=== PATIENT | female | born 1965 | race Caucasian/White ===

== ENCOUNTER 2019-09-04 23:04 | Inpatient (IN) ==
[2019-09-05 00:04] LABS: Appearance Urine Clear (Clear); Bacteria Urine Automated Negative (Negative); Bilirubin Urine Negative (Negative); Blood Urine Trace (Negative); Color Urine Yellow; Glucose Urine UA Negative (Negative); Ketones Urine 3+ (Negative); Leukocyte Esterase Urine 1+ (Negative); Nitrite Urine Negative (Negative); Protein Urine Negative (Negative); RBC Urine Automated 0-4 /hpf (0-4); Specific Gravity Urine 1.016 (1.000-1.030); Urobilinogen Urine Negative (Negative)
[2019-09-05 00:09] LABS: Basophils # (auto) 0.03 K/uL (0-0.2); Basophils % (auto) 0.2 %; Eosinophils # (auto) 0.01 K/uL (0-0.5); Eosinophils % (auto) 0.1 %; Hemoglobin 13.9 g/dL (12.0-16.0); Immature Granulocytes # (auto) 0.05 K/uL (0.00-0.02); Immature Granulocytes % (auto) 0.3 %; Lymphocytes # (auto) 0.46 K/uL (1.2-3.4); Lymphocytes % (auto) 3.1 %; Mean Corpuscular Hemoglobin 29.2 pg (25-34); Mean Corpuscular Hgb Conc 33.1 g/dL (32-36); Mean Corpuscular Volume 88.2 fL (80-100); Mean Platelet Volume 10.7 fL (7.4-10.4); Monocytes # (auto) 0.82 K/uL (0.11-0.59); Monocytes % (auto) 5.6 %; Neutrophils # (auto) 13.39 K/uL (1.4-6.5); Neutrophils % (auto) 90.7 %; Platelet Count 197 K/uL (130-400); RDW Coefficient of Variation 13.3 % (11.5-14.5); RDW Standard Deviation 43.1 fL (36.4-46.3); Red Blood Count 4.76 M/uL (4.2-5.4); White Blood Count 14.76 K/uL (4.8-10.8)
[2019-09-05 00:19] LABS: Partial Thromboplastin Ratio 0.8; Partial Thromboplastin Time 23.7 Seconds (21.0-31.0)
[2019-09-05 00:28] LABS: Albumin Level 3.9 gm/dl (3.4-5.0); BUN Creatinine Ratio 17.9 (10-20); Calcium 9.6 mg/dl (8.5-10.1); Creatinine Clr Calc Pharmacy 98.8 ml/min; Est GFR (African American) 116.1; Est GFR (Non-African American) 100.1; Magnesium 1.6 mg/dl (1.8-2.4); Potassium 3.1 mmol/L (3.5-5.1)
--- NOTE | 2019-09-05 00:30 | Emergency Department Note ---
Impression & Plan Left ureteral calculus, UTI (urinary tract infection), Hydronephrosis, Hypokalemia ED Provider Note NAME: PAULINA HIGGINBOTHAM AGE: 53 SEX: F ARRIVES VIA: Walk-In INFORMANT: [Patient] ED PROVIDER(S): Jeniffer Flowers DO CHIEF COMPLAINT: [Shaking chills and nausea] PLAN: Disposition: [Admitted to the [facility] service] MEDICAL DECISION MAKING: This is a 53-year-old female patient with a longstanding history of previous ureteral calculi, pyelonephritis, hydronephrosis, lithotripsy and ureteral stents. The last episode of a ureteral stent was in [address] Robles. The patient developed urinary symptoms approximately 5 days ago and now has developed shaking chills and nausea. CT scan shows evidence of bilateral hydronephrosis with the left being worse than the right and a 2 mm stone noted in the left mid ureter. The patient has some mild leukocytosis at 14. She has been taking Macrobid as an outpatient for the past 24 hours. She has been started on IV Rocephin the patient will be [facility]. Triage Nursing notes reviewed and agree them. [Prior medical records reviewed] Vital Signs: reviewed and remarkable for low-grade fever Differential diagnosis: [Obstructive uropathy, pyelonephritis, ureteral calculi, sepsis,] ER treatment provided: [Oral Tylenol, oral potassium, IV ceftriaxone, IV normal saline bolus, IV normal saline drip] Diagnostics interpreted by me: ECG: Sinus tachycardia at [address] or T wave changes. No ST segment elevation. No ischemia no ectopy as per my interpretation Cardiac Monitoring: Normal sinus rhythm at a rate of 97 Laboratory studies: [See below] Imaging studies: As per stat rad: CT abdomen and pelvis without contrast: Status post cholecystectomy. Left greater than right hydronephrosis. Left- sided hydroureter with 2 mm mid left ureteral stone. Punctate additional nonobstructive renal calcifications. Normal your uterus. Urinary bladder is unremarkable. HPI: 53/F arrives for evaluation of shaking chills and nausea. The patient developed urinary symptoms approximately 4 days ago. She noticed suprapubic pr essure and urinary frequency. 2 days ago, the patient contacted her PCP by phone and they started her on Macrobid as she does have a history of urinary tract infections. 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. She was there tonight and developed shaking chills and nausea. She has a history of sepsis secondary to obstructing kidney stones and was concerned that might be happening again and came here for evaluation. Nothing seemed to be making the patient's symptoms any better. She had no episodes of vomiting. ROS: See above HPI for pertinent positives & negatives. A total of [10] systems reviewed and were otherwise negative. PAST MEDICAL HISTORY:Pyelonephritis; obstructing kidney stones with stent placement; lithotripsy PAST SURGICAL HISTORY:Stent placement SOCIAL HISTORY:Patient works as a nurse at [employer] HOME MEDICATIONS:Tylenol and Macrobid ALLERGIES:See list VITALS:Stable PHYSICAL EXAMINATION: HEENT: Head - normocephalic and atraumatic Pupils are equal, round, and reactive to light. Extraocular eye muscles are intact, and sclera are anicteric. Nose - moist nasal mucosa without discharge. Mouth - moist buccal mucosa. Oropharynx is nonerythematous and there is no tonsillar exudate or edema noted. Neck: Supple; no JVD, nuchal rigidity, cervical lymphadenopathy. Heart: Regular rate and rhythm. There is a normal S1 and S2 with no murmurs, clicks, or gallops appreciated. Lungs: Clear to auscultation bilaterally with no wheezes, rales, or rhonchi. Abdomen: Soft, completely nontender, nondistended, with good bowel sounds. There are no palpable pulsatile masses or hepatosplenomegaly. There is no guarding, rigidity, or rebound noted. Extremities: No evidence of cyanosis, clubbing, or edema. There are easily palpable peripheral pulses. Skin: warm and dry with good turgor and no rashes. ED COURSE: Times/Reassessments: 0005 the patient was evaluated in room A3. A complete history and physical was performed. An IV lock was initiated and labs were drawn as above. A septic protocol was performed. An order was placed for continuous cardiac monitoring. The patient was in a sinus tachycardia at 104. The patient went for a CT scan of the abdomen/pelvis to rule out obstructive uropathy. The patient will be given a normal saline bolus. 0120: I reevaluated the patient at this time. She was complaining of a headache and will be given Tylenol. I ordered ceftriaxone IV. She will be given oral potassium and started on a normal saline drip. Jeniffer Flowers DO Past Med/Surg History Social History Preferred Language: Danish Feels Safe at Home: Yes Smoking Status: Former smoker Allergies Allergies Allergy/AdvReac Type Severity Reaction Status Date / Time hydromorphone [From Dilaudid] Allergy Severe hallucinati Verified 09/04/19 23:30 ons morphine Allergy Severe Anxiety Verified 09/04/19 23:30 chocolate flavor Allergy Intermediate Hives Verified 09/04/19 23:30 ciprofloxacin Allergy Intermediate Hives Verified 09/04/19 23:30 codeine Allergy Intermediate muscle Verified 09/04/19 23:30 spasms ibuprofen Allergy Intermediate Palpitation Verified 09/05/19 00:39 s acetaminophen [From Percocet] Allergy Mild diaphoretic Verified 09/04/19 23:30 oxycodone [From Percocet] Allergy Mild diaphoretic Verified 09/04/19 23:30 propoxyphene Allergy Mild diaphoresis Verified 09/04/19 23:30 [From Darvocet-N 100] Home Meds Home Medications Medication Instructions Recorded Confirmed acetaminophen [Tylenol] 650 mg PO DIRECTED 09/04/19 09/04/19 nitrofurantoin monohyd/m-cryst 100 mg PO BID 09/04/19 09/04/19 [Macrobid] Results & Data (ED) Vital Signs Vital Signs - 24 hr 09/04/19 23:11 09/04/19 23:53 09/05/19 00:53 Temperature 37.6 C H 37.5 C Temperature Source Oral Oral Pulse Rate 113 H Pulse Rate [Right Finger] 97 H Respiratory Rate 20 16 Respiratory Effort / Characteristics Non-Labored Spontaneous Non-Labored Spontaneous Respiratory Depth Normal Normal Respiratory Pattern Regular Blood Pressure 148/93 H Blood Pressure [Right Arm] 125/82 Blood Pressure Mean 111 Blood Pressure Mean [Right Arm] 96 Blood Pressure Position [Right Arm] Sitting Pulse Oximetry 99 93 95 Oxygen Delivery Method Room Air Room Air Room Air Sepsis Recent Fever Within 48 Hours Yes Sepsis Action Taken by Nursing No Action Required 09/05/19 02:39 Temperature Temperature Source Pulse Rate 85 Pulse Rate [Right Finger] Respiratory Rate 18 Respiratory Effort / Characteristics Respiratory Depth Respiratory Pattern Blood Pressure 104/59 L Blood Pressure [Right Arm] Blood Pressure Mean Blood Pressure Mean [Right Arm] Blood Pressure Position [Right Arm] Pulse Oximetry 95 Oxygen Delivery Method Room Air Sepsis Recent Fever Within 48 Hours Sepsis Action Taken by Nursing Laboratory Data Result diagrams: 09/04/19 23:58 09/04/19 23:58 Lab Results 09/04/19 09/04/19 09/04/19 Range/Units 23:40 23:58 23:58 WBC 14.76 H (4.8-10.8) K/uL RBC 4.76 (4.2-5.4) M/uL Hgb 13.9 (12.0-16.0) g/dL Hct 42.0 (37-47) % MCV 88.2 (80-100) fL MCH 29.2 (25-34) pg MCHC 33.1 (32-36) g/dL RDW Std Deviation 43.1 (36.4-46.3) fL RDW Coeff of Arlene 13.3 (11.5-14.5) % Plt Count 197 (130-400) K/uL MPV 10.7 H (7.4-10.4) fL Immature Gran % (Auto) 0.3 % Neut % (Auto) 90.7 % Lymph % (Auto) 3.1 % [place] % (Auto) 5.6 % Eos % (Auto) 0.1 % Baso % (Auto) 0.2 % Immature Gran # (Auto) 0.05 H (0.00-0.02) K/uL Neut # (Auto) 13.39 H (1.4-6.5) K/uL Lymph # (Auto) 0.46 L (1.2-3.4) K/uL [place] # (Auto) 0.82 H (0.11-0.59) K/uL Eos # (Auto) 0.01 (0-0.5) K/uL Baso # (Auto) 0.03 (0-0.2) K/uL PT 11.0 (9.0-12.0) Seconds INR 1.0 (0.9-1.1) APTT 23.7 (21.0-31.0) Seconds PTT Ratio 0.8 Sodium (136-145) mmol/L Potassium (3.5-5.1) mmol/L Chloride (98-107) mmol/L Carbon Dioxide (21-32) mmol/L Anion Gap (3-11) BUN (7-18) mg/dl Creatinine (0.6-1.2) mg/dl Est Cr Clr Drug Dosing ml/min Est GFR ( Amer) Est GFR (Non-Af Amer) BUN/Creatinine Ratio (10-20) Glucose (70-99) mg/dl Lactate (0.4-2.0) mmol/L Calcium (8.5-10.1) mg/dl Magnesium (1.8-2.4) mg/dl Total Bilirubin (0.2-1) mg/dl AST (15-37) U/L ALT (12-78) U/L Alkaline Phosphatase (45-117) U/L Total Protein (6.4-8.2) gm/dl Albumin (3.4-5.0) gm/dl Globulin (2.5-4.0) gm/dl Albumin/Globulin Ratio (0.9-2) TSH (0.300-4.500) uIu/ml Urine Color Yellow Urine Appearance Clear (Clear) Urine pH 5.0 (4.5-7.5) Ur Specific [place] 1.016 (1.000-1.030) Urine Protein Negative (Negative) Urine Glucose (UA) Negative (Negative) Urine Ketones 3+ H (Negative) Urine Blood Trace H (Negative) Urine Nitrite Negative (Negative) Urine Bilirubin Negative (Negative) Urine Urobilinogen Negative (Negative) Ur Leukocyte Esterase 1+ H (Negative) Urine WBC (Auto) 10-30 H (0-5) /hpf Urine RBC (Auto) 0-4 (0-4) /hpf U Hyaline Cast (Auto) 1-5 (0-5) /lpf U Epithel Cells (Auto) 5-10 H (0-5) /lpf Urine Bacteria (Auto) Negative (Negative) 09/04/19 09/04/19 Range/Units 23:58 23:58 WBC (4.8-10.8) K/uL RBC (4.2-5.4) M/uL Hgb (12.0-16.0) g/dL Hct (37-47) % MCV (80-100) fL MCH (25-34) pg MCHC (32-36) g/dL RDW Std Deviation (36.4-46.3) fL RDW Coeff of Arlene (11.5-14.5) % Plt Count (130-400) K/uL MPV (7.4-10.4) fL Immature Gran % (Auto) % Neut % (Auto) % Lymph % (Auto) % [place] % (Auto) % Eos % (Auto) % Baso % (Auto) % Immature Gran # (Auto) (0.00-0.02) K/uL Neut # (Auto) (1.4-6.5) K/uL Lymph # (Auto) (1.2-3.4) K/uL [place] # (Auto) (0.11-0.59) K/uL Eos # (Auto) (0-0.5) K/uL Baso # (Auto) (0-0.2) K/uL PT (9.0-12.0) Seconds INR (0.9-1.1) APTT (21.0-31.0) Seconds PTT Ratio Sodium 137 (136-145) mmol/L Potassium 3.1 L (3.5-5.1) mmol/L Chloride 105 (98-107) mmol/L Carbon Dioxide 23 (21-32) mmol/L Anion Gap 8.0 (3-11) BUN 12 (7-18) mg/dl Creatinine 0.66 (0.6-1.2) mg/dl Est Cr Clr Drug Dosing 98.8 ml/min Est GFR ( Amer) 116.1 Est GFR (Non-Af Amer) 100.1 BUN/Creatinine Ratio 17.9 (10-20) Glucose 121 H (70-99) mg/dl Lactate 1.0 (0.4-2.0) mmol/L Calcium 9.6 (8.5-10.1) mg/dl Magnesium 1.6 L (1.8-2.4) mg/dl Total Bilirubin 0.8 (0.2-1) mg/dl AST 11 L (15-37) U/L ALT 21 (12-78) U/L Alkaline Phosphatase 91 (45-117) U/L Total Protein 7.6 (6.4-8.2) gm/dl Albumin 3.9 (3.4-5.0) gm/dl Globulin 3.7 (2.5-4.0) gm/dl Albumin/Globulin Ratio 1.1 (0.9-2) TSH 1.140 (0.300-4.500) uIu/ml Urine Color Urine Appearance (Clear) Urine pH (4.5-7.5) Ur Specific [place] (1.000-1.030) Urine Protein (Negative) Urine Glucose (UA) (Negative) Urine Ketones (Negative) Urine Blood (Negative) Urine Nitrite (Negative) Urine Bilirubin (Negative) Urine Urobilinogen (Negative) Ur Leukocyte Esterase (Negative) Urine WBC (Auto) (0-5) /hpf Urine RBC (Auto) (0-4) /hpf U Hyaline Cast (Auto) (0-5) /lpf U Epithel Cells (Auto) (0-5) /lpf Urine Bacteria (Auto) (Negative) Administered Medications Sodium Chloride (Nss) 500 mls @ 125 mls/hr IV .Q4H CHRIS Stop: 10/05/19 01:29 Last Admin: 09/05/19 01:48 Dose: 125 mls/hr Documented by: [id number] Discontinued Medications Acetaminophen (Tylenol) 1,000 mg PO NOW STA Stop: 09/05/19 01:29 Last Admin: 09/05/19 01:42 Dose: 1,000 mg Documented by: [id number] Sodium Chloride (Nss 1000ml) 1,000 mls @ 999 mls/hr IV .Q1H1M ONE Stop: 09/05/19 01:31 Last Infusion: 09/05/19 01:25 Dose: 0 mls/hr Documented by: [id number] Admin: 09/05/19 00:33 Dose: 999 mls/hr Documented by: [id number] Ceftriaxone Sodium (Rocephin) 1,000 mg in 50 mls @ 100 mls/hr IV NOW STA Stop: 09/05/19 01:48 Last Infusion: 09/05/19 01:54 Dose: 0 mls/hr Documented by: [id number] Admin: 09/05/19 01:24 Dose: 100 mls/hr Documented by: [id number] Potassium Chloride (Klor-Con M20) 40 meq PO NOW STA Stop: 09/05/19 01:29 Last Admin: 09/05/19 01:43 Dose: 40 meq Documented by: [id number] Tamsulosin HCl (Flomax) 0.4 mg PO NOW ONE Stop: 09/05/19 01:39 Last Admin: 09/05/19 01:47 Dose: 0.4 mg Documented by: [id number] Tamsulosin HCl (Flomax) Confirm Administered Dose 0.4 mg .ROUTE .STK-MED ONE Stop: 09/05/19 01:41 Last Admin: 09/05/19 01:43 Dose: Not Given Documented by: [id number] Discharge Plan Visit Data Chief Complaint: Urinary Symptoms Stated Complaint: UTI SYMPTOMS, SHAKING, NAUSEA, POSSIBLE KIDNEY STO ED Provider: Jeniffer Flowers Discharge Problem: Left ureteral calculus, UTI (urinary tract infection), Hydronephrosis, Hypokalemia Patient Disposition: Admitted As Inpatient Discharge Instructions Interventions: ED Discharge Assessment Last Done: 09/05/19 02:39 Forms Stand Alone Forms: [facility] [employer] Prescriptions Prescriptions: No Action nitrofurantoin monohyd/m-cryst [Macrobid] 100 mg Capsule 100 mg PO BID RF: 0 acetaminophen [Tylenol] 325 mg Tablet 650 mg PO DIRECTED RF: 0 Referrals Referrals: Elise Zhang MD [Primary Care Provider] - Discharge Problem: UTI (urinary tract infection) Qualifiers: Urinary tract infection type: site unspecified Hematuria presence: without hematuria Qualified Code(s): N39.0 - Urinary tract infection, site not specified Hydronephrosis Qualifiers: Hydronephrosis type: with renal calculous obstruction Qualified Code(s): N13.2 - Hydronephrosis with renal and ureteral calculous obstruction
[2019-09-05 00:31] LABS: Albumin Globulin Ratio 1.1 (0.9-2); Bilirubin,Total 0.8 mg/dl (0.2-1); Globulin 3.7 gm/dl (2.5-4.0); Total Protein 7.6 gm/dl (6.4-8.2)
[2019-09-05] MEDS ORDERED: SODIUM CHLORIDE 0.9% 1000ML 1,000 ML IV ONE (00:31)
[2019-09-05] MEDS ORDERED: cefTRIAXone SODIUM 1,000 MG/50 ML BAG IV STA (01:19)
[2019-09-05] MEDS ORDERED: POTASSIUM CHLORIDE 20 MEQ TABCR PO STA (01:28)
[2019-09-05] MEDS ORDERED: ACETAMINOPHEN 500 MG TAB PO STA (01:28)
[2019-09-05] MEDS ORDERED: SODIUM CHLORIDE 0.9% 500 ML IV SCH (01:30)
[2019-09-05] MEDS ORDERED: TAMSULOSIN HCL 0.4 MG CAP PO ONE (01:38)
[2019-09-05] MEDS ORDERED: TAMSULOSIN HCL 0.4 MG CAP ONE (01:40)
--- NOTE | 2019-09-05 02:13 | History & Physical Report ---
Date of Service September 05, 2019 Assessment & Plan (1) Sepsis: Secondary to complicated UTI secondary to obstructive uropathy Hypokalemia secondary illness Hyperglycemia rule out DM Medical telemetry Cultures, IV Ceftriaxone, IVF Flomax trial Strain urine Urology consult in a.m. RE obstructive uropathy (Patient known to Dr. Robles.) Replace electrolytes Check hemoglobin A1c DVT prophylaxis per Lovenox subcu Full code Text document was generated using [employer] voice recognition software. It may contain grammatical or spelling errors. Kindly contact undersigned for clarification of any documentation item in question. History of Present Illness Chief Complaint: Dysuria Primary Care Provider: Elise Zhang MD History obtained from patient and records. Medical history significant for recurrent nephrolithiasis. 5 days ago patient noted bladder pressure followed by UTI symptoms. Patient contacted PCP who ordered a UA and called in a prescription of Macrobid to patient's pharmacy. Patient compliant with medications. 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 Mild flank discomfort with nausea. No chest pain, no shortness of breath. Achy headache symptoms. At the ER, patient received IV ceftriaxone for sepsis. 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 Allergies Allergy/AdvReac Type Severity Reaction Status Date / Time hydromorphone [From Dilaudid] Allergy Severe hallucinati Verified 09/04/19 23:30 ons morphine Allergy Severe Anxiety Verified 09/04/19 23:30 chocolate flavor Allergy Intermediate Hives Verified 09/04/19 23:30 ciprofloxacin Allergy Intermediate Hives Verified 09/04/19 23:30 codeine Allergy Intermediate muscle Verified 09/04/19 23:30 spasms ibuprofen Allergy Intermediate Palpitation Verified 09/05/19 00:39 s acetaminophen [From Percocet] Allergy Mild diaphoretic Verified 09/04/19 23:30 oxycodone [From Percocet] Allergy Mild diaphoretic Verified 09/04/19 23:30 propoxyphene Allergy Mild diaphoresis Verified 09/04/19 23:30 [From Darvocet-N 100] Home Medications Home Medications Medication Instructions Recorded Confirmed Type acetaminophen [Tylenol] 650 mg PO DIRECTED 09/04/19 09/04/19 History nitrofurantoin monohyd/m-cryst 100 mg PO BID 09/04/19 09/04/19 History [Macrobid] Past Med/Surg History Social History Preferred Language: Armenian Feels Safe at Home: Yes Smoking Status: Former smoker Review of Systems Review of Systems: As per HPI, all 10 systems reviewed, all other ROS negative Physical Exam Physical Exam: GENERAL: Comfortable, slightly anxious, obese, pleasant, no respiratory distress SKIN: Normal color, warm HEENT: [place] palpebral conjunctivae, no ptosis, dry buccal mucosa NECK : Supple, short neck, no tenderness CHEST : CTA, no tenderness HEART : RRR, no obvious murmurs ABDOMEN: Some distention, nontender EXTREMITIES : No LE swelling/tenderness, no other conspicuous deformities noted NEUROLOGIC : Coherent, no facial asymmetry, no other gross focality Results & Data Results & Data ([facility]) Vital Signs (Past 12 Hours) Vital Signs Temp Pulse Pulse Resp BP BP Pulse Ox 09/05/19 00:53 37.5 C 97 H 16 125/82 95 09/04/19 23:53 93 09/04/19 23:11 37.6 C H 113 H 20 148/93 H 99 Laboratory Results Laboratory Results WBC 14.76 K/uL (4.8-10.8) H 09/04/19 23:58 RBC 4.76 M/uL (4.2-5.4) 09/04/19 23:58 Hgb 13.9 g/dL (12.0-16.0) 09/04/19 23:58 Hct 42.0 % (37-47) 09/04/19 23:58 MCV 88.2 fL (80-100) 09/04/19 23:58 MCH 29.2 pg (25-34) 09/04/19 23:58 MCHC 33.1 g/dL (32-36) 09/04/19 23:58 RDW Std Deviation 43.1 fL (36.4-46.3) 09/04/19 23:58 RDW Coeff of Arlene 13.3 % (11.5-14.5) 09/04/19 23:58 Plt Count 197 K/uL (130-400) 09/04/19 23:58 MPV 10.7 fL (7.4-10.4) H 09/04/19 23:58 Immature Gran % (Auto) 0.3 % 09/04/19 23:58 Neut % (Auto) 90.7 % 09/04/19 23:58 Lymph % (Auto) 3.1 % 09/04/19 23:58 [place] % (Auto) 5.6 % 09/04/19 23:58 Eos % (Auto) 0.1 % 09/04/19 23:58 Baso % (Auto) 0.2 % 09/04/19 23:58 Immature Gran # (Auto) 0.05 K/uL (0.00-0.02) H 09/04/19 23:58 Neut # (Auto) 13.39 K/uL (1.4-6.5) H 09/04/19 23:58 Lymph # (Auto) 0.46 K/uL (1.2-3.4) L 09/04/19 23:58 [place] # (Auto) 0.82 K/uL (0.11-0.59) H 09/04/19 23:58 Eos # (Auto) 0.01 K/uL (0-0.5) 09/04/19 23:58 Baso # (Auto) 0.03 K/uL (0-0.2) 09/04/19 23:58 PT 11.0 Seconds (9.0-12.0) 09/04/19 23:58 INR 1.0 (0.9-1.1) 09/04/19 23:58 APTT 23.7 Seconds (21.0-31.0) 09/04/19 23:58 PTT Ratio 0.8 09/04/19 23:58 Sodium 137 mmol/L (136-145) 09/04/19 23:58 Potassium 3.1 mmol/L (3.5-5.1) L 09/04/19 23:58 Chloride 105 mmol/L (98-107) 09/04/19 23:58 Carbon Dioxide 23 mmol/L (21-32) 09/04/19 23:58 Anion Gap 8.0 (3-11) 09/04/19 23:58 BUN 12 mg/dl (7-18) 09/04/19 23:58 Creatinine 0.66 mg/dl (0.6-1.2) 09/04/19 23:58 Est Cr Clr Drug Dosing 98.8 ml/min 09/04/19 23:58 Est GFR ( Amer) 116.1 09/04/19 23:58 Est GFR (Non-Af Amer) 100.1 09/04/19 23:58 BUN/Creatinine Ratio 17.9 (10-20) 09/04/19 23:58 Glucose 121 mg/dl (70-99) H 09/04/19 23:58 Lactate 1.0 mmol/L (0.4-2.0) 09/04/19 23:58 Calcium 9.6 mg/dl (8.5-10.1) 09/04/19 23:58 Magnesium 1.6 mg/dl (1.8-2.4) L 09/04/19 23:58 Total Bilirubin 0.8 mg/dl (0.2-1) 09/04/19 23:58 AST 11 U/L (15-37) L 09/04/19 23:58 ALT 21 U/L (12-78) 09/04/19 23:58 Alkaline Phosphatase 91 U/L (45-117) 09/04/19 23:58 Total Protein 7.6 gm/dl (6.4-8.2) 09/04/19 23:58 Albumin 3.9 gm/dl (3.4-5.0) 09/04/19 23:58 Globulin 3.7 gm/dl (2.5-4.0) 09/04/19 23:58 Albumin/Globulin Ratio 1.1 (0.9-2) 09/04/19 23:58 Urine Color Yellow 09/04/19 23:40 Urine Appearance Clear (Clear) 09/04/19 23:40 Urine pH 5.0 (4.5-7.5) 09/04/19 23:40 Ur Specific [place] 1.016 (1.000-1.030) 09/04/19 23:40 Urine Protein Negative (Negative) 09/04/19 23:40 Urine Glucose (UA) Negative (Negative) 09/04/19 23:40 Urine Ketones 3+ (Negative) H 09/04/19 23:40 Urine Blood Trace (Negative) H 09/04/19 23:40 Urine Nitrite Negative (Negative) 09/04/19 23:40 Urine Bilirubin Negative (Negative) 09/04/19 23:40 Urine Urobilinogen Negative (Negative) 09/04/19 23:40 Ur Leukocyte Esterase 1+ (Negative) H 09/04/19 23:40 Urine WBC (Auto) 10-30 /hpf (0-5) H 09/04/19 23:40 Urine RBC (Auto) 0-4 /hpf (0-4) 09/04/19 23:40 U Hyaline Cast (Auto) 1-5 /lpf (0-5) 09/04/19 23:40 U Epithel Cells (Auto) 5-10 /lpf (0-5) H 09/04/19 23:40 Urine Bacteria (Auto) Negative (Negative) 09/04/19 23:[address] abdomen pelvis: Left greater than the right hydronephrosis. Left-sided hydroureter with 2 mm mid left ureteral stone. Normal uterus. Urinary bladder is unremarkable. Chest x-ray as per my interpretation atelectasis EKG as per my interpretation : Rate 105, sinus tachycardia, LAD, LAFB, LVH, upsloping ST depression anterolateral leads
[2019-09-05 02:20] LABS: Thyroid Stimulating Hormone 1.14 uIu/ml (0.300-4.500)
[2019-09-05] MEDS ORDERED: TRAMADOL HCL 50 MG TABLET PO PRN (03:14)
[2019-09-05] MEDS ORDERED: MoRPHine SULFATE 2 MG/ML CARP IV PRN (03:14)
[2019-09-05] MEDS ORDERED: LORazepam 0.25 MG/0.5 ML VIAL IV PRN (03:14)
[2019-09-05] MEDS ORDERED: PROMETHAZINE HCL 12.5 MG in SODIUM CHLORIDE 0.9% 50 ML IV PRN (03:14)
[2019-09-05] MEDS: POTASSIUM CHLORIDE 40 MEQ in SODIUM CHLORIDE 0.9% 1000ML 1,000 ML IV SCH ×2 (03:56→16:44)
[2019-09-05] MEDS: MAGNESIUM SULFATE / D5W 1 GM/100 ML BAG IV SCH ×2 (03:56→04:56)
--- NOTE | 2019-09-05 05:32 | XRay Report ---
XR chest 1V portable CLINICAL HISTORY: SEPSIS dyspnea COMPARISON STUDY: No previous studies for comparison. FINDINGS: The bones soft tissues and hemidiaphragms are normal. The cardiomediastinal silhouette is n ormal. The lungs are clear. The pulmonary vasculature is normal. IMPRESSION: Negative chest. ACT 112: Negative or not required by law. The above report was generated using voice recognition software. It may contain grammatical, syntax or spelling errors. Electronically signed by: Ambrose Hinton M.D. 09/05/2019 5:31 AM
--- NOTE | 2019-09-05 05:47 | CT Scan Report ---
CT abd pelvis wo con CT DOSE: 745.39 mGy.cm HISTORY: Flank pain eval for hydro and kidney stone TECHNIQUE: Multiaxial CT images of the abdomen and pelvis were performed without contrast. A dose lo wering technique was utilized adhering to the principles of ALARA. COMPARISON STUDY: None. FINDINGS: Lung bases are clear. Liver spleen and pancreas are unremarkable. Prior cholecystectomy. The several 2 mm or smaller nonobstructing calcifications bilaterally involving the kidneys. Moderate left renal hydronephrosis and hydroureter. 3 mm obstructing calculus left ureter at the level of the mid left sacroiliac joint. Nonobstructive bowel pattern. Bladder is midline. IMPRESSION: 1. 3 mm obstructing calculus distal left ureter at the level of mid left sacroiliac joint. 2. Moderate left hydroureteronephrosis. 3. Bilateral nonobstructing renal cortical nephrocalcinosis. ACT 112: Negative or not required by law. The above report was generated using voice recognition software. It may contain grammatical, syntax or spelling errors. Electronically signed by: Ambrose Hinton M.D. 09/05/2019 5:46 AM
[2019-09-05 06:21] LABS: Basophils # (auto) 0.02 K/uL (0-0.2); Basophils % (auto) 0.2 %; Eosinophils # (auto) 0.01 K/uL (0-0.5); Eosinophils % (auto) 0.1 %; Hematocrit (blood only) 37.5 % (37-47); Immature Granulocytes # (auto) 0.02 K/uL (0.00-0.02); Immature Granulocytes % (auto) 0.2 %; Lymphocytes % (auto) 7.8 %; Mean Corpuscular Hemoglobin 28.4 pg (25-34); Mean Corpuscular Volume 88.9 fL (80-100); Mean Platelet Volume 11.2 fL (7.4-10.4); Monocytes # (auto) 0.81 K/uL (0.11-0.59); Monocytes % (auto) 6.3 %; Neutrophils % (auto) 85.4 %; Platelet Count 197 K/uL (130-400); RDW Coefficient of Variation 13.3 % (11.5-14.5); RDW Standard Deviation 43.5 fL (36.4-46.3); Red Blood Count 4.22 M/uL (4.2-5.4); White Blood Count 12.86 K/uL (4.8-10.8)
[2019-09-05 06:49] LABS: BUN Creatinine Ratio 14.1 (10-20); Calcium 8.6 mg/dl (8.5-10.1); Creatinine Clr Calc Pharmacy 114.5 ml/min; Est GFR (African American) 121.8; Est GFR (Non-African American) 105.1; Magnesium 2.6 mg/dl (1.8-2.4); Potassium 3.5 mmol/L (3.5-5.1)
[2019-09-05] MEDS ORDERED: ENOXAPARIN INJ 40 MG/0.4 ML SYR SQ SCH (09:00)
--- NOTE | 2019-09-05 12:12 | Electrocardiogram Report ---
Test Reason : Blood Pressure : / mmHG Vent. Rate : 102 BPM Atrial Rate : 102 BPM P-R Int : 140 ms QRS Dur : 090 ms QT Int : 342 ms P-R-T Axes : 037 -02 020 degrees QTc Int : 445 ms Sinus tachycardia Minimal voltage criteria for LVH, may be normal variant Nonspecific ST abnormality Abnormal ECG No previous ECGs available Confirmed by Jean Carlos Galloway ([id number]) on 09/05/2019 12:11:44 PM Referred By: REFERRED SELF Confirmed By:Jean Carlos Galloway
[2019-09-05] MEDS: ACETAMINOPHEN 325 MG TAB PO PRN ×2 (12:54→21:25)
--- NOTE | 2019-09-05 13:22 | Urology Consultation ---
Date of Consultation September 05, 2019 Assessment & Plan (1) Left ureteral calculus: Small 3mm left distal stone. Min hydro. Min pain. No fever in the last 24 hours. Overall she has improved with IV Fluids and abx. Would rec continuing a trial of passage with fluids, flomax, pain control, and straining urine. F/U cultures. Re-eval in AM. OK to give diet today. (2) UTI (urinary tract infection): History of Present Illness Attending Physician: Rajeev Bo MD 53 y/o Female with long hx of stones. Presented to the ED last night with severe chills and shaking. No fever. No CP. No SOB. She reports increased urge and freq. Dysuria. No hematuria. CT scan performed and showed a 3mm distal left ureteral stone with mild hydro. B/L small stones <2mm. In the ED she was started on broad spec abx. Urine cx and blood cx pending. WBC: 14 --> 12. Cr: 0.6 She states that she began to feel unwell last wed. Thought it was a UTI. Called PCP who started her on Macrobid. Sxs persisted and came in from work last night. In the past she has had a variety of treatments for stones including ESWL and Stents. Allergies Allergy/AdvReac Type Severity Reaction Status Date / Time hydromorphone [From Dilaudid] Allergy Severe hallucinati Verified 09/04/19 23:30 ons morphine Allergy Severe Anxiety Verified 09/04/19 23:30 chocolate flavor Allergy Intermediate Hives Verified 09/04/19 23:30 ciprofloxacin Allergy Intermediate Hives Verified 09/04/19 23:30 codeine Allergy Intermediate muscle Verified 09/04/19 23:30 spasms ibuprofen Allergy Intermediate Palpitation Verified 09/05/19 00:39 s acetaminophen [From Percocet] Allergy Mild diaphoretic Verified 09/04/19 23:30 oxycodone [From Percocet] Allergy Mild diaphoretic Verified 09/04/19 23:30 propoxyphene Allergy Mild diaphoresis Verified 09/04/19 23:30 [From Darvocet-N 100] Home Medications Home Medications Medication Instructions Recorded Confirmed Type acetaminophen [Tylenol] 650 mg PO DIRECTED 09/04/19 09/04/19 History nitrofurantoin monohyd/m-cryst 100 mg PO BID 09/04/19 09/04/19 History [Macrobid] Patient History Social History Preferred Language: [place] Beliefs That Will Affect Care: None Current Living Situation: Alone Other Information That Helps Us Care for You: No Feels Safe at Home: Yes Smoking Status: Former smoker Do You Dip or Chew Tobacco: No ; Second Hand Exposure: No ; Tobacco Cessation Education Requested by Patient: No Hx Alcohol Use: Yes Hx Substance Use: No Review of Systems Review of Systems: All systems reviewed & are unremarkable except as noted in HPI & below Physical Exam Constitutional: WD/WN, vitals as above well developed Eyes: PERRL, conjunctivae normal, anicteric sclerae ENMT: external ear and nose normal, oropharynx normal Neck: trachea midline, no thyromegaly Respiratory: normal respiratory effort, lungs clear to auscultation Cardiovascular: RRR, no murmur, no edema Gastrointestinal (Abdomen): normal bowel sounds, soft, nontender, no hepatosplenomegaly Musculoskeletal: no cyanosis or clubbing, extremities motor strength 5/5 Skin: no rashes, warm and dry Psychiatric: A+Ox3, euthymic affect Genitourinary: no vaginal lesions, no adnexal mass Lymphatic: no cervical or axillary lymphadenopathy Results & Data Vital Signs (Past 12 Hours) Vital Signs Temp Pulse Pulse Resp BP BP Pulse Ox 09/05/19 11:14 37.1 C 76 18 105/69 96 09/05/19 07:39 60 09/05/19 07:00 36.6 C 55 L 18 99/63 L 95 09/05/19 03:19 36.7 C 81 20 103/59 L 95 09/05/19 02:39 85 18 104/59 L 95 (1) UTI (urinary tract infection) Hematuria presence: without hematuria Urinary tract infection type: site unspecified Qualified Code(s): N39.0 - Urinary tract infection, site not specified
--- NOTE | 2019-09-05 15:56 | Hospitalist Progress Note ---
Date of Service September 05, 2019 Assessment & Plan (1) Sepsis: Sepsis Complicated UTI Left Ureteral Calculus/Obstructive Uropathy CT ABD: 3 mm obstructing calculus distal left ureter at the level of mid left sacroiliac joint. Moderate left hydroureteronephrosis. Bilateral nonobstructing renal cortical nephrocalcinosis. Blood/Urine Cx:Pending Follows with -Outpatient Continue IV fluids, IV Ceftriaxone Continue pain control, flomax, strain Urine Appreciate Urology Input Hypokalemia Hypomagnesemia Replace electrolytes as needed Monitor Hyperglycemia R/O DM II Hb A1C:pending DVT Px: Heparin SQ Code Status Full code Admission and Anticipated Discharge Date Admission Date: September 05, 2019 Subjective Patient is seen and examined at bedside States feeling better today Dysuria/Bladder pressure improved Denies flank pain, hematuria Also denies any chest pain, SOB, dizziness, nausea, abd pain Review of Systems Review of Systems: All systems reviewed & are unremarkable except as noted in HPI & below Physical Exam Physical Exam: Physical Exam: Vitals signs as noted above General Appearance:Moderately built and nourished, no apparent distress Head: normocephalic, Atraumatic Eyes: normal inspection, EOMI Neck: supple, Trachea midline Respiratory/Chest: Normal breath sounds, CTA Cardiovascular: S1, S2, No murmur Abdomen/GI:Soft, Left flank tender, Bowel sounds present Extremities/Musculoskelatal:normal inspection, no edema Neurologic/Psych:AAOX3, grossly no focal neurological deficits Skin: normal color, warm Results & Data Results & [facility] ([facility]) Vital Signs (Past 12 Hours) Vital Signs Temp Pulse Pulse Resp BP BP Pulse Ox 09/05/19 15:06 86 18 98/63 L 94 09/05/19 11:14 37.1 C 76 18 105/69 96 09/05/19 07:39 60 09/05/19 07:00 36.6 C 55 L 18 99/63 L 95 Laboratory Results Short CBC 09/04/19 09/05/19 Range/Units 23:58 05:26 WBC 14.76 H 12.86 H (4.8-10.8) K/uL Hgb 13.9 12.0 (12.0-16.0) g/dL Hct 42.0 37.5 (37-47) % Plt Count 197 197 (130-400) K/uL BMP 09/04/19 09/05/19 23:58 05:26 Sodium 137 140 Potassium 3.1 L 3.5 Chloride 105 108 H Carbon Dioxide 23 25 BUN 12 8 Creatinine 0.66 0.57 L Glucose 121 H 137 H Calcium 9.6 8.6 Liver Function 09/04/19 Range/Units 23:58 Total Bilirubin 0.8 (0.2-1) mg/dl AST 11 L (15-37) U/L ALT 21 (12-78) U/L Alkaline Phosphatase 91 (45-117) U/L Albumin 3.9 (3.4-5.0) gm/dl Urine 09/04/19 Range/Units 23:40 Urine Color Yellow Urine Appearance Clear (Clear) Urine pH 5.0 (4.5-7.5) Ur Specific [place] 1.016 (1.000-1.030) Urine Protein Negative (Negative) Urine Glucose (UA) Negative (Negative)
[2019-09-05] MEDS: HEPARIN SOD 5,000 UNIT/0.5 ML VIAL SQ SCH (21:45)
[2019-09-05] MEDS ORDERED: cefTRIAXone SODIUM 2,000 MG in DEXTROSE 5% 50 ML IV SCH (22:00)
[2019-09-05] MEDS ORDERED: LORATADINE 10 MG TAB PO ONE (22:48)
--- NOTE | 2019-09-05 22:50 | Communication Note ---
Date of Service: September 05, 2019 Made aware by RN of small rash on patient's abdomen after second dose of ceftriaxone. No other symptoms per RN. AP Ceftriaxone hypersensitivity Benadryl 1 dose now Add ceftriaxone to allergy list Azactam in place of ceftriaxone for complicated UTI for now. Will relay to AM provider.
[2019-09-06] MEDS ORDERED: AZTREONAM CONSULT ACTIVE PRN (04:01)
[2019-09-06 05:38] LABS: Estimated Average Glucose 117 mg/dl; Hemoglobin A1C 5.7 % (4.5-5.6)
[2019-09-06] MEDS: POTASSIUM CHLORIDE 40 MEQ in SODIUM CHLORIDE 0.9% 1000ML 1,000 ML IV SCH (05:39)
[2019-09-06] MEDS: AZTREONAM 1,000 MG in DEXTROSE 5% 100 ML IV SCH ×2 (05:42→13:47)
[2019-09-06 06:19] LABS: Basophils # (auto) 0.02 K/uL (0-0.2); Basophils % (auto) 0.3 %; Eosinophils # (auto) 0.13 K/uL (0-0.5); Eosinophils % (auto) 1.9 %; Hematocrit (blood only) 40.3 % (37-47); Hemoglobin 12.9 g/dL (12.0-16.0); Immature Granulocytes # (auto) 0.01 K/uL (0.00-0.02); Immature Granulocytes % (auto) 0.1 %; Lymphocytes # (auto) 0.98 K/uL (1.2-3.4); Lymphocytes % (auto) 14.1 %; Mean Corpuscular Hemoglobin 28.9 pg (25-34); Mean Corpuscular Volume 90.2 fL (80-100); Mean Platelet Volume 11.1 fL (7.4-10.4); Monocytes # (auto) 0.68 K/uL (0.11-0.59); Monocytes % (auto) 9.8 %; Neutrophils # (auto) 5.13 K/uL (1.4-6.5); Neutrophils % (auto) 73.8 %; Platelet Count 187 K/uL (130-400); RDW Coefficient of Variation 13.6 % (11.5-14.5); RDW Standard Deviation 45.4 fL (36.4-46.3); Red Blood Count 4.47 M/uL (4.2-5.4); White Blood Count 6.95 K/uL (4.8-10.8)
[2019-09-06 06:57] LABS: BUN Creatinine Ratio 13.2 (10-20); Calcium 8.8 mg/dl (8.5-10.1); Creatinine Clr Calc Pharmacy 109.3 ml/min; Est GFR (African American) 119.8; Est GFR (Non-African American) 103.3; Magnesium 1.9 mg/dl (1.8-2.4); Potassium 4.2 mmol/L (3.5-5.1)
[2019-09-06] MEDS ORDERED: TAMSULOSIN HCL 0.4 MG CAP PO SCH (09:00)
[2019-09-06] MEDS: HEPARIN SOD 5,000 UNIT/0.5 ML VIAL SQ SCH (09:20)
--- NOTE | 2019-09-06 12:09 | Hospitalist Progress Note ---
Date of Service September 06, 2019 Assessment & Plan (1) Sepsis: Sepsis Complicated UTI Left Ureteral Calculus/Obstructive Uropathy CT ABD: 3 mm obstructing calculus distal left ureter at the level of mid left sacroiliac joint. Moderate left hydroureteronephrosis. Bilateral nonobstructing renal cortical nephrocalcinosis. 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 DVT Px: Heparin SQ Code Status Full code Admission and Anticipated Discharge Date Admission Date: September 05, 2019 Subjective Patient is seen and examined at bedside Nauseous this morning Patient developed a rash overnight which currently resolved Dysuria resolved Denies vomiting, flank pain, hematuria, chest pain, SOB, dizziness, nausea, abd pain Has been afebrile Urine Cx pending Review of Systems Review of Systems: All systems reviewed & are unremarkable except as noted in HPI & below Physical Exam Physical Exam: Physical Exam: Vitals signs as noted above General Appearance:Moderately built and nourished, no apparent distress Head: normocephalic, Atraumatic Eyes: normal inspection, EOMI Neck: supple, Trachea midline Respiratory/Chest: Normal breath sounds, CTA Cardiovascular: S1, S2, No murmur Abdomen/GI:Soft, Left flank tender, Bowel sounds present Extremities/Musculoskelatal:normal inspection, no edema Neurologic/Psych:AAOX3, grossly no focal neurological deficits Skin: normal color, warm Results & Data Results & Data ([facility]) Vital Signs (Past 12 Hours) Vital Signs Temp Pulse Pulse Resp BP BP Pulse Ox 09/06/19 11:21 37.2 C 71 16 110/69 95 09/06/19 07:15 37.5 C 79 16 123/81 92 09/06/19 07:00 77 09/06/19 04:00 36.9 C 75 20 135/73 98 Laboratory Results Short CBC 09/06/19 Range/Units 06:00 WBC 6.95 (4.8-10.8) K/uL Hgb 12.9 (12.0-16.0) g/dL Hct 40.3 (37-47) % Plt Count 187 (130-400) K/uL BMP 09/06/19 06:00 Sodium 139 Potassium 4.2 D Chloride 110 H Carbon Dioxide 21 BUN 8 Creatinine 0.60 Glucose 99 Calcium 8.8
--- NOTE | 2019-09-06 17:13 | Discharge Summary ---
Date of Service September 06, 2019 Admission HPI Per Admitting Provider History obtained from patient and records. Medical history significant for recurrent nephrolithiasis. 5 days ago patient noted bladder pressure followed by UTI symptoms. Patient contacted PCP who ordered a UA and called in a prescription of Macrobid to patient's pharmacy. Patient compliant with medications. 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 Mild flank discomfort with nausea. No chest pain, no shortness of breath. Achy headache symptoms. At the ER, patient received IV ceftriaxone for sepsis. 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 Admission Exam Per Admitting Provider Physical Exam Physical Exam: GENERAL: Comfortable, slightly anxious, obese, pleasant, no respiratory distress SKIN: Normal color, warm HEENT: [place] palpebral conjunctivae, no ptosis, dry buccal mucosa NECK : Supple, short neck, no tenderness CHEST : CTA, no tenderness HEART : RRR, no obvious murmurs ABDOMEN: Some distention, nontender EXTREMITIES : No LE swelling/tenderness, no other conspicuous deformities noted NEUROLOGIC : Coherent, no facial asymmetry, no other gross focality Principal Diagnosis Left Ureteral Calculus/Obstructive Uropathy SIRS Hypokalemia Discharge Data Allergies Allergy/AdvReac Type Severity Reaction Status Date / Time hydromorphone [From Dilaudid] Allergy Severe hallucinati Verified 09/04/19 23:30 ons morphine Allergy Severe Anxiety Verified 09/04/19 23:30 chocolate flavor Allergy Intermediate Hives Verified 09/04/19 23:30 ciprofloxacin Allergy Intermediate Hives Verified 09/04/19 23:30 codeine Allergy Intermediate muscle Verified 09/04/19 23:30 spasms ibuprofen Allergy Intermediate Palpitation Verified 09/05/19 00:39 s acetaminophen [From Percocet] Allergy Mild diaphoretic Verified 09/04/19 23:30 ceftriaxone Allergy Mild rash Verified 09/05/19 22:49 oxycodone [From Percocet] Allergy Mild diaphoretic Verified 09/04/19 23:30 propoxyphene Allergy Mild diaphoresis Verified 09/04/19 23:30 [From Darvocet-N 100] Consultations 09/05/19 01:28 ED Decision to Admit Stat 09/05/19 03:14 Consult Urology Routine Ordered Studies 09/05/19 00:31 CT abd pelvis wo con Urgent Hospital Course (1) Sepsis: SIRS Complicated UTI--Ruled out Left Ureteral Calculus/Obstructive Uropathy CT ABD: 3 mm obstructing calculus distal left ureter at the level of mid left sacroiliac joint. Moderate left hydroureteronephrosis. Bilateral nonobstructing renal cortical nephrocalcinosis. 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 DVT Px: Heparin SQ Code Status Full code Total Time Total Time Spent Total Time Spent (In Minutes): 38 minutes Total Time Includes: Examination of the Patient, Discharge Planning, Medication Reconciliation, Communication With Other Providers and Other Discharge Plan Discharge Items Patient Disposition: Home - Self-Care Reason For Visit: SEPSIS Discharge Diagnosis: Left Ureteral Calculus/Obstructive Uropathy Possible Sepsis Activity: Resume your previous activity Exercise/Sports: Gradually increase as tolerated Non-emergency contact: Primary Care Provider and Urologist Call non-emergency contact if: you have any medication questions, your symptoms worsen, your pain is not controlled, your pain is worsening, your pain is unusual for you, your pain is concerning for you and you have a fever Follow-up/Referrals: Elise Zhang MD [Primary Care Provider] - 09/13/19 11:20 am Diet: Regular Addtl Attending Provider Instructions: Follow up with your Primary Care Physician on 09/13/19 Follow up with your Urologist in 1-2 weeks Complete the antibiotic course as prescribed Seek immediate medical attention if your symptoms reoccur or worsen Your blood Cultures are pending at the time of discharge. Please follow up with your physician with results. Pending Studies at Discharge: Yes Studies:: Blood Cultures Stand-Alone Forms: My [employer], Smoking Cessation Medications and DC Order Prescriptions: New tamsulosin 0.4 mg Capsule 0.4 mg PO QAM Qty: 30 RF: 0 sulfamethoxazole-trimethoprim [Bactrim DS] 800-160 mg tablet 1 tab PO BID Qty: 6 RF: 0 ondansetron HCl [Zofran] 4 mg tablet 4 mg PO Q8H PRN (Reason: nausea and vomiting) Qty: 4 RF: 0 Continued acetaminophen [Tylenol] 325 mg Tablet 650 mg PO DIRECTED RF: 0 Discontinued nitrofurantoin monohyd/m-cryst [Macrobid] 100 mg Capsule 100 mg PO BID RF: 0 Discharge Orders: Discharge Order (Routine); Ordered 09/06/19 Ordered By: Rajeev Bo Admission Data Admit Date/Time: 09/05/19 02:14 Attending Provider: Rajeev Bo Admit Provider: Ranjit Zavala Primary Care Provider: Elise Zhang Other Providers: Ranjit Zavala ; Sia Robles
== END 2019-09-06 17:50 | disposition home or self-care (01) | DRG 872 ==
LOC: ED 23:04 → 2W 09-05 02:14

== ENCOUNTER 2019-09-22 04:21 | Inpatient (IN) ==
[2019-09-22] MEDS ORDERED: KETOROLAC TROMETHAMINE 15 MG/ML VIAL IV STA (04:44)
[2019-09-22] MEDS ORDERED: SODIUM CHLORIDE 0.9% 1000ML 1,000 ML IV ONE (04:44)
--- NOTE | 2019-09-22 04:49 | Emergency Department Note ---
Impression & Plan Pyelonephritis, Hydronephrosis, left ED Provider Note Name: PAULINA HIGGINBOTHAM Age: 53 Sex: F Arrives Via: Walk-In Informant: Patient ED Provider: Romel Reyes MD Chief Complaint: Left Flank pain Impression: Pyelonephritis Left Hydronephrosis Medical Decision Makin yr old female with extensive history of kidney stones who was admitted with sepsis and obstructing left ureteral stone 2 weeks ago. Treated conservatively with Bactrim and discharged without ureteral intervention at that time. Was initially doing well though much worse the last few days, especially tonight. Pyelonephritis by exam and UA evaluation. US with moderate+ hydro of left and concern for pyelo by US. She has increasing WBC again. She has normal lactate at this time fortunately. Cultures pending. She was given IV zosyn as known cipro, cephalosporin allergies and just finished bactrim. LFTs mildly bumped. She denies more than 2 gm tylenol in any 24 hr setting, denies etoh. Suspect drug induced or early septic induced hepatitis. She however does not appear septic, is not hypotensive/tachy, and Lactate OK. Given IV fluids for hydration. Hospitalist consulted as she will not benefit from discharge at this time and needs further work-up intervention. I will hold off on repeat CT as she just had one 2 weeks ago for similar symptoms. Prior Medical Record and Triage/Nursing Notes reviewed by Me Differentials:Renal colic, UTI, appendicitis, diverticulitis, mesenteric ischemia, aortic pathology, infections, inflammatory bowel disease, PUD, biliary pathology, as well as other pathologies. Vital Signs: reviewed and remarkable for HTN on arrival improved on repeat Interventions: saline lock, toradol 15mg IV, nss bolus 1 L IV, zosyn 4.5gm IV Labs:Reviewed and remarkable for increasing WBC Imaging: [facility] Radiologist interpretation reviewed by me: "US RENAL: Normal right kidney. Left kidney measures 12.2 cm in length. There is at least moderate left hydronephrosis. There is dilatation of the left ureter up to 9 mm and question of urothelial thickening concerning for left upper collecting system infection. Limited exam due to overlying bowel gas. Bilateral ureteral jets identified right worse than left." Consults:Dr Sally Donaldson hospitalist Plan: Disposition:Hospitalization. Condition: Good Blood pressure:Normal on repeat History of Present Illness:53 / F arrives for evaluation of left flank pain. Patient with known 3 mm left distal ureteral stone 2 weeks ago during which she was admitted for sepsis from UTI. Finished abx and flomas though noting persistent achiing pain left flank. The last few nights worsening pain controlled with tylenol. Tonight severe left flank pain radiating to groin. Associated nausea improved with zofran tonight. Notes burning with urination t he last few hours. No fevers but has been having chills. nothing makes better nor worse. no trauma nor injury. Denies cp, sob, back pain, leg swelling, abdominal pain, rashes nor other symptoms. Long history of renal colic. ROS: See above HPI for pertinent positives & negatives. A total of 10 systems reviewed and were otherwise negative. 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 EYES: No scleral icterus, unremarkable pupils. ENT: Mucous membranes moist, no nasal congestion. NECK: No masses appreciated, nomeningismus, trachea is midline. RESPIRATORY: No dyspnea. Clear to auscultation and equal bilaterally. No wheeze, no rhonchi. CARDIOVASCULAR: Regular rate and rhythm.No murmurs, rubs, gallops appreciated. GASTROINTESTINAL: Abdomen soft, non-tender, no peritonitis.Bowel sounds positive.No masses appreciated. BACK: ++ left CVA TTP, No midline tenderness EXTREMITIES: Normal motion all extremities, no cyanosis, no edema. NEUROLOGIC: Alert and oriented, no acute motor or sensory deficits, no focal weakness, cranial nerves grossly intact. SKIN: No rash, no jaundice, no diaphoresis. PSYCH: Appropriate GCS: 15 ED Course: Times/Reassessments: Improvement in pain, BP improved, agreeable to hospitization Romel Reyes MD Past Med/Surg History Social History Preferred Language: Uzbek Beliefs That Will Affect Care: None Current Living Situation: Alone Feels Safe at Home: Yes Smoking Status: Never smoker Second Hand Exposure: No ; Hx Alcohol Use: Yes Hx Substance Use: No Allergies Allergies Allergy/AdvReac Type Severity Reaction Status Date / Time hydromorphone [From Dilaudid] Allergy Severe hallucinati Verified 09/22/19 04:49 ons morphine Allergy Severe Anxiety Verified 09/22/19 04:49 caffeine Allergy Intermediate Hives Verified 09/22/19 04:49 ciprofloxacin Allergy Intermediate Hives Verified 09/22/19 04:49 codeine Allergy Intermediate muscle Verified 09/22/19 04:49 spasms ibuprofen Allergy Intermediate Palpitation Verified 09/22/19 04:49 s acetaminophen [From Percocet] Allergy Mild diaphoretic Verified 09/22/19 04:49 ceftriaxone Allergy Mild rash Verified 09/22/19 04:49 oxycodone [From Percocet] Allergy Mild diaphoretic Verified 09/22/19 04:49 propoxyphene Allergy Mild diaphoresis Verified 09/22/19 04:49 [From Darvocet-N 100] Home Meds Home Medications Medication Instructions Recorded Confirmed acetaminophen [Tylenol] 650 mg PO DIRECTED 09/04/19 09/22/19 Previous Rx's Medication Instructions Recorded ondansetron HCl [Zofran] 4 mg PO Q8H PRN #4 tab 09/06/19 tamsulosin 0.4 mg PO QAM #30 cap 09/06/19 Results & Data (ED) Vital Signs Vital Signs - 24 hr 09/22/19 04:24 Temperature 37 C Temperature Source Oral Pulse Rate 105 H Respiratory Rate 18 Respiratory Effort / Characteristics Non-Labored Respiratory Depth Normal Blood Pressure 160/87 H Blood Pressure Mean 111 Pulse Oximetry 95 Oxygen Delivery Method Room Air Sepsis Recent Fever Within 48 Hours No Sepsis Action Taken by Nursing No Action Required Laboratory Data Result diagrams: 09/22/19 04:50 09/22/19 04:50 Lab Results 09/22/19 09/22/19 09/22/19 Range/Units 04:50 04:50 04:50 WBC 12.68 H (4.8-10.8) K/uL RBC 4.69 (4.2-5.4) M/uL Hgb 13.7 (12.0-16.0) g/dL Hct 41.7 (37-47) % MCV 88.9 (80-100) fL MCH 29.2 (25-34) pg MCHC 32.9 (32-36) g/dL RDW Std Deviation 46.6 H (36.4-46.3) fL RDW Coeff of Arlene 14.4 (11.5-14.5) % Plt Count 258 (130-400) K/uL MPV 10.6 H (7.4-10.4) fL Immature Gran % (Auto) 0.2 % Neut % (Auto) 83.0 % Lymph % (Auto) 9.9 % Luce % (Auto) 6.5 % Eos % (Auto) 0.2 % Baso % (Auto) 0.2 % Immature Gran # (Auto) 0.02 (0.00-0.02) K/uL Neut # (Auto) 10.54 H (1.4-6.5) K/uL Lymph # (Auto) 1.25 (1.2-3.4) K/uL Luce # (Auto) 0.83 H (0.11-0.59) K/uL Eos # (Auto) 0.02 (0-0.5) K/uL Baso # (Auto) 0.02 (0-0.2) K/uL Sodium 130 L (136-145) mmol/L Potassium 3.6 (3.5-5.1) mmol/L Chloride 106 (98-107) mmol/L Carbon Dioxide 27 (21-32) mmol/L Anion Gap -3.0 L (3-11) BUN 12 (7-18) mg/dl Creatinine 0.77 (0.6-1.2) mg/dl Est Cr Clr Drug Dosing 86.3 ml/min Est GFR ( Amer) 101.5 Est GFR (Non-Af Amer) 87.5 BUN/Creatinine Ratio 16.2 (10-20) Glucose 137 H (70-99) mg/dl Lactate 1.0 (0.4-2.0) mmol/L Calcium 9.6 (8.5-10.1) mg/dl Total Bilirubin 0.9 (0.2-1) mg/dl Direct Bilirubin 0.4 H (0-0.2) mg/dl AST 53 H (15-37) U/L ALT 151 H (12-78) U/L Alkaline Phosphatase 160 H (45-117) U/L Total Protein 7.9 (6.4-8.2) gm/dl Albumin 3.8 (3.4-5.0) gm/dl Lipase 91 (73-393) U/L Urine Color Urine Appearance (Clear) Urine pH (4.5-7.5) Ur Specific [place] (1.000-1.030) Urine Protein (Negative) Urine Glucose (UA) (Negative) Urine Ketones (Negative) Urine Blood (Negative) Urine Nitrite (Negative) Urine Bilirubin (Negative) Urine Urobilinogen (Negative) Ur Leukocyte Esterase (Negative) Urine WBC (Auto) (0-5) /hpf Urine RBC (Auto) (0-4) /hpf U Hyaline Cast (Auto) (0-5) /lpf U Epithel Cells (Auto) (0-5) /lpf Urine Bacteria (Auto) (Negative) Urine Test (Negative) 09/22/19 09/22/19 Range/Units 04:50 04:50 WBC (4.8-10.8) K/uL RBC (4.2-5.4) M/uL Hgb (12.0-16.0) g/dL Hct (37-47) % MCV (80-100) fL MCH (25-34) pg MCHC (32-36) g/dL RDW Std Deviation (36.4-46.3) fL RDW Coeff of Arlene (11.5-14.5) % Plt Count (130-400) K/uL MPV (7.4-10.4) fL Immature Gran % (Auto) % Neut % (Auto) % Lymph % (Auto) % Luce % (Auto) % Eos % (Auto) % Baso % (Auto) % Immature Gran # (Auto) (0.00-0.02) K/uL Neut # (Auto) (1.4-6.5) K/uL Lymph # (Auto) (1.2-3.4) K/uL Luce # (Auto) (0.11-0.59) K/uL Eos # (Auto) (0-0.5) K/uL Baso # (Auto) (0-0.2) K/uL Sodium (136-145) mmol/L Potassium (3.5-5.1) mmol/L Chloride (98-107) mmol/L Carbon Dioxide (21-32) mmol/L Anion Gap (3-11) BUN (7-18) mg/dl Creatinine (0.6-1.2) mg/dl Est Cr Clr Drug Dosing ml/min Est GFR ( Amer) Est GFR (Non-Af Amer) BUN/Creatinine Ratio (10-20) Glucose (70-99) mg/dl Lactate (0.4-2.0) mmol/L Calcium (8.5-10.1) mg/dl Total Bilirubin (0.2-1) mg/dl Direct Bilirubin (0-0.2) mg/dl AST (15-37) U/L ALT (12-78) U/L Alkaline Phosphatase (45-117) U/L Total Protein (6.4-8.2) gm/dl Albumin (3.4-5.0) gm/dl Lipase (73-393) U/L Urine Color Yellow Urine Appearance Cloudy A (Clear) Urine pH 5.5 (4.5-7.5) Ur Specific [place] 1.011 (1.000-1.030) Urine Protein 1+ H (Negative) Urine Glucose (UA) Negative (Negative) Urine Ketones Negative (Negative) Urine Blood 1+ H (Negative) Urine Nitrite Positive A (Negative) Urine Bilirubin Negative (Negative) Urine Urobilinogen Negative (Negative) Ur Leukocyte Esterase 3+ H (Negative) Urine WBC (Auto) >30 H (0-5) /hpf Urine RBC (Auto) 0-4 (0-4) /hpf U Hyaline Cast (Auto) 0 (0-5) /lpf U Epithel Cells (Auto) 0-5 (0-5) /lpf Urine Bacteria (Auto) 1+ H (Negative) Urine Test Negative (Negative) Administered Medications Discontinued Medications Sodium Chloride (Nss 1000ml) 1,000 mls @ 999 mls/hr IV .Q1H1M ONE Stop: 09/22/19 05:44 Last Infusion: 09/22/19 05:57 Dose: 0 mls/hr Documented by: [id number] Admin: 09/22/19 04:55 Dose: 999 mls/hr Documented by: [id number] Ketorolac Tromethamine (Toradol) 15 mg IV NOW STA Stop: 09/22/19 04:45 Last Admin: 09/22/19 04:55 Dose: 15 mg Documented by: [id number] Discharge Plan Visit Data Chief Complaint: Kidney Stone Stated Complaint: L SIDE PAIN,CHILLS,NAUSEA,BURNING/URNIATION ED Provider: Romel Reyes Discharge Problem: Pyelonephritis, Hydronephrosis, left Forms Stand Alone Forms: [employer] Prescriptions Prescriptions: No Action acetaminophen [Tylenol] 325 mg Tablet 650 mg PO DIRECTED RF: 0 tamsulosin 0.4 mg Capsule 0.4 mg PO QAM Qty: 30 RF: 0 ondansetron HCl [Zofran] 4 mg tablet 4 mg PO Q8H PRN (Reason: nausea and vomiting) Qty: 4 RF: 0
[2019-09-22 05:02] LABS: Basophils # (auto) 0.02 K/uL (0-0.2); Basophils % (auto) 0.2 %; Eosinophils # (auto) 0.02 K/uL (0-0.5); Eosinophils % (auto) 0.2 %; Hematocrit (blood only) 41.7 % (37-47); Hemoglobin 13.7 g/dL (12.0-16.0); Immature Granulocytes # (auto) 0.02 K/uL (0.00-0.02); Immature Granulocytes % (auto) 0.2 %; Lymphocytes # (auto) 1.25 K/uL (1.2-3.4); Lymphocytes % (auto) 9.9 %; Mean Corpuscular Hemoglobin 29.2 pg (25-34); Mean Corpuscular Hgb Conc 32.9 g/dL (32-36); Mean Corpuscular Volume 88.9 fL (80-100); Mean Platelet Volume 10.6 fL (7.4-10.4); Monocytes # (auto) 0.83 K/uL (0.11-0.59); Monocytes % (auto) 6.5 %; Neutrophils # (auto) 10.54 K/uL (1.4-6.5); Platelet Count 258 K/uL (130-400); RDW Coefficient of Variation 14.4 % (11.5-14.5); RDW Standard Deviation 46.6 fL (36.4-46.3); Red Blood Count 4.69 M/uL (4.2-5.4); White Blood Count 12.68 K/uL (4.8-10.8)
[2019-09-22 05:14] LABS: Pregnancy Test, Urine Negative (Negative)
[2019-09-22 05:18] LABS: Appearance Urine Cloudy (Clear); Bacteria Urine Automated 1+ (Negative); Bilirubin Urine Negative (Negative); Blood Urine 1+ (Negative); Cast Urine Automated 0 /lpf (0-5); Color Urine Yellow; Epithelial Cell Urine Auto 0-5 /lpf (0-5); Glucose Urine UA Negative (Negative); Ketones Urine Negative (Negative); Leukocyte Esterase Urine 3+ (Negative); Nitrite Urine Positive (Negative); Protein Urine 1+ (Negative); RBC Urine Automated 0-4 /hpf (0-4); Specific Gravity Urine 1.011 (1.000-1.030); Urobilinogen Urine Negative (Negative); WBC Urine Automated >30 /hpf (0-5); pH Urine 5.5 (4.5-7.5)
[2019-09-22 05:20] LABS: Albumin Level 3.8 gm/dl (3.4-5.0); BUN Creatinine Ratio 16.2 (10-20); Bilirubin Direct 0.4 mg/dl (0-0.2); Calcium 9.6 mg/dl (8.5-10.1); Creatinine Clr Calc Pharmacy 86.3 ml/min; Est GFR (African American) 101.5; Est GFR (Non-African American) 87.5; Potassium 3.6 mmol/L (3.5-5.1)
[2019-09-22 05:22] LABS: Bilirubin,Total 0.9 mg/dl (0.2-1); Total Protein 7.9 gm/dl (6.4-8.2)
[2019-09-22] MEDS ORDERED: PIPERACILL/TAZOBAC CONSULT ACTIVE PRN ×2 (06:00→08:56)
[2019-09-22] MEDS ORDERED: PIPERACILLIN/TAZOBACTAM 4.5 GM/120 ML BAG IV ONE (06:00)
[2019-09-22] MEDS ORDERED: cloNIDine HCL 0.1 MG TAB PO ONE (06:01)
--- NOTE | 2019-09-22 06:25 | History & Physical Report ---
Date of Service September 22, 2019 Assessment & Plan (1) Sepsis: Secondary to complicated UTI secondary to persistent obstructive uropathy Failed outpatient treatment Situational hypertension Transaminitis, ? Secondary to Bactrim Hyperglycemia secondary to prediabetes, globin A1c of 5.14 August 2019 Medical telemetry Cultures, Azactam Urology consult Re: Persistent obstructive uropathy causing sepsis N.p.o. until patient seen by urology in anticipation of procedure Analgesia Follow LFTs, liver ultrasound for progression DVT prophylaxis per Lovenox subcu Full code Text document was generated using [employer] voice recognition software. It may contain grammatical or spelling errors. Kindly contact undersigned for clarification of any documentation item in question. ADDENDUM : Case discussed with [facility] urologist on-call, Dr. Robles. She requests consulting [facility] [place] Urology for patient's obstructive uropathy due to constraints of clinic schedule today. History of Present Illness Chief Complaint: Flank pain Primary Care Provider: Elise Zhang MD History obtained from patient and records. Medical history significant for recurrent nephrolithiasis. Recent confinement 2 weeks ago for complicated UTI secondary to left ureteral calculus. Although seen by urology inpatient, no urologic intervention. Patient discharged on Bactrim and Flomax course. No stone passage at home. 2 days ago patient noted achy left-sided flank pain with nausea similar to kidney stone pain, chills. No chest pain, no S OB. No hematuria. At the ER, patient received Zosyn for complicated UTI. 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 Allergies Allergy/AdvReac Type Severity Reaction Status Date / Time hydromorphone [From Dilaudid] Allergy Severe hallucinati Verified 09/22/19 04:49 ons morphine Allergy Severe Anxiety Verified 09/22/19 04:49 caffeine Allergy Intermediate Hives Verified 09/22/19 04:49 ciprofloxacin Allergy Intermediate Hives Verified 09/22/19 04:49 codeine Allergy Intermediate muscle Verified 09/22/19 04:49 spasms ibuprofen Allergy Intermediate Palpitation Verified 09/22/19 04:49 s acetaminophen [From Percocet] Allergy Mild diaphoretic Verified 09/22/19 04:49 ceftriaxone Allergy Mild rash Verified 09/22/19 04:49 oxycodone [From Percocet] Allergy Mild diaphoretic Verified 09/22/19 04:49 propoxyphene Allergy Mild diaphoresis Verified 09/22/19 04:49 [From Darvocet-N 100] Home Medications Home Medications Medication Instructions Recorded Confirmed Type acetaminophen [Tylenol] 650 mg PO DIRECTED 09/04/19 09/22/19 History ondansetron HCl [Zofran] 4 mg PO Q8H PRN #4 tab 09/06/19 09/22/19 Rx tamsulosin 0.4 mg PO QAM #30 cap 09/06/19 09/22/19 Rx Past Med/Surg History Social History Preferred Language: Portuguese Beliefs That Will Affect Care: None Current Living Situation: Alone Feels Safe at Home: Yes Smoking Status: Never smoker Second Hand Exposure: No ; Hx Alcohol Use: Yes Hx Substance Use: No Review of Systems Review of Systems: As per HPI, all 10 systems reviewed, all other ROS negative Physical Exam Physical Exam: GENERAL: Comfortable, slightly anxious, obese, no respiratory distress SKIN: Normal color, warm HEENT: Bespectacled, pink palpebral conjunctivae, no ptosis, dry buccal mucosa NECK : Supple, short neck, no tenderness CHEST : CTA, no tenderness HEART : Tachycardic , no obvious murmurs ABDOMEN: Some distention, nontender BACK : Minimal left flank tenderness EXTREMITIES : No LE swelling/tenderness, no other conspicuous deformities noted NEUROLOGIC : Coherent, no facial asymmetry, no other gross focality Results & Data Results & Data ([facility]) Vital Signs (Past 12 Hours) Vital Signs Temp Pulse Pulse Resp BP BP Pulse Ox 09/22/19 06:05 100 H 20 126/82 100 09/22/19 04:24 37 C 105 H 18 160/87 H 95 Laboratory Results Laboratory Results WBC 12.68 K/uL (4.8-10.8) H 09/22/19 04:50 RBC 4.69 M/uL (4.2-5.4) 09/22/19 04:50 Hgb 13.7 g/dL (12.0-16.0) 09/22/19 04:50 Hct 41.7 % (37-47) 09/22/19 04:50 MCV 88.9 fL (80-100) 09/22/19 04:50 MCH 29.2 pg (25-34) 09/22/19 04:50 MCHC 32.9 g/dL (32-36) 09/22/19 04:50 RDW Std Deviation 46.6 fL (36.4-46.3) H 09/22/19 04:50 RDW Coeff of Arlene 14.4 % (11.5-14.5) 09/22/19 04:50 Plt Count 258 K/uL (130-400) 09/22/19 04:50 MPV 10.6 fL (7.4-10.4) H 09/22/19 04:50 Immature Gran % (Auto) 0.2 % 09/22/19 04:50 Neut % (Auto) 83.0 % 09/22/19 04:50 Lymph % (Auto) 9.9 % 09/22/19 04:50 Scott % (Auto) 6.5 % 09/22/19 04:50 Eos % (Auto) 0.2 % 09/22/19 04:50 Baso % (Auto) 0.2 % 09/22/19 04:50 Immature Gran # (Auto) 0.02 K/uL (0.00-0.02) 09/22/19 04:50 Neut # (Auto) 10.54 K/uL (1.4-6.5) H 09/22/19 04:50 Lymph # (Auto) 1.25 K/uL (1.2-3.4) 09/22/19 04:50 Scott # (Auto) 0.83 K/uL (0.11-0.59) H 09/22/19 04:50 Eos # (Auto) 0.02 K/uL (0-0.5) 09/22/19 04:50 Baso # (Auto) 0.02 K/uL (0-0.2) 09/22/19 04:50 Sodium 130 mmol/L (136-145) L 09/22/19 04:50 Potassium 3.6 mmol/L (3.5-5.1) 09/22/19 04:50 Chloride 106 mmol/L (98-107) 09/22/19 04:50 Carbon Dioxide 27 mmol/L (21-32) 09/22/19 04:50 Anion Gap -3.0 (3-11) L 09/22/19 04:50 BUN 12 mg/dl (7-18) 09/22/19 04:50 Creatinine 0.77 mg/dl (0.6-1.2) 09/22/19 04:50 Est Cr Clr Drug Dosing 86.3 ml/min 09/22/19 04:50 Est GFR ( Amer) 101.5 09/22/19 04:50 Est GFR (Non-Af Amer) 87.5 09/22/19 04:50 BUN/Creatinine Ratio 16.2 (10-20) 09/22/19 04:50 Glucose 137 mg/dl (70-99) H 09/22/19 04:50 Lactate 1.0 mmol/L (0.4-2.0) 09/22/19 04:50 Calcium 9.6 mg/dl (8.5-10.1) 09/22/19 04:50 Magnesium 1.8 mg/dl (1.8-2.4) 09/22/19 04:50 Total Bilirubin 0.9 mg/dl (0.2-1) 09/22/19 04:50 Direct Bilirubin 0.4 mg/dl (0-0.2) H 09/22/19 04:50 AST 53 U/L (15-37) H 09/22/19 04:50 ALT 151 U/L (12-78) H 09/22/19 04:50 Alkaline Phosphatase 160 U/L (45-117) H 09/22/19 04:50 Total Protein 7.9 gm/dl (6.4-8.2) 09/22/19 04:50 Albumin 3.8 gm/dl (3.4-5.0) 09/22/19 04:50 Lipase 91 U/L (73-393) 09/22/19 04:50 Urine Color Yellow 09/22/19 04:50 Urine Appearance Cloudy (Clear) A 09/22/19 04:50 Urine pH 5.5 (4.5-7.5) 09/22/19 04:50 Ur Specific [place] 1.011 (1.000-1.030) 09/22/19 04:50 Urine Protein 1+ (Negative) H 09/22/19 04:50 Urine Glucose (UA) Negative (Negative) 09/22/19 04:50 Urine Ketones Negative (Negative) 09/22/19 04:50 Urine Blood 1+ (Negative) H 09/22/19 04:50 Urine Nitrite Positive (Negative) A 09/22/19 04:50 Urine Bilirubin Negative (Negative) 09/22/19 04:50 Urine Urobilinogen Negative (Negative) 09/22/19 04:50 Ur Leukocyte Esterase 3+ (Negative) H 09/22/19 04:50 Urine WBC (Auto) >30 /hpf (0-5) H 09/22/19 04:50 Urine RBC (Auto) 0-4 /hpf (0-4) 09/22/19 04:50 U Hyaline Cast (Auto) 0 /lpf (0-5) 09/22/19 04:50 U Epithel Cells (Auto) 0-5 /lpf (0-5) 09/22/19 04:50 Urine Bacteria (Auto) 1+ (Negative) H 09/22/19 04:50 Urine Test Negative (Negative) 09/22/19 04:50 Diagnostic Findings Renal ultrasound initial read. Normal right kidney. Left kidney measuring 2.2 cm in length with r moderate left hydronephrosis and left ureteral dilatation up to 9 mm. Questionable urothelial thickening concerning for left upper collecting system infection.
[2019-09-22] MEDS ORDERED: TRAMADOL HCL 50 MG TABLET PO PRN (07:12)
[2019-09-22] MEDS ORDERED: PROMETHAZINE HCL 12.5 MG in SODIUM CHLORIDE 0.9% 50 ML IV PRN (07:12)
[2019-09-22] MEDS ORDERED: LORazepam 0.25 MG/0.5 ML VIAL IV PRN (07:12)
[2019-09-22] MEDS ORDERED: ACETAMINOPHEN 325 MG TAB PO PRN (07:12)
[2019-09-22] MEDS ORDERED: MoRPHine SULFATE 2 MG/ML CARP IV PRN (07:25)
--- NOTE | 2019-09-22 07:29 | Ultrasound Report ---
US renal/blad retro comp HISTORY: 53 years-old Female persistent left flank pain x 2 weeks acute left flank pain for 2 weeks COMPARISON: CT abdomen and pelvis 09/05/2019 TECHNIQUE: Multiple real-time sonographic images of the kidneys and urinary bladder were obtained ass essing grayscale appearance and color flow FINDINGS: Study is mildly limited secondary to patient body habitus. Right kidney measures 10.5 x 4.6 x 5.2 cm and demonstrates no hydronephrosis. There is mild diffuse c ortical thinning throughout the right kidney. There are a few scattered punctate nonobstructing calcu li of the right kidney redemonstrated. The left kidney measures 12.2 x 8.1 x 5.9 cm. There is moderate left-sided hydroureteronephrosis. Ill -defined increased echogenicity of the left inferior collecting system is suggestive of debris. Mild associated urothelial thickening on the left. The distal left ureter is obscured by bowel gas. The pr eviously noted punctate left renal calculi better seen on comparison CT. Urinary bladder is unremarkable. Bilateral ureteral jets are noted 2 right greater than left. IMPRESSION: 1. Persistent moderate left-sided hydroureteronephrosis. 2. Left-sided urothelial thickening may be reactive or represent associated infectious pyelitis. Josefina elate with urinalysis. 3. Nonobstructing right nephrolithiasis. ACT 112: Negative or not required by law. The above report was generated using voice recognition software. It may contain grammatical, syntax o r spelling errors. Electronically signed by: Mich Moreno M.D. 09/22/2019 7:28 AM
--- NOTE | 2019-09-22 07:35 | XRay Report ---
XR chest 1V portable HISTORY: 53 years-old Female htn hypertension COMPARISON: Chest radiograph 09/05/2019 TECHNIQUE: Portable AP view of the chest FINDINGS: Cardiomediastinal and hilar silhouettes are within normal limits. No pneumothorax, pleural effusion, airspace consolidation or overt pulmonary edema. Degenerative changes of the shoulders and spine. The bones appear grossly intact. Surgical clips project over the abdominal right upper quadrant. IMPRESSION: No acute process. ACT 112: Negative or not required by law. The above report was generated using voice recognition software. It may contain grammatical, syntax o r spelling errors. Electronically signed by: Mich Moreno M.D. 09/22/2019 7:33 AM
[2019-09-22] MEDS ORDERED: [UNRECOGNIZED DRUG - REMARK] SCH (09:00)
[2019-09-22] MEDS ORDERED: [UNRECOGNIZED DRUG - REMARK] PRN (09:00)
[2019-09-22] MEDS ORDERED: ENOXAPARIN INJ 40 MG/0.4 ML SYR SQ SCH (09:00)
[2019-09-22] MEDS ORDERED: AZTREONAM CONSULT ACTIVE PRN (09:00)
[2019-09-22] MEDS: TAMSULOSIN HCL 0.4 MG CAP PO SCH (09:39)
[2019-09-22] MEDS: POTASSIUM CHLORIDE 40 MEQ in SODIUM CHLORIDE 0.9% 1000ML 1,000 ML IV SCH ×2 (09:39→23:33)
--- NOTE | 2019-09-22 10:05 | Hospitalist Progress Note ---
Date of Service September 22, 2019 Assessment & Plan Admission and Anticipated Discharge Date Admission Date: September 22, 2019 Subjective Attending addendum: Patient admitted with complicated UTI/with concern for left hydronephrosis, possible left ureteric calculus Renal ultrasound: 1. Persistent moderate left-sided hydroureteronephrosis. 2. Left-sided urothelial thickening may be reactive or represent associated infectious pyelitis/pyelonephritis No evidence of sepsis: Patient is on IV Zosyn Received call from [facility] urology -Patient does not appear to be requiring any urgent ureteric stent Normal renal function, does not have any fever Recommends continue with medical management/antibiotic treatment Given current viral pandemic, patient is not seen in hospital unless for e mergency urology team would like to see patient in clinic via telephone/video follow-up. N.p.o. discontinued Ordered for diet Continue IV Zosyn until urine culture is available Urology consult canceled as patient will not be seen by urology team in hospital. Frances Limno MD Results & Data Results & Data ([facility]) Vital Signs (Past 12 Hours) Vital Signs Temp Pulse Pulse Resp BP BP Pulse Ox 09/22/19 07:37 37.4 C 93 H 18 124/83 99 09/22/19 07:16 93 H 09/22/19 06:05 100 H 20 126/82 100 09/22/19 04:24 37 C 105 H 18 160/87 H 95
[2019-09-22] MEDS ORDERED: AZTREONAM 1,000 MG in DEXTROSE 5% 100 ML IV SCH (10:30)
[2019-09-22] MEDS ORDERED: ONDANSETRON INJ 2 MG/ML 2 ML VIAL IV PRN (10:54)
--- NOTE | 2019-09-22 11:12 | Hospitalist Progress Note ---
Date of Service September 22, 2019 Assessment & Plan (1) Complicated UTI (urinary tract infection): Complicated UTI secondary to left-sided 3 mm ureteric stone (noted on previous CT abdomen pelvis) Associated with pyelonephritis/left-sided hydro-utero nephrosis No evidence of sepsis: Normal lactic acid, vitals stable Ordered for urine culture Continue broad-spectrum antibiotic with IV Zosyn Plan of care discussed with urology, as outlined on previous note No indication for emergent urologic procedure/ureteric stent check KUB xray to assess for left sided ureteric stone Continue broad-spectrum antibiotic, follow urine culture antibiotic will be adjusted accordingly Hyponatremia: Secondary to poor p.o. intake, patient mentioned of ongoing nausea poor appetite last 2 weeks Continue IV fluids with normal saline Renal function within normal limit Repeat BMP in a.m. Elevated transaminase: No right upper quadrant pain or discomfort Patient underwent cholecystectomy at age 16 Possible mild transaminitis secondary to medications: Was on Bactrim Patient also mentioned she has been taking Tylenol almost every day for fever, pain Take almost 3 g of Tylenol [id number] 2 days consecutively prior admission Ordered for Tylenol level DC PRN Tylenol, will use NSAIDs as needed for pain and fever Follow LFTs Continue IV fluids Hold off on liver ultrasound scan for now DVT prophylaxis: Low risk, ordered for SCD and teds Patient is encouraged to ambulate Disposition: Patient will need continued hospital stay for IV antibiotics, Plan for discharge home in next 24-48 hours once urine culture available, patient is afebrile for 24 hrs , improvement of left flank pain Admission and Anticipated Discharge Date Admission Date: September 22, 2019 Subjective Patient complains of soreness on left flank, Had low-grade fever this morning, no chills continues to have urinary symptoms with dysuria/increased frequency Worried about her ongoing symptoms, No complaint of right sided abdominal pain, feels nauseous, no vomiting No cough, no shortness of breath, no dyspnea on exertion Review of Systems Review of Systems: All systems reviewed & are unremarkable except as noted in HPI & below Constitutional: + fever, + fatigue, + malaise, + weakness and + anorexia; no chills, no sweats and no body aches Respiratory: no cough, no change in sputum, no dyspnea, no sputum production and no wheezing Cardiovascular: no chest pain, no palpitations and no syncope Genitourinary: + dysuria, + urinary frequency, + urinary urgency and + flank pain (Left-sided) Physical Exam Constitutional: WD/WN, vitals as above + ill appearing (Anxious) Eyes: PERRL, conjunctivae normal, anicteric sclerae ENMT: external ear and nose normal, oropharynx normal Neck: trachea midline, no thyromegaly Respiratory: normal respiratory effort, lungs clear to auscultation Cardiovascular: RRR, no murmur, no edema Gastrointestinal (Abdomen): Inspection/Auscultation: normal bowel sounds Percussion/Palpation: abdomen soft; abdomen nontender and no guarding Musculoskeletal: no cyanosis or clubbing, extremities motor strength 5/5 Skin: no rashes, warm and dry Neurologic: PERRL, EOMI, accommodation nl, no face palsy, no dysarthria Psychiatric: A+Ox3, euthymic affect Genitourinary: + CVA tenderness (Left-sided) Results & Data Results & Data ([facility]) Vital Signs (Past 12 Hours) Vital Signs Temp Pulse Pulse Resp BP BP Pulse Ox 09/22/19 10:04 39 C H 09/22/19 07:37 37.4 C 93 H 18 124/83 99 09/22/19 07:16 93 H 09/22/19 06:05 100 H 20 126/82 100 09/22/19 04:24 37 C 105 H 18 160/87 H 95 Diagnostic Findings Renal ultrasound : . Normal right kidney. Left kidney measuring 2.2 cm in length with r moderate left hydronephrosis and left ureteral dilatation up to 9 mm. Questionable urothelial thickening concerning for left upper collecting system infection. Medications Administered Current Inpatient Medications Potassium Chloride 40 meq/ (Sodium Chloride) 1,020 mls @ 75 mls/hr IV .[id number] [facility] Stop: 10/22/19 07:29 Last Admin: 09/22/19 09:39 Dose: 75 mls/hr Documented by: Promethazine HCl 12.5 mg/ (Sodium Chloride) 50.5 mls @ 202 mls/hr IV Q6H PRN PRN Reason: Nausea And Vomiting Stop: 10/22/19 07:11 Lorazepam (Ativan) 0.25 mg in 0.5 mls @ 0.5 mls/min IV Q4H PRN PRN Reason: Anxiety Stop: 10/22/19 07:11 Piperacillin Sod/Tazobactam (Sod 4.5 gm/ Dextrose) 120 mls @ 30 mls/hr IV Q8H [facility]; Protocol Stop: 10/02/19 11:59 Miscellaneous Information (Consult) 1 ea N/A UD PRN PRN Reason: Consult Stop: 10/22/19 08:55 Ondansetron HCl (Zofran) 4 mg IV Q4H PRN PRN Reason: Nausea Stop: 10/22/19 10:53 Tamsulosin HCl (Flomax) 0.4 mg PO QAM CHRIS Stop: 10/22/19 08:59 Last Admin: 09/22/19 09:39 Dose: 0.4 mg Documented by: Tramadol HCl (Ultram) 25 - 50 mg PO Q4H PRN PRN Reason: Pain Stop: 10/22/19 07:11
[2019-09-22] MEDS: PIPERACILLIN/TAZOBACTAM 4.5 GM in DEXTROSE 5% 100 ML IV SCH ×2 (11:44→21:22)
--- NOTE | 2019-09-22 13:43 | XRay Report ---
KUB HISTORY: Follow up study in a patient with a left ureteral calculus renal stone COMPARISON: CT abdomen pelvis 09/05/2019 FINDINGS: The bowel gas pattern is non-obstructive. There is no organomegaly. Renal shadows are part ially obscured by bowel gas with known punctate renal calculi not identified. The previously describe d 3 mm calculus of the distal left ureter is also not definitively seen. Cholecystectomy. No pneumope ritoneum or pneumatosis. No fracture. IMPRESSION: Nonvisualization of the previously described 3 mm distal left ureteral calculus. ACT 112: Negative or not required by law. The above report was generated using voice recognition software. It may contain grammatical, syntax o r spelling errors. Electronically signed by: Mich Moreno M.D. 09/22/2019 1:41 PM
--- NOTE | 2019-09-22 14:36 | Electrocardiogram Report ---
Test Reason : Blood Pressure : / mmHG Vent. Rate : 093 BPM Atrial Rate : 093 BPM P-R Int : 172 ms QRS Dur : 086 ms QT Int : 378 ms P-R-T Axes : 044 -04 031 degrees QTc Int : 469 ms Normal sinus rhythm Minimal voltage criteria for LVH, may be normal variant Borderline ECG When compared with ECG of 22-SEP-2019 06:33, No significant change was found Confirmed by Herson Casanova ([id number]) on 09/22/2019 2:35:50 PM Referred By: REFERRED SELF Confirmed By:Herson Casanova
[2019-09-22] MEDS: KETOROLAC TROMETHAMINE 15 MG/ML VIAL IV PRN (21:24)
[2019-09-23] MEDS: PIPERACILLIN/TAZOBACTAM 4.5 GM in DEXTROSE 5% 100 ML IV SCH ×3 (04:48→20:05)
[2019-09-23 06:55] LABS: Basophils # (auto) 0.02 K/uL (0-0.2); Basophils % (auto) 0.2 %; Eosinophils # (auto) 0.12 K/uL (0-0.5); Eosinophils % (auto) 1.2 %; Hematocrit (blood only) 37.6 % (37-47); Hemoglobin 11.6 g/dL (12.0-16.0); Immature Granulocytes # (auto) 0.02 K/uL (0.00-0.02); Immature Granulocytes % (auto) 0.2 %; Lymphocytes # (auto) 1.33 K/uL (1.2-3.4); Lymphocytes % (auto) 13.7 %; Mean Corpuscular Hemoglobin 27.9 pg (25-34); Mean Corpuscular Hgb Conc 30.9 g/dL (32-36); Mean Corpuscular Volume 90.4 fL (80-100); Mean Platelet Volume 10.9 fL (7.4-10.4); Monocytes # (auto) 1.03 K/uL (0.11-0.59); Monocytes % (auto) 10.6 %; Neutrophils # (auto) 7.22 K/uL (1.4-6.5); Neutrophils % (auto) 74.1 %; Platelet Count 212 K/uL (130-400); RDW Coefficient of Variation 14.7 % (11.5-14.5); Red Blood Count 4.16 M/uL (4.2-5.4); White Blood Count 9.74 K/uL (4.8-10.8)
[2019-09-23 07:24] LABS: BUN Creatinine Ratio 13.7 (10-20); Calcium 8.7 mg/dl (8.5-10.1); Creatinine Clr Calc Pharmacy 86.3 ml/min; Est GFR (African American) 101.5; Est GFR (Non-African American) 87.5; Potassium 3.8 mmol/L (3.5-5.1)
[2019-09-23 07:29] LABS: Albumin Globulin Ratio 0.8 (0.9-2); Bilirubin,Total 2.2 mg/dl (0.2-1)
[2019-09-23] MEDS: TAMSULOSIN HCL 0.4 MG CAP PO SCH (08:20)
[2019-09-23] MEDS: KETOROLAC TROMETHAMINE 15 MG/ML VIAL IV PRN ×2 (08:26→14:41)
[2019-09-23] MEDS: POTASSIUM CHLORIDE 40 MEQ in SODIUM CHLORIDE 0.9% 1000ML 1,000 ML IV SCH (11:48)
--- NOTE | 2019-09-23 12:44 | Hospitalist Progress Note ---
Date of Service September 23, 2019 Assessment & Plan (1) Complicated UTI (urinary tract infection): Complicated UTI secondary to left-sided 3 mm ureteric stone (noted on previous CT abdomen pelvis) Associated with pyelonephritis/left-sided hydro-utero nephrosis No evidence of sepsis: Normal lactic acid, vitals stable urine culture : E coli , sensitivity pending Continue broad-spectrum antibiotic with IV Zosyn Plan of care discussed with urology, as outlined on previous note No indication for emergent urologic procedure/ureteric stent KUB xray to shows no evidence of left sided ureteric stone , noted in CT abdomen on 09/05/19 Hyponatremia: Secondary to poor p.o. intake, patient mentioned of ongoing nausea poor appetite last 2 weeks Continue IV fluids with normal saline Renal function within normal limit Repeat BMP in a.m. Elevated transaminase: No right upper quadrant pain or discomfort no nausea or vomiting LFT's continues to improve with IVF Patient underwent cholecystectomy at age 16 Possible mild transaminitis secondary to medications: Was on Bactrim Tylenol level < 2 no evidence of tylenol toxicity DVT prophylaxis: Low risk, ordered for SCD and teds Patient is encouraged to ambulate Disposition: possible discharge home tomorrow Admission and Anticipated Discharge Date Admission Date: September 22, 2019 Subjective complains of dysuria , increased frequency no fever or chills left flank pain improved no nausea or vomiting Physical Exam Constitutional: WD/WN, vitals as above Eyes: PERRL, conjunctivae normal, anicteric sclerae ENMT: external ear and nose normal, oropharynx normal Neck: trachea midline, no thyromegaly Respiratory: normal respiratory effort, lungs clear to auscultation Cardiovascular: RRR, no murmur, no edema Gastrointestinal (Abdomen): Inspection/Auscultation: normal bowel sounds Percussion/Palpation: abdomen soft; abdomen nontender and no guarding Musculoskeletal: no cyanosis or clubbing, extremities motor strength 5/5 Skin: no rashes, warm and dry Neurologic: PERRL, EOMI, accommodation nl, no face palsy, no dysarthria Psychiatric: A+Ox3, euthymic affect Results & Data Results & Data ([facility]) Vital Signs (Past 12 Hours) Vital Signs Temp Pulse Resp BP Pulse Ox 09/23/19 07:20 36.8 C 71 18 110/73 96
[2019-09-23] MEDS ORDERED: PHENAZOPYRIDINE HCL 200 MG TAB PO STA (13:15)
[2019-09-23] MEDS: PHENAZOPYRIDINE HCL 200 MG TAB PO SCH (16:56)
[2019-09-23] MEDS ORDERED: PHENAZOPYRIDINE HCL 200 MG TAB PO SCH (21:00)
[2019-09-24] MEDS: POTASSIUM CHLORIDE 40 MEQ in SODIUM CHLORIDE 0.9% 1000ML 1,000 ML IV SCH ×2 (01:33→14:32)
[2019-09-24] MEDS: PIPERACILLIN/TAZOBACTAM 4.5 GM in DEXTROSE 5% 100 ML IV SCH (04:04)
[2019-09-24 08:04] LABS: Albumin Level 2.8 gm/dl (3.4-5.0); Bilirubin Direct 0.3 mg/dl (0-0.2); Bilirubin,Total 0.7 mg/dl (0.2-1); Total Protein 6.3 gm/dl (6.4-8.2)
[2019-09-24] MEDS: PHENAZOPYRIDINE HCL 200 MG TAB PO SCH ×3 (08:10→16:54)
[2019-09-24] MEDS: TAMSULOSIN HCL 0.4 MG CAP PO SCH (08:10)
[2019-09-24] MEDS: cephALEXin 500 MG CAP PO SCH ×3 (11:00→16:53)
[2019-09-24] MEDS: LACTOBACILLUS ACIDOPHILUS (FLORANEX) TAB PO SCH ×3 (11:00→16:54)
--- NOTE | 2019-09-24 18:13 | Discharge Summary ---
Date of Service September 24, 2019 Admission HPI Per Admitting Provider History obtained from patient and records. Medical history significant for recurrent nephrolithiasis. Recent confinement 2 weeks ago for complicated UTI secondary to left ureteral calculus. Although seen by urology inpatient, no urologic intervention. Patient discharged on Bactrim and Flomax course. No stone passage at home. 2 days ago patient noted achy left-sided flank pain with nausea similar to kidney stone pain, chills. No chest pain, no S OB. No hematuria. At the ER, patient received Zosyn for complicated UTI. 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 Principal Diagnosis Complicated UTI Discharge Exam Constitutional WD/WN, vitals as above + ill appearing (Anxious) Eyes PERRL, conjunctivae normal, anicteric sclerae ENMT external ear and nose normal, oropharynx normal Neck trachea midline, no thyromegaly Respiratory normal respiratory effort, lungs clear to auscultation Cardiovascular RRR, no murmur, no edema Gastrointestinal (Abdomen) Inspection/Auscultation: normal bowel sounds Percussion/Palpation: abdomen soft; abdomen nontender and no guarding Musculoskeletal no cyanosis or clubbing, extremities motor strength 5/5 Skin no rashes, warm and dry Neurologic PERRL, EOMI, accommodation nl, no face palsy, no dysarthria Psychiatric A+Ox3, euthymic affect Genitourinary + CVA tenderness (Left-sided) Discharge Data Allergies Allergy/AdvReac Type Severity Reaction Status Date / Time hydromorphone [From Dilaudid] Allergy Severe hallucinati Verified 09/22/19 04:49 ons morphine Allergy Severe Anxiety Verified 09/22/19 04:49 caffeine Allergy Intermediate Hives Verified 09/22/19 04:49 ciprofloxacin Allergy Intermediate Hives Verified 09/22/19 04:49 codeine Allergy Intermediate muscle Verified 09/22/19 04:49 spasms ibuprofen Allergy Intermediate Palpitation Verified 09/22/19 04:49 s acetaminophen [From Percocet] Allergy Mild diaphoretic Verified 09/22/19 04:49 ceftriaxone Allergy Mild rash Verified 09/22/19 04:49 oxycodone [From Percocet] Allergy Mild diaphoretic Verified 09/22/19 04:49 propoxyphene Allergy Mild diaphoresis Verified 09/22/19 04:49 [From Darvocet-N 100] Consultations 09/22/19 06:00 ED Decision to Admit Stat Ordered Studies 09/22/19 04:44 US renal/blad retro comp Urgent Hospital Course (1) Complicated UTI (urinary tract infection): Complicated UTI secondary to left-sided 3 mm ureteric stone (noted on previous CT abdomen pelvis) Associated with pyelonephritis/left-sided hydro-utero nephrosis No evidence of sepsis: Normal lactic acid, vitals stable urine culture : E coli , Abx changed to PO Cephalexin per sensitivity complete 5 more days tx Plan of care discussed with urology, No indication for emergent urologic procedure/ureteric stent KUB xray to shows no evidence of left sided ureteric stone , Hyponatremia: resolved Secondary to poor p.o. intake, patient mentioned of ongoing nausea poor appetite last 2 weeks given IV fluids with normal saline Renal function within normal limit Elevated transaminase: No right upper quadrant pain or discomfort no nausea or vomiting LFT's continues to improve with IVF Patient underwent cholecystectomy at age 16 Possible mild transaminitis secondary to medications: Was on Bactrim Tylenol level < 2 no evidence of tylenol toxicity repeat LFT in a week DVT prophylaxis: Low risk, ordered for SCD and teds Patient is encouraged to ambulate Disposition: discharge home today Total Time Total Time Spent Total Time Spent (In Minutes): approx 35 mins Total Time Includes: Examination of the Patient, Discharge Planning and Medication Reconciliation Discharge Plan Discharge Items Patient Disposition: Home - Self-Care Reason For Visit: SEPSIS Discharge Diagnosis: COMPLICATED UTI Activity: Resume your previous activity Non-emergency contact: Primary Care Provider Call non-emergency contact if: you have any medication questions Follow-up/Referrals: Nilson Waggoner DO [Physician] - (call to schedule appointment in 2-3 weeks ) Elise Zhang MD [Primary Care Provider] - 09/30/19 12:20 pm Diet: Regular Ambulatory Orders: Hepatic Function (Liver) Panel (Routine) Timeframe: [id number] Location: Determined by Patient Ordered By: Frances Donohue Attending Provider Instructions: FOLLOW UP WITH UROLOGY IN 2-3 WEEKS Pending Studies at Discharge: Yes Studies:: LAB WORK : LIVER FUNCTION TEST ON 09/30/19 Stand-Alone Forms: My [facility], Work/School Release (Inpt), Smoking Cessation Medications and DC Order Prescriptions: New phenazopyridine [Pyridium] 200 mg Tablet 200 mg PO TID PRN (Reason: burning sensation with urination) Qty: 60 RF: 2 cephalexin 500 mg Capsule 500 mg PO QID 5 Days Qty: 20 RF: 0 Continued acetaminophen [Tylenol] 325 mg Tablet 650 mg PO DIRECTED RF: 0 tamsulosin 0.4 mg Capsule 0.4 mg PO QAM Qty: 30 RF: 0 ondansetron HCl [Zofran] 4 mg tablet 4 mg PO Q8H PRN (Reason: nausea and vomiting) Qty: 4 RF: 0 Discharge Orders: Discharge Order (Routine); Ordered 09/24/19 Ordered By: Frances Limon Admission Data Admit Date/Time: 09/22/19 06:27 Attending Provider: Frances Limon Admit Provider: Ranjit Zavala Primary Care Provider: Elise Zhang Other Providers: Ranjit Zavala
[2019-09-24] MEDS ORDERED: cephALEXin 500 MG CAP PO SCH (18:45)
[2019-09-24] MEDS ORDERED: PHENAZOPYRIDINE HCL 200 MG TAB PO SCH (18:45)
== END 2019-09-24 19:40 | disposition home or self-care (01) | DRG 690 ==
LOC: ED 04:21 → 2W 06:27

== ENCOUNTER 2023-12-20 05:08 | Inpatient (IN) ==
--- NOTE | 2023-12-20 05:26 | Emergency Department Note ---
History of Present Illness General Chief complaint: Flank Pain Stated complaint: KIDNEY STONE ISSUE Time Seen by Provider: 12/20/23 05:17 History of Present Illness Maximum Pain Intensity: 9 This is a 58-year-old female presenting to the emergency department for evaluation of left flank pain that began around midnight, roughly 5 hours prior to arrival. Patient states that she initially thought some of her pain and discomfort was from dinner, took Zofran, and went back to bed. Patient states that around 3 AM she was awoken with pain that she rates a 9/10. The pain is radiating into her left lower quadrant. She does have a history of multiple kidney stones over the past 40 years, and this feels identical to previous episodes. The patient has not had fevers or chills. No chest pain, chest tightness, or shortness of breath. Home Medications Medication Instructions Recorded Confirmed Type acetaminophen 325 mg tablet 650 mg PO DIRECTED 09/04/19 12/20/23 History (Tylenol) ondansetron HCl 4 mg tablet 4 mg PO Q8H PRN nausea and 09/06/19 12/20/23 Rx (Zofran) vomiting #4 tabs Allergies Allergy/AdvReac Type Severity Reaction Status Date / Time hydromorphone [From Dilaudid] Allergy Severe hallucinati Verified 09/22/19 04:49 ons morphine Allergy Severe Anxiety Verified 09/22/19 04:49 caffeine Allergy Intermediate Hives Verified 09/22/19 04:49 ciprofloxacin Allergy Intermediate Hives Verified 09/22/19 04:49 codeine Allergy Intermediate muscle Verified 09/22/19 04:49 spasms ibuprofen Allergy Intermediate Palpitation Verified 09/22/19 04:49 s acetaminophen [From Percocet] Allergy Mild diaphoretic Verified 09/22/19 04:49 ceftriaxone Allergy Mild rash Verified 09/22/19 04:49 oxycodone [From Percocet] Allergy Mild diaphoretic Verified 09/22/19 04:49 propoxyphene Allergy Mild diaphoresis Verified 09/22/19 04:49 [From Darvocet-N 100] nitrofurantoin Allergy Hives Verified 12/20/23 06:05 sulfamethoxazole Allergy Hives Verified 12/20/23 06:04 [From Bactrim] trimethoprim [From Bactrim] Allergy Hives Verified 12/20/23 06:04 Past Med/Surg History Problem List (Updated 12/20/23 @ 22:41 by Jb Cardona PA-C) Calculus of distal left ureter Complicated UTI (urinary tract infection) Sepsis Pyelonephritis (Acute) Hydronephrosis, left (Acute) Left ureteral calculus (Acute) UTI (urinary tract infection) (Acute) Hydronephrosis (Acute) Hypokalemia (Acute) Sepsis Medical History (Updated 12/20/23 @ 22:41 by Jb Cardona PA-C) Prediabetes Surgical History Hx of cholecystectomy History of appendectomy Family History Brother Bilateral kidney stones Social History Smoking Status: Former smoker Second Hand Exposure: No; Do You Dip or Chew Tobacco: No; Hx Alcohol Use: Yes Hx Substance Use: No Preferred Language: Kittitian Communication Ability: Effective Director Treasurer Required: No Beliefs That Will Affect Care: None Current Living Situation: Alone Feels Safe at Home: Yes Assistive Devices: None Review of Systems A total of 10 systems reviewed and were otherwise negative Physical Exam Vital Signs Vital Signs - 24 hr 12/20/23 05:13 12/20/23 06:00 Temperature 36.9 C Temperature Source Oral Pulse Rate 90 Pulse Rate [Finger] 86 Pulse Rhythm [Finger] Regular Pulse Strength [Finger] Normal Respiratory Rate 22 18 Respiratory Effort / Characteristics Non-Labored Spontaneous Respiratory Depth Normal Respiratory Pattern Regular Blood Pressure 162/94 H Blood Pressure [Right Arm] 130/81 Blood Pressure Mean 116 Blood Pressure Mean [Right Arm] 97 Blood Pressure Position [Right Arm] Lying Pulse Oximetry 97 93 Oxygen Delivery Method Room Air Room Air Sepsis Recent Fever Within 48 Hours No Sepsis New/Unexplained Change in Mental Status N/A Sepsis Action Taken by Nursing No Action Required VITALS: Vitals are noted on the nurse's note and reviewed by myself. Vital signs stable. GENERAL: Well-developed, well-nourished, white female, who is in no acute distress and resting comfortably. Patient is cooperative with the examination. HEAD: Normocephalic atraumatic. HEART: Regular rate and rhythm without murmurs gallops or rubs. LUNGS: Clear to auscultation bilaterally without wheezes, rales or rhonchi. No retractions or accessory muscle use. ABDOMEN: Positive normal bowel sounds x 4. Soft, nontender, without masses or organomegaly. No guarding or rebound tenderness. MUSCULOSKELETAL: No muscle atrophy, erythema, or edema noted. Full range of motion in all extremities. No tenderness to palpation. Normal gait. Strength 5/5 throughout. NEURO: Patient was alert and oriented to person place and time. CN II through XII grossly intact. Course Administered Medications Piperacillin Sod/Tazobactam (Sod 4.5 gm/ Dextrose) 100 mls @ 25 mls/hr IV Q8H CHRIS; Protocol Stop: 12/30/23 11:59 Last Admin: 12/20/23 19:56 Dose: 25 mls/hr Documented By: Infusion: 12/20/23 17:50 Dose: Infused Documented By: Admin: 12/20/23 13:52 Dose: 25 mls/hr Documented By: SLOANE Lactated Ringer's (Lr) 1,000 mls @ 500 mls/hr IV .Q2H ONE Stop: 12/20/23 22:59 Last Admin: 12/20/23 21:28 Dose: 500 mls/hr Documented By: BIANCA Lactobacillus Acidophilus (Advanced Probiotic 625 Mg Capsule) 1,250 mg PO DAILY [facility] Stop: 01/19/24 08:59 Last Admin: 12/20/23 13:52 Dose: 1,250 mg Documented By: SLOANE Tramadol HCl (Tramadol Hcl 50 Mg Tablet) 25 - 50 mg PO Q4H PRN PRN Reason: Pain Stop: 01/19/24 21:36 Last Admin: 12/20/23 22:18 Dose: 25 mg Documented By: BIANCA Discontinued Medications Diatrizoate Meglumine (Diatrizoate Meglumine 30% 100ml Vial) 100 ml INSTIL ONCE ONE Stop: 12/20/23 11:21 Last Admin: 12/20/23 11:20 Dose: 5 ml Documented By: [id number] Sodium Chloride (Nss) 1,000 mls @ 999 mls/hr IV .Q1H1M CHRIS Stop: 12/20/23 06:30 Last Infusion: 12/20/23 06:33 Dose: Infused Documented By: Admin: 12/20/23 05:32 Dose: 999 mls/hr Documented By: SVITLANA Piperacillin Sod/Tazobactam Sod (Zosyn) 4.5 gm in 100 mls @ 200 mls/hr IV NOW ONE Stop: 12/20/23 07:05 Last Infusion: 12/20/23 07:15 Dose: Infused Documented By: Admin: 12/20/23 06:44 Dose: 200 mls/hr Documented By: SVITLANA Sodium Chloride (Nss) 1,000 mls @ 60 mls/hr IV .[id number] CHRIS Stop: 12/21/23 17:04 Last Infusion: 12/20/23 20:29 Dose: Infused Documented By: Infusion: 12/20/23 13:35 Dose: 60 mls/hr Documented By: Infusion: 12/20/23 10:30 Dose: 0 mls/hr Documented By: Admin: 12/20/23 08:27 Dose: 60 mls/hr Documented By: ANTHONY Sodium Chloride (Nss) 500 mls @ 500 mls/hr IV .Q1H ONE Stop: 12/20/23 21:04 Last Infusion: 12/20/23 21:30 Dose: Infused Documented By: Admin: 12/20/23 20:28 Dose: 500 mls/hr Documented By: BIANCA Ketorolac Tromethamine (Ketorolac 30 Mg/Ml Vial) 30 mg IV NOW STA Stop: 12/20/23 05:22 Last Admin: 12/20/23 05:31 Dose: 30 mg Documented By: SVITLANA Medical Decision Making Differential Diagnosis Differential diagnosis: Etiologies such as shingles, pyelonephritis/UTI, renal colic, appendicitis, diverticulitis, mesenteric ischemia, torsion, aortic pathology, infections, inflammatory bowel disease, bowel obstruction, PUD, biliary pathology, as well as others were entertained. Laboratory Data 12/20/23 20:23 12/20/23 05:32 Lab Results 12/20/23 12/20/23 Range/Units 05:30 05:32 WBC 6.60 (4.8-10.8) K/ul RBC 5.05 (4.20-5.40) M/uL Hgb 14.4 (12.0-16.0) g/dl Hct 45.4 (37.0-47.0) % MCV 89.9 (80.0-100.0) fL MCH 28.5 (25.0-34.0) pg MCHC 31.7 L (32.0-36.0) g/dL RDW Std Deviation 43.5 (36.4-46.3) fL RDW Coeff of Arlene 13.3 (11.5-14.5) % Plt Count 128 L (130-400) K/uL MPV 11.7 (9.4-12.4) fL Immature Gran % (Auto) 0.6 % Neut % (Auto) 94.7 % Lymph % (Auto) 3.5 % [place] % (Auto) 0.5 % Eos % (Auto) 0.2 % Baso % (Auto) 0.5 % Neut # (Auto) 6.26 (1.40-6.50) K/uL Lymph # (Auto) 0.23 L (1.20-3.40) K/uL [place] # (Auto) 0.03 L (0.11-0.59) K/uL Eos # (Auto) 0.01 (0.00-0.50) K/uL Baso # (Auto) 0.03 (0.00-0.20) K/uL Immature Gran # (Auto) 0.04 (0.01-0.20) K/uL Sodium 138 (136-145) mmol/L Potassium 3.6 (3.5-5.1) mmol/L Chloride 103 (98-107) mmol/L Carbon Dioxide 27 (21-32) mmol/L Anion Gap 8 (3-11) BUN 18 (6-23) mg/dl Creatinine 0.94 (0.6-1.2) mg/dl Est Cr Clr Drug Dosing 69.7 ml/min Est GFR ( Amer) 77.0 ml/min Est GFR (Non-Af Amer) 66.4 ml/min BUN/Creatinine Ratio 19.1 (10-20) Glucose 143 H (70-99(Fasting)) mg/dl Calcium 9.7 (8.6-10.3) mg/dl Total Bilirubin 1.1 H (0.2-1.0) mg/dl AST 92 H (13-39) U/L ALT 89 H (7-52) U/L Alkaline Phosphatase 137 H (34-104) U/L Total Protein 7.2 (6.0-8.3) gm/dl Albumin 4.3 (3.4-5.0) gm/dl Globulin 2.9 (2.5-4.0) gm/dl Albumin/Globulin Ratio 1.5 (0.9-2) Lipase 12 (11-82) U/L Urine Color Yellow Urine Appearance Clear (Clear) Urine pH 6.5 (4.5-7.5) Ur Specific [place] 1.015 (1.000-1.030) Urine Protein Trace H (Negative) Urine Glucose (UA) Negative (Negative) Urine Ketones Negative (Negative) Urine Blood 1+ H (Negative) Urine Nitrite Negative (Negative) Urine Bilirubin Negative (Negative) Urine Urobilinogen Negative (Negative) Ur Leukocyte Esterase 1+ H (Negative) Urine WBC (Auto) 21-50 H (0-5) /hpf Urine RBC (Auto) >20 H (0-2) /hpf U Hyaline Cast (Auto) 0-2 (0-2) /lpf U Epithel Cells (Auto) 0-2 (0-2) /hpf Urine Bacteria (Auto) 3+ H (None Seen) Imaging Data Radiologist's Impression: Retrograde Pyelogram 12/20/23 00:00 INTRAOPERATIVE RADIOGRAPHS CLINICAL HISTORY: Left ureteral stent placement. Fluoro time: 10 seconds Ka,r: 2.54 mGy FINDINGS: 3 spot fluoroscopic views of the left abdomen are correlated with abdominal CT performed the same day 12/20/2023. A catheter is placed in the left ureter. Injected contrast shows a normal caliber distal ureter with no intraluminal filling defects. A filling defect at the left ureteropelvic junction is consistent with a known obstructing ureteral stone. The final image shows the proximal end of a left ureteral stent in appropriate position. Residual contrast shows left-sided hydronephrosis. IMPRESSION: Intraoperative images from a left ureteral stent placement procedure as above. Electronically signed by: Matthias Mac M.D. 12/20/2023 1:39 PM Retrograde Pyelogram 12/20/23 00:00 INTRAOPERATIVE RADIOGRAPHS CLINICAL HISTORY: Left ureteral stent placement. Fluoro time: 10 seconds Ka,r: 2.54 mGy FINDINGS: 3 spot fluoroscopic views of the left abdomen are correlated with abdominal CT performed the same day 12/20/2023. A catheter is placed in the left ureter. Injected contrast shows a normal caliber distal ureter with no intraluminal filling defects. A filling defect at the left ureteropelvic junction is consistent with a known obstructing ureteral stone. The final image shows the proximal end of a left ureteral stent in appropriate position. Residual contrast shows left-sided hydronephrosis. IMPRESSION: Intraoperative images from a left ureteral stent placement procedure as above. Electronically signed by: Matthias Mac M.D. 12/20/2023 1:39 PM Abdomen/Pelvis CT 12/20/23 05:21 CT SCAN OF THE ABDOMEN AND PELVIS WITHOUT IV CONTRAST CLINICAL HISTORY: Left flank pain COMPARISON STUDY: Abdominal CT dated 12/02/2019. TECHNIQUE: CT scan of the abdomen and pelvis is performed from the lung bases to the proximal femora. Images are reviewed in the axial, sagittal, and coronal planes. IV contrast was not administered for this examination. A dose lowering technique was utilized adhering to the principles of ALARA. CT DOSE: 1282.13 mGy.cm FINDINGS: Lung bases: The heart is normal in size and without pericardial effusion. The lung bases are clear. There is a small hiatal hernia. Liver: The unenhanced liver is normal in size, contour, and attenuation. There is mild central intrahepatic biliary ductal dilatation. Gallbladder: Surgically absent noting clips in the gallbladder fossa. Spleen: Normal in size and attenuation. Pancreas: The unenhanced pancreas is grossly unremarkable. Adrenal glands: Unremarkable. Kidneys: The unenhanced kidneys are normal in size. There is a 14 mm obstructing calculus at the left ureteropelvic junction seen on image #123. This causes moderate left hydroureteronephrosis. There is associated left-sided perinephric stranding and fluid suggesting calyceal rupture. There is foci of gas within left renal collecting system. There are numerous (greater than 5) additional punctate nonobstructing calculi seen in both kidneys. There is no right ureteral stone or right-sided hydronephrosis. There is no evidence of contour deforming renal mass lesion. Abdominal vasculature: The abdominal aorta is normal in course and caliber. Bowel: There is no bowel obstruction. Mild fecal retention is seen throughout the colon. The appendix is not identified and reported surgically absent. Peritoneum: There is no intraperitoneal free air or abdominal ascites. Lymphadenopathy: None. Pelvic viscera: The bladder, uterus, and adnexa are normal as visualized. Skeletal structures: No lytic or blastic lesions are seen. IMPRESSION: 1. There is a 14 mm obstructing calculus at the left ureteropelvic junction. This causes moderate left-sided hydronephrosis. 2. There is left-sided perinephric fluid suggesting calyceal rupture. 3. There are numerous additional punctate nonobstructing calculi seen in both kidneys. 4. There are foci of gas within left renal collecting system. Correlate with clinical findings and urinalysis for evidence of superimposed urinary tract infection. 5. Additional findings as above. ACT 112: Negative or not required by law. Electronically signed by: Matthias Mac M.D. 12/20/2023 6:14 AM MDM Narrative Physical exam and history were performed. Nursing notes, EMR, and Medication List were personally reviewed. No social concerns were identified as barriers to patients care. Patient appears to have left flank pain for the past 5 or 6 hours. She has a longstanding history of kidney stones and appears uncomfortable on presentation. She is allergic to several antibiotics and pain medications. IV access was established and labs were obtained. She seems to have done well with Toradol and this was provided here in the ER. Patient's blood work is as above and was reviewed. She does not have a significant elevated white blood cell count, gross anemia, bandemia, or significant electrolyte imbalance. Urine is suggestive of infection. Transaminases are not diagnostic. CT scan was independently reviewed by myself and radiology. The patient has an exceptionally large 14 mm proximal left sided stone. There is concern there is also air in the renal collecting system which may indicate an infected stone, which is certainly possible considering her urine. Patient was given IV Zosyn here. Case was discussed with Dr. Bruce, and also with [facility] urologist Dr. Delong. Current plan is to admit the patient to this facility for stenting. If stenting is not successful the patient may need additional intervention including nephrostomy tubes which can be transferred to [facility] if needed. Case was discussed with the [facility] hospitalist who agreed to evaluate the patient here in the ER. Please see their dictation for further patient course, plan, disposition. The chart was completed utilizing [employer] Voice Recognition Software. Grammatical errors, random word insertions, pronoun errors, and incomplete sentences are an occasional consequence of this system due to software limitations, ambient noise, and hardware issues. Any formal questions or concerns about the content, text, or information contained within the body of this dictation should be directly addressed to the provider for clarification. . Impression & Plan Left ureteral calculus, Hydronephrosis, left Discharge Plan Visit Data Chief Complaint: Flank Pain Stated Complaint: KIDNEY STONE ISSUE ED Provider: [facility] ED Midlevel Provider: Jb Cardona Discharge Problem: Left ureteral calculus, Hydronephrosis, left Patient Disposition: Admitted As Inpatient Discharge Instructions Interventions: ED Discharge Assessment Last Done: 12/20/23 09:04
[2023-12-20] MEDS: KETOROLAC 30 MG/ML VIAL IV STA (05:31)
[2023-12-20] MEDS: SODIUM CHLORIDE 0.9% 1,000 ML IV SCH ×2 (05:32→08:27)
[2023-12-20 06:15] LABS: Appearance Urine Clear (Clear); Bacteria Urine Automated 3+ (None Seen); Bilirubin Urine Negative (Negative); Blood Urine 1+ (Negative); Cast Urine Automated 0-2 /lpf (0-2); Color Urine Yellow; Epithelial Cell Urine Auto 0-2 /hpf (0-2); Glucose Urine UA Negative (Negative); Ketones Urine Negative (Negative); Leukocyte Esterase Urine 1+ (Negative); Nitrite Urine Negative (Negative); Protein Urine Trace (Negative); RBC Urine Automated >20 /hpf (0-2); Specific Gravity Urine 1.015 (1.000-1.030); Urobilinogen Urine Negative (Negative); WBC Urine Automated 21-50 /hpf (0-5); pH Urine 6.5 (4.5-7.5)
--- NOTE | 2023-12-20 06:17 | CT Scan Report ---
CT SCAN OF THE ABDOMEN AND PELVIS WITHOUT IV CONTRAST CLINICAL HISTORY: Left flank pain COMPARISON STUDY: Abdominal CT dated 12/02/2019. TECHNIQUE: CT scan of the abdomen and pelvis is performed from the lung bases to the proximal femora. Images are reviewed in the axial, sagittal, and coronal planes. IV contrast was not administered for this examination. A dose lowering technique was utilized adhering to the principles of ALARA. CT DOSE: 1282.13 mGy.cm FINDINGS: Lung bases: The heart is normal in size and without pericardial effusion. The lung bases are clear. T here is a small hiatal hernia. Liver: The unenhanced liver is normal in size, contour, and attenuation. There is mild central intrah epatic biliary ductal dilatation. Gallbladder: Surgically absent noting clips in the gallbladder fossa. Spleen: Normal in size and attenuation. Pancreas: The unenhanced pancreas is grossly unremarkable. Adrenal glands: Unremarkable. Kidneys: The unenhanced kidneys are normal in size. There is a 14 mm obstructing calculus at the left ureteropelvic junction seen on image #123. This causes moderate left hydroureteronephrosis. There is associated left-sided perinephric stranding and fluid suggesting calyceal rupture. There is foci of gas within left renal collecting system. There are numerous (greater than 5) additional punctate nono bstructing calculi seen in both kidneys. There is no right ureteral stone or right-sided hydronephros is. There is no evidence of contour deforming renal mass lesion. Abdominal vasculature: The abdominal aorta is normal in course and caliber. Bowel: There is no bowel obstruction. Mild fecal retention is seen throughout the colon. The appendix is not identified and reported surgically absent. Peritoneum: There is no intraperitoneal free air or abdominal ascites. Lymphadenopathy: None. Pelvic viscera: The bladder, uterus, and adnexa are normal as visualized. Skeletal structures: No lytic or blastic lesions are seen. IMPRESSION: 1. There is a 14 mm obstructing calculus at the left ureteropelvic junction. This causes moderate lef t-sided hydronephrosis. 2. There is left-sided perinephric fluid suggesting calyceal rupture. 3. There are numerous additional punctate nonobstructing calculi seen in both kidneys. 4. There are foci of gas within left renal collecting system. Correlate with clinical findings and ur inalysis for evidence of superimposed urinary tract infection. 5. Additional findings as above. ACT 112: Negative or not required by law. Electronically signed by: Matthias Mac M.D. 12/20/2023 6:14 AM
[2023-12-20 06:18] LABS: Albumin Globulin Ratio 1.5 (0.9-2); Albumin Level 4.3 gm/dl (3.4-5.0); BUN Creatinine Ratio 19.1 (10-20); Bilirubin,Total 1.1 mg/dl (0.2-1.0); Calcium 9.7 mg/dl (8.6-10.3); Creatinine Clr Calc Pharmacy 69.7 ml/min; Est GFR (Non-African American) 66.4 ml/min; Globulin 2.9 gm/dl (2.5-4.0); Potassium 3.6 mmol/L (3.5-5.1); Total Protein 7.2 gm/dl (6.0-8.3)
[2023-12-20] MEDS: PIPERACILLIN/TAZOBACTAM 4.5 GM/100 ML BAG IV ONE (06:44)
[2023-12-20 07:03] LABS: Hematocrit (blood only) 45.4 % (37.0-47.0); Hemoglobin 14.4 g/dl (12.0-16.0); Mean Corpuscular Hemoglobin 28.5 pg (25.0-34.0); Mean Corpuscular Hgb Conc 31.7 g/dL (32.0-36.0); Mean Corpuscular Volume 89.9 fL (80.0-100.0); Mean Platelet Volume 11.7 fL (9.4-12.4); Platelet Count 128 K/uL (130-400); RDW Coefficient of Variation 13.3 % (11.5-14.5); RDW Standard Deviation 43.5 fL (36.4-46.3); Red Blood Count 5.05 M/uL (4.20-5.40)
[2023-12-20 07:04] LABS: Basophils # (auto) 0.03 K/uL (0.00-0.20); Basophils % (auto) 0.5 %; Eosinophils # (auto) 0.01 K/uL (0.00-0.50); Eosinophils % (auto) 0.2 %; Immature Granulocytes # (auto) 0.04 K/uL (0.01-0.20); Immature Granulocytes % (auto) 0.6 %; Lymphocytes # (auto) 0.23 K/uL (1.20-3.40); Lymphocytes % (auto) 3.5 %; Monocytes # (auto) 0.03 K/uL (0.11-0.59); Monocytes % (auto) 0.5 %; Neutrophils # (auto) 6.26 K/uL (1.40-6.50); Neutrophils % (auto) 94.7 %
[2023-12-20] MEDS ORDERED: POLYETHYLENE (MIRALAX) 17 GM PACK PO PRN (07:40)
--- NOTE | 2023-12-20 08:39 | History & Physical Report ---
Date of Service December 20, 2023 Assessment & Plan (1) Calculus of distal left ureter: Plan Obstructive uropathy Left UPJ renal stone Left-sided hydronephrosis Concern for infected stone Patient coming in with acute onset left-sided flank pain, has left cva tender at presentation. Admitting CTAP: 14 mm obstructive calculus at the left UPJ causing moderate left-sided hydronephrosis. Left-sided perinephric fluid suggesting calyceal rupture. Foci of gas within the left renal collecting system suggestive of superimposed urinary tract infection. Urine analysis ? UTI, follow urine culture, send blood culture Continue with Zosyn 01/05, c/w ivf. NPO until uro eval and recs. Urology on board, await further recommendation. Will need obstruction release. DVT prophylaxis: SCDs, ambulation as tolerated for now. Full code History of Present Illness Chief Complaint: left flank pain Primary Care Provider: Elise Zhang MD 58-year-old lady with PMH of recurrent nephrolithiasis, chronic elevated LFT, complicated UTI presented to the ED with complaint of acute onset left flank pain that began around midnight today, roughly 5 hours [employer]. Pain radiation to left lower quadrant per patient. She likens the pain to prior episodes of renal stones. Denies fever or chills or chest tightness or shortness of breath or chest pain. She had associated nausea and vomiting. Patient denies smoking and drug use, drinks alcohol occasionally. Medications were reviewed with patient in detail. Plan of care discussed with patient in detail, she voiced understanding and was agreeable. Full code Allergies Allergy/AdvReac Type Severity Reaction Status Date / Time hydromorphone [From Dilaudid] Allergy Severe hallucinati Verified 09/22/19 04:49 ons morphine Allergy Severe Anxiety Verified 09/22/19 04:49 caffeine Allergy Intermediate Hives Verified 09/22/19 04:49 ciprofloxacin Allergy Intermediate Hives Verified 09/22/19 04:49 codeine Allergy Intermediate muscle Verified 09/22/19 04:49 spasms ibuprofen Allergy Intermediate Palpitation Verified 09/22/19 04:49 s acetaminophen [From Percocet] Allergy Mild diaphoretic Verified 09/22/19 04:49 ceftriaxone Allergy Mild rash Verified 09/22/19 04:49 oxycodone [From Percocet] Allergy Mild diaphoretic Verified 09/22/19 04:49 propoxyphene Allergy Mild diaphoresis Verified 09/22/19 04:49 [From Darvocet-N 100] nitrofurantoin Allergy Hives Verified 12/20/23 06:05 sulfamethoxazole Allergy Hives Verified 12/20/23 06:04 [From Bactrim] trimethoprim [From Bactrim] Allergy Hives Verified 12/20/23 06:04 Home Medications Medication Instructions Recorded Confirmed Type acetaminophen 325 mg tablet 650 mg PO DIRECTED 09/04/19 12/20/23 History (Tylenol) ondansetron HCl 4 mg tablet 4 mg PO Q8H PRN nausea and 09/06/19 12/20/23 Rx (Zofran) vomiting #4 tabs Past Med/Surg History Problem List Calculus of distal left ureter Complicated UTI (urinary tract infection) Sepsis Pyelonephritis (Acute) Hydronephrosis, left (Acute) Left ureteral calculus (Acute) UTI (urinary tract infection) (Acute) Hydronephrosis (Acute) Hypokalemia (Acute) Sepsis Medical History Prediabetes Surgical History Hx of cholecystectomy History of appendectomy Family History Brother Bilateral kidney stones Social History Smoking Status: Never smoker Second Hand Exposure: No; Do You Dip or Chew Tobacco: No; Hx Alcohol Use: Yes Hx Substance Use: No Preferred Language: Afghan Communication Ability: Effective Signal Operator Required: No Beliefs That Will Affect Care: None Current Living Situation: Alone Feels Safe at Home: Yes Assistive Devices: None Review of Systems Review of Systems: Negative otherwise mentioned in HPI. Physical Exam Physical Exam: GENERAL: Alert and oriented x3. NAD, on RA. HEENT: No pallor, no icterus. Pupils equal, round and reactive to light. Oral mucosa moist. NECK: No JVD, no neck masses. HEART: S1 and S2 heard. Regular rate and rhythm. No murmur, no gallop. RESPIRATORY SYSTEM: Normal AP diameter. No accessory muscle use. No wheezing, no crackles. ABDOMEN: Soft, bowel sounds present, left abd tender, no distention. CENTRAL NERVOUS SYSTEM: No facial droop. Speech is clear. Obeys simple comm ands. Moves extremities. EXTREMITIES: No edema, no erythema seen. Left CVA tenderness +, mild. Results & Data Results & Data Vital Signs (Past 12 Hours) Vital Signs Temp Pulse Pulse Resp BP BP Pulse Ox 12/20/23 08:01 97 12/20/23 06:00 86 18 130/81 93 12/20/23 05:13 36.9 C 90 22 162/94 H 97 O2 Del Method 12/20/23 08:01 Room Air 12/20/23 06:00 Room Air 12/20/23 05:13 Room Air
--- NOTE | 2023-12-20 09:25 | Urology Consultation ---
Date of Consultation December 20, 2023 Assessment & Plan (1) Complicated UTI (urinary tract infection): (2) Sepsis: (3) Hydronephrosis, left: (4) Left ureteral calculus: Plan When initially called by the emergency department about her case, due to the presence of gas in the collecting system suggestive of emphysematous infection, I recommended transfer for nephrostomy tube placement for most definitive drainage of the kidney, however no facilities were willing to accept, and wanted her to attempt stent placement first. I had a discussion with Mr. Barnes about her current clinical scenario, specifically that there is evidence of urinary tract infection, obstructed by a stone. In this setting, we will plan to proceed with drainage of the kidney. I offered cystoscopy, left retrograde pyelogram and left ureteral stent placement. We discussed risks and benefits of the surgery including risk of bleeding, infection, injury to urinary tract, need for additional procedures, inability to place stent. She expressed understanding and willingness to proceed. History of Present Illness Reason for Consultation: UTI, left ureteral stone History of Present Illness This is a 58-year-old female with history of nephrolithiasis. She presented to the emergency department on 12/20/2023 with acute onset of left-sided flank pain. The pain woke her up from sleep and was associated with nausea, vomiting. She felt some chills but denies any overt fevers. Workup in the ED was notable for no leukocytosis (WBC 6.60). Creatinine was normal at 0.94. Urinalysis demonstrated 3+ bacteria, 1+ leukocyte esterase, Negative nitrites. She had a CT scan performed. I independently reviewed these images. Both kidneys are in normal position. There is hydronephrosis on the left side as well as significant perinephric stranding. This extends down to a 14 mm stone at the left UPJ. There is additional punctate nephrolithiasis in both kidneys. There appears to be a small focus of gas within the collecting system of the left side. I do not appreciate any other ureteral stones. Bladder is grossly normal. Allergies Allergy/AdvReac Type Severity Reaction Status Date / Time hydromorphone [From Dilaudid] Allergy Severe hallucinati Verified 09/22/19 04:49 ons morphine Allergy Severe Anxiety Verified 09/22/19 04:49 caffeine Allergy Intermediate Hives Verified 09/22/19 04:49 ciprofloxacin Allergy Intermediate Hives Verified 09/22/19 04:49 codeine Allergy Intermediate muscle Verified 09/22/19 04:49 spasms ibuprofen Allergy Intermediate Palpitation Verified 09/22/19 04:49 s acetaminophen [From Percocet] Allergy Mild diaphoretic Verified 09/22/19 04:49 ceftriaxone Allergy Mild rash Verified 09/22/19 04:49 oxycodone [From Percocet] Allergy Mild diaphoretic Verified 09/22/19 04:49 propoxyphene Allergy Mild diaphoresis Verified 09/22/19 04:49 [From Darvocet-N 100] nitrofurantoin Allergy Hives Verified 12/20/23 06:05 sulfamethoxazole Allergy Hives Verified 12/20/23 06:04 [From Bactrim] trimethoprim [From Bactrim] Allergy Hives Verified 12/20/23 06:04 Home Medications Medication Instructions Recorded Confirmed Type acetaminophen 325 mg tablet 650 mg PO DIRECTED 09/04/19 12/20/23 History (Tylenol) ondansetron HCl 4 mg tablet 4 mg PO Q8H PRN nausea and 09/06/19 12/20/23 Rx (Zofran) vomiting #4 tabs Patient History Medical History Prediabetes Surgical History Hx of cholecystectomy History of appendectomy Family History Brother Bilateral kidney stones Social History Smoking Status: Never smoker Second Hand Exposure: No; Do You Dip or Chew Tobacco: No; Hx Alcohol Use: Yes Hx Substance Use: No Preferred Language: Barbadian Communication Ability: Effective Medical Assembly Required: No Beliefs That Will Affect Care: None Current Living Situation: Alone Feels Safe at Home: Yes Assistive Devices: None Review of Systems Review of Systems: 12 point review of systems negative exce pt for otherwise indicated. Physical Exam Constitutional: well developed and well nourished; no acute distress Eyes: + anicteric sclerae; pupils not irregula r Respiratory: normal respiratory effort; no respiratory distress, does not use accessory muscles and no cough Cardiovascular: well perfused Gastrointestinal (Abdomen): Inspection/Auscultation: abdomen normal to inspection; abdomen not distended Musculoskeletal: Extremities: extremities normal to inspection Skin: normal turgor; no rashes and no lesions Neurologic: moves all extremities and awake Psychiatric: Orientation: alert and oriented x 3 Results & Data Vital Signs (Past 12 Hours) Vital Signs Temp Pulse Pulse Resp BP BP Pulse Ox 12/20/23 08:57 87 105/70 96 12/20/23 08:46 84 12/20/23 08:01 97 12/20/23 06:00 86 18 130/81 93 12/20/23 05:13 36.9 C 90 22 162/94 H 97 O2 Del Method 12/20/23 08:57 Room Air 12/20/23 08:46 12/20/23 08:01 Room Air 12/20/23 06:00 Room Air 12/20/23 05:13 Room Air PG Care Time/CCT Total # of Minutes Spent Total Time Spent with Patient: Total time spent is greater than 50% in coordination of care (as documented) at patient's floor/unit and/or counseling patient: Coding Level of Care Code 51710 IN/OBS CONSULT LVL 4,60M Diagnoses Complicated UTI (urinary tract infection) N39.0 Sepsis A41.9 Hydronephrosis, left N13.30 Left ureteral calculus N20.1
--- NOTE | 2023-12-20 10:15 | Anesthesiology Consultation ---
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 Surgery Operation Date: 12/20/23 11:00 Proposed Procedures p Cystoscopy Retrograde - Romel Bruce MD s Ureteral Stent Insertion/Removal - Romel Bruce MD Height/Weight Height: 5 ft 3 in Weight: 92.59 kg Allergies Allergy/AdvReac Type Severity Reaction Status Date / Time hydromorphone [From Dilaudid] Allergy Severe hallucinati Verified 09/22/19 04:49 ons morphine Allergy Severe Anxiety Verified 09/22/19 04:49 caffeine Allergy Intermediate Hives Verified 09/22/19 04:49 ciprofloxacin Allergy Intermediate Hives Verified 09/22/19 04:49 codeine Allergy Intermediate muscle Verified 09/22/19 04:49 spasms ibuprofen Allergy Intermediate Palpitation Verified 09/22/19 04:49 s acetaminophen [From Percocet] Allergy Mild diaphoretic Verified 09/22/19 04:49 ceftriaxone Allergy Mild rash Verified 09/22/19 04:49 oxycodone [From Percocet] Allergy Mild diaphoretic Verified 09/22/19 04:49 propoxyphene Allergy Mild diaphoresis Verified 09/22/19 04:49 [From Darvocet-N 100] nitrofurantoin Allergy Hives Verified 12/20/23 06:05 sulfamethoxazole Allergy Hives Verified 12/20/23 06:04 [From Bactrim] trimethoprim [From Bactrim] Allergy Hives Verified 12/20/23 06:04 Medications Home Medications Medication Instructions Recorded Confirmed Last Taken acetaminophen 325 mg tablet 650 mg PO DIRECTED 09/04/19 12/20/23 09/21/19 20:00 (Tylenol) 650 mg ondansetron HCl 4 mg tablet 4 mg PO Q8H PRN nausea and 09/06/19 12/20/23 12/20/23 (Zofran) vomiting #4 tabs Active Medications Generic Name Dose Route Start Last Admin Trade Name Freq PRN Reason Stop Dose Admin Sodium Chloride 1,000 mls @ 60 mls/hr 12/20/23 07:45 12/20/23 08:27 Nss IV 12/21/23 17:04 60 mls/hr .[id number] CHRIS Administration Past Medical History Medical History Prediabetes Past Family History Family History Brother Bilateral kidney stones Past Surgical History Surgical History Hx of cholecystectomy History of appendectomy Social History Smoking Status: Former smoker tobacco type: cigarettes Do You Dip or Chew Tobacco: No Hx Alcohol Use: Yes alcohol intake frequency: holidays/special occasions only Hx Substance Use: No substance use type: does not use Physical Exam Vital Signs Last Vital Signs Temp 98.6 F 12/20/23 09:30 Pulse 90 12/20/23 09:30 Resp 16 12/20/23 09:30 BP 124/74 12/20/23 09:30 Pulse Ox 97 12/20/23 09:30 O2 Del Method Room Air 12/20/23 09:30 Testing Laboratory Results 12/20/23 05:32 12/20/23 05:32 Urine Color Yellow 12/20/23 05:30 Urine Appearance Clear (Clear) 12/20/23 05:30 Urine pH 6.5 (4.5-7.5) 12/20/23 05:30 Ur Specific [place] 1.015 (1.000-1.030) 12/20/23 05:30 Urine Protein Trace (Negative) H 12/20/23 05:30 Urine Glucose (UA) Negative (Negative) 12/20/23 05:30 Urine Ketones Negative (Negative) 12/20/23 05:30 Urine Nitrite Negative (Negative) 12/20/23 05:30 Ur Leukocyte Esterase 1+ (Negative) H 12/20/23 05:30 Urine WBC (Auto) 21-50 /hpf (0-5) H 12/20/23 05:30 Urine RBC (Auto) >20 /hpf (0-2) H 12/20/23 05:30 U Hyaline Cast (Auto) 0-2 /lpf (0-2) 12/20/23 05:30 U Epithel Cells (Auto) 0-2 /hpf (0-2) 12/20/23 05:30 Urine Bacteria (Auto) 3+ (None Seen) H 12/20/23 05:30
[2023-12-20] MEDS ORDERED: fentaNYL citrate PF 100 MCG/2 ML VIAL ONE (10:42)
[2023-12-20] MEDS ORDERED: LIDOCAINE 2% 2 ML VIAL/AMP(20MG/ML) INFIL ONE (10:42)
[2023-12-20] MEDS ORDERED: PROPOFOL IV EMULSION 10 MG/ML 20 ML VIAL IV ONE (10:42)
[2023-12-20] MEDS ORDERED: MIDAZOLAM HCL 1 MG/ML 2ML VIAL ONE (10:42)
[2023-12-20] MEDS ORDERED: ePHEDrine sulfate 50 MG/ML AMP IV PRN (10:44)
[2023-12-20] MEDS ORDERED: ATROPINE SULFATE 0.1 MG/ML 10ML SYR IV PRN (10:44)
[2023-12-20] MEDS ORDERED: ONDANSETRON INJ 2 MG/ML 2 ML VIAL IV PRN (10:44)
[2023-12-20] MEDS ORDERED: fentaNYL citrate PF 100 MCG/2 ML VIAL IV PRN (10:44)
[2023-12-20] MEDS ORDERED: KETAMINE HCL 10MG/ML SYR ONE (11:08)
[2023-12-20] MEDS ORDERED: DEXAMETHASONE SOD INJ 4 MG/ML VIAL ONE (11:15)
[2023-12-20] MEDS ORDERED: ONDANSETRON INJ 2 MG/ML 2 ML VIAL ONE (11:15)
[2023-12-20] MEDS ORDERED: KETOROLAC 30 MG/ML VIAL ONE (11:19)
[2023-12-20] MEDS: DIATRIZOATE MEGLUMINE 30% 100ML VIAL INSTIL ONE (11:20)
--- NOTE | 2023-12-20 11:25 | Operative Report ---
PG Post Operative Report Pre & Post Diagnosis Operation Date: 12/20/23 11:00 Preoperative diagnosis: Left ureteral stone, UTI Postoperative diagnosis: Left ureteral stone, UTI I identified the patient and participated in the time-out.: Yes Procedure Operation Date: 12/20/23 11:00 Cystoscopy, left retrograde pyelogram, left ureteral stent placement Surgeon Romel Bruce MD Sort Worker None Estimated Blood Loss 0 Findings Consistent with Post-Op Diagnosis Specimens Urine from left kidney for culture Drains 6 Gambian by 24 cm double-J ureteral stent in the left ureter Anesthesia Type MAC Complications none Disposition Accompanied Patient To Recovery: Yes Disposition: Recovery Room Indications This is a 58-year-old female followed by urology for nephrolithiasis. She presented to the emergency department was found to have a left UPJ stone as well as findings concerning for UTI. She is brought to the OR for left ureteral stent placement. Description of Procedure The patient was identified in the holding area and informed consent was confirmed. She was marked on the left side, then was taken to the operating room where anesthesia was initiated. She was placed in the dorsal lithotomy position with all pressure points appropriately padded. She was prepped and draped in the usual sterile fashion and a preoperative timeout was performed. A well-lubricated cystoscope was inserted per urethra and panendoscopy was performed. The urethra was normal in appearance. The bladder was of normal size with ureteral orifices in orthotopic position. The left ureteral orifice was identified and cannulated with a 5 Gambian open- ended catheter. A retrograde pyelogram was performed demonstrating distal ureter was normal in course and caliber. At the UPJ there was a filling defect consistent with her known stone. There was some passage of contrast up to the kidney. A 0.038" ZIPwire was advanced to the level of the kidney under fluoroscopic guidance. Advanced the 5 Gambian catheter up to the kidney and a small amount of urine was aspirated to be sent for culture. The wire was then replaced. Over the wire, a 6 Gambian x 24 centimeter double-J ureteral stent was advanced. When the wire was removed, the proximal curl was visualized in the kidney with x-ray, and the distal curl visualized in the bladder with the cystoscope. At this point the bladder was drained and all instrumentation was removed. The patient was then awakened from anesthesia and was brought to the PACU in stable condition. I attest to the content of the Intraoperative Record and any orders documented therein. Any exceptions are noted below.
--- OUTSIDE RECORDS SUMMARY | 2023-12-20 12:07 | External Medical Summary | Summary of Care ---
Author Name Unknown Organization [facility] Address [address] [place] [facility] [place] [address] Phone [phone] Care Team Providers Care Brine Supervisor Name Role Phone Elise Zhang MD Primary Care Provide r Reason for Visit * Reason Onset Date Comments Health Maintenance 10/15/2023 Encounter Details Date Type Department Care Team (Late st Contact Info) Description 10/15/2023 Telephone Family Medicine [address] [id number] Elise Zhang MD [address] [place] [address] [place] [address] Health Maintenance Allergies Active Allergy Reactions Criticality Noted Date Comments Sulfamethoxazole-Trimethop rim 07/06/2018 Caffeine 06/06/2010 Ceftriaxone Low 09/05/2019 Ciprofloxacin Hives Medium 08/14/2011 Propoxyphene N-Acetaminophen 05/25/2010 Vomiting perspires Hydromorphone Hcl Nausea/vomiting 06/21/2010 Ibuprofen 06/06/2010 Nitrofurantoin 04/20/2020 Caused liver issue Morphine And Related 10/22/2005 Abdominal cramping Morphine Sulfate 06/06/2010 Percocet 10/22/2005 Vomiting,perspiring documented as of this encounter (statuses as of 10/15/2023) Medications Medication Sig Dispensed Refills Start Date End Date Status Tamsulosin HCl 0.4 MG Oral Capsule (Flomax) Take by mouth 1 Capsule in the morning. 10 Capsule 0 01/01/2022 Active Additional Information Patient not taking.Reported on 01/16/2023 Baclofen 20 MG Oral TabletIndications: Strain of lumbar region, initial encounter Take 1 Tablet by mouth in the morning and 1 Tablet before bedtime. As needed for muscle pain. 30 Tablet 0 01/16/2023 Active Additional Information Patient not taking.Reported on 05/19/2023 documented as of this encounter (statuses as of 10/15/2023) Active Problems Problem Noted Date Diagnosed Date ADVANCE DIRECTIVE INFORMATION 10/22/2005 Overview: No, Advance Directive brochure given to patient. documented as of this encounter (statuses as of 10/15/2023) Immunizations Name Administration Dates Next Due Hepatitis B, 20+ yrs 12/04/2006,11/25/2005,10/22 PPD 11/23/2008,11/23/2007,10/22/2005 TD - Tetanus/Diptheria (ADULT) 10/22/2005 documented as of this encounter Social History Tobacco Use Types Packs/Day Years Used Date Smoking Tobacco: Never Smokeless Tobacco: Never Alcohol Use Standard Drinks/Week Comments Yes 0 (1 standard drink = 0.6 oz pur e alcohol) social PHQ-2 Answer Date Recorded PHQ-2 Score -1 02/27/2020 Hunger Vital Sign Answer Date Recorded Within the past 12 months, y ou worried that your food would run out before you got the money to buy more. Never true 01/17/20 23 Within the past 12 months, t he food you bought just didn't last and you didn't have money to get more. Never true 01/16/2023 Sex and Gender Information Value Date Recorded Sex Assigned at Female 01/16/2023 7:01 AM EDT Gender Identity Female 01/16/2023 7:01 AM EDT Sexual Orientation Straight 01/16/2023 7: 01 AM EDT Job Start Date Occupation Industry Not on file Not on file Not on file documented as of this encounter Miscellaneous Notes * Telephone Encounter - Maki PalaciosESTER - 10/15/2023 10:35 AM EDT Care Gaps Comprehensive Care Outreach Last Office/Telemedicine Visit: 01/16/2023 (in office), 05/21/2021 (telemedicine) Next Office Visit: Visit date not found Hemoglobin AIC Results: No results found for: "HEMOGLOBIN A1C" BP Readings from Last 1 Encounters: 05/19/23 122/80 Reviewed Health Maintenance below: Health Maintenance Topic Date Due HIV Screening Never done Hepatitis C Screening Never done Cervical Cancer Screening Never done Mammogram Never done DTaP,Tdap,and Td Vaccines (1 - Tdap) 10/23/2005 Colorectal Cancer Screening Never done Zoster Vaccines (1 of 2) Never done Depression Screening 03/06/2020 Lipid Panel 01/08/2023 Ov Mamm Pap Colon lab Care Gap Outreach Action Taken: Unable to reach and GuestDrivenhart message sent documented in this encounter Plan of Treatment Health Maintenance Due Date Last Done Comments HIV Screening 10/22/1979 Hepatitis C Screening 1982 Pap Smear 1985 Cervical Cancer Screening 1994 HPV/Co-Test 1994 Mammogram 2004 DTaP,Tdap,and Td Vaccines (1 - Tdap) 10/23/2005 10/22/2005 Cologuard 2009 Colonoscopy 2009 Colorectal Cancer Screening 2009 Fecal Occult Blood Test 2009 Sigmoidoscopy 2009 Zoster Vaccines (1 of 2) 2014 Depression Screening 03/06/2020 03/06/2019 Lipid Panel 01/08/2023 01/08/2018 COVID-19 Vaccine (1 - 2022-2 4 season) 2023 Influenza Vaccine (FLU shot) (Season Ended) 2024 Hepatitis B Completed 12/04/2006, 11/25/2005, 10/22/2005 GARDASIL-HPV IMMUNIZATION SERIES Aged Out No longer eligible b ased on patient's age to complete this topic MENINGOCOCCAL (MENACTRA/MENVEO) Aged Out No longer eligible b ased on patient's age to complete this topic Pneumococcal Vaccine: Pediatrics (0 to 5 Years) and At-Risk Patients (6 to 64 Years) Aged Out No longer eligible b ased on patient's age to complete this topic documented as of this encounter Medical Devices Not on filedocumented as of this encounter Advance Directives Latest Code Status on File Code Status Date Activated Date Inactivated Comments Full Code 07/17/2010 8:45 AM 07/17/2010 6:55 PM This or josé luis reflects the patients wishes and were consensually agreed upon. Code Status History Code Status Date Activated Date Inactivated Comments Full Code 06/07/2010 8:35 AM 06/07/2010 11:21 PM Th is order reflects the patients wishes and were consensually agreed upon. Full Code 06/06/2010 9:06 PM 06/07/2010 8:35 AM Thi s order reflects the patients wishes and were consensually agreed upon. Question Answer Comments Discussion of Advance Directives occurred with: Patient Care Teams Brine Supervisor Relationship Specialty Start Date End Date Elise Zhang MD [address] [place] [address] SHAMIKA Nesbitt [id number] PCP - General Family Medicine 01/08/18 documented as of this encounter
--- NOTE | 2023-12-20 12:17 | Anesthesiology Progress Note ---
Date of Service December 20, 2023 Anesthesia Post Procedure Vital Signs Vital Signs: Temp Pulse Pulse Pulse Resp BP BP 12/20/23 12:10 80 17 93/55 L 12/20/23 12:00 81 17 93/53 L 12/20/23 11:50 85 17 103/50 L 12/20/23 11:40 87 21 97/58 L 12/20/23 11:31 98.2 F 88 22 96/63 L 12/20/23 09:30 98.6 F 90 16 124/74 12/20/23 08:57 87 105/70 12/20/23 08:46 84 12/20/23 08:01 12/20/23 06:00 86 18 130/81 12/20/23 05:13 98.4 F 90 22 162/94 H Pulse Ox O2 Del Method O2 Flow Rate 12/20/23 12:10 92 Room Air 12/20/23 12:00 93 Room Air 12/20/23 11:50 95 Oxymask 3 12/20/23 11:40 98 Oxymask 6 12/20/23 11:31 92 Oxymask 6 12/20/23 09:30 97 Room Air 12/20/23 08:57 96 Room Air 12/20/23 08:46 12/20/23 08:01 97 Room Air 12/20/23 06:00 93 Room Air 12/20/23 05:13 97 Room Air Pain Intensity Left Flank: Pain Intensity: 3 Transfer of Care Handoff Completed per policy Notes Mental Status: alert / awake / arousable and participated in evaluation Patient Amnestic to Procedure: Yes Nausea / Vomiting: adequately controlled Pain: adequately controlled Airway Patency, RR, SpO2: stable & adequate BP & HR: stable & adequate Hydration State: stable & adequate Anesthetic Complications: no major complications apparent and Pt Satisfied with anesthetic care
--- NOTE | 2023-12-20 13:41 | Fluoroscopy Report ---
INTRAOPERATIVE RADIOGRAPHS CLINICAL HISTORY: Left ureteral stent placement. Fluoro time: 10 seconds Ka,r: 2.54 mGy FINDINGS: 3 spot fluoroscopic views of the left abdomen are correlated with abdominal CT performed day 12/20/2023. A catheter is placed in the left ureter. Injected contrast shows a normal calib er distal ureter with no intraluminal filling defects. A filling defect at the left ureteropelvic roxy ction is consistent with a known obstructing ureteral stone. The final image shows the proximal end o f a left ureteral stent in appropriate position. Residual contrast shows left-sided hydronephrosis. IMPRESSION: Intraoperative images from a left ureteral stent placement procedure as above. Electronically signed by: Matthias Mac M.D. 12/20/2023 1:39 PM
[2023-12-20] MEDS: ADVANCED PROBIOTIC 625 MG CAPSULE PO SCH (13:52)
[2023-12-20] MEDS: PIPERACILLIN/TAZOBACTAM 4.5 GM in DEXTROSE 5% MINI-B 100 ML IV SCH (13:52)
[2023-12-20] MEDS: SODIUM CHLORIDE 0.9% 500 ML IV ONE (20:28)
[2023-12-20 20:36] LABS: Hematocrit (blood only) 41.3 % (37.0-47.0); Hemoglobin 13.2 g/dl (12.0-16.0)
[2023-12-20] MEDS ORDERED: SODIUM CHLORIDE 0.9% 1,000 ML IV SCH (21:00)
[2023-12-20] MEDS: LACTATED RINGER'S 1,000 ML IV ONE (21:28)
[2023-12-20] MEDS: traMADol HCL 50 MG TABLET PO PRN (22:18)
--- NOTE | 2023-12-21 02:21 | Communication Note ---
Date of Service: December 21, 2023 SBP 90-100s postop as per RN Mild postop discomfort as per RN. Lactic acid from 2.9 to 9.2 AP Hypotension, lactic acidosis Monitor lactic acid response to IVF Patient transferred to medical telemetry as per [facility] RN request.
[2023-12-21] MEDS: SODIUM CHLORIDE 0.9% 1,000 ML IV SCH (02:23)
[2023-12-21] MEDS: ACETAMINOPHEN 500 MG TAB PO PRN (04:03)
[2023-12-21] MEDS: LACTATED RINGER'S 1,000 ML IV SCH ×2 (04:25)
[2023-12-21 04:40] LABS: Hematocrit (blood only) 37.3 % (37.0-47.0); Hemoglobin 11.8 g/dl (12.0-16.0); Mean Corpuscular Hemoglobin 28.6 pg (25.0-34.0); Mean Corpuscular Hgb Conc 31.6 g/dL (32.0-36.0); Mean Corpuscular Volume 90.5 fL (80.0-100.0); Mean Platelet Volume 11.8 fL (9.4-12.4); Platelet Count 107 K/uL (130-400); RDW Coefficient of Variation 13.8 % (11.5-14.5); RDW Standard Deviation 46.1 fL (36.4-46.3); Red Blood Count 4.12 M/uL (4.20-5.40); White Blood Count 24.53 K/ul (4.8-10.8)
[2023-12-21 04:55] LABS: BUN Creatinine Ratio 21.4 (10-20); Calcium 7.4 mg/dl (8.6-10.3); Creatinine Clr Calc Pharmacy 93.5 ml/min; Est GFR (African American) 109.9 ml/min; Est GFR (Non-African American) 94.8 ml/min; Magnesium 1.2 mg/dl (1.7-2.4); Phosphorus 2.2 mg/dl (2.5-4.9); Potassium 3.3 mmol/L (3.5-5.1)
[2023-12-21] MEDS: POTASSIUM CHLORIDE PWD 20 MEQ PACK PO STA (05:30)
[2023-12-21] MEDS: NSS + 20MEQ KCL 20 MEQ/1,000 ML BAG IV ONE (05:31)
[2023-12-21] MEDS: MAGNESIUM SULFATE / D5W 1 GM/100 ML BAG IV SCH (05:37)
[2023-12-21] MEDS ORDERED: POTASSIUM PHOS 3 MMOL/1 ML INFUSION IV STA (08:18)
[2023-12-21] MEDS: POTASSIUM PHOSPHATE 9 MMOL in SODIUM CHLORIDE 0.9% 250 ML IV ONE (09:10)
--- NOTE | 2023-12-21 10:01 | Urology Progress Note ---
Date of Service December 21, 2023 Assessment & Plan (1) Sepsis: (2) Left ureteral calculus: (3) Hydronephrosis, left: (4) Pyelonephritis: Plan She is recovering appropriately s/p left ureteral stent placement on 12/19. With increased leukocytosis and soft blood pressures overnight, this raises concern for ongoing underlying infection. Vital signs are looking good this morning, but should be monitored closely. Would continue broad-spectrum antibiotics and narrow coverage as culture data becomes available. No plan for additional urologic intervention during this admission. Once infection is treated, we will follow-up outpatient and likely plan for ureteroscopy and laser lithotripsy. Admission and Anticipated Discharge Date Admission Date: December 20, 2023 Subjective Feeling okay this morning Denies fevers, not having any nausea Still having some soreness of the left flank Has some soft blood pressures overnight with new leukocytosis (WBC 24) Lactate was up to 2.9 but down to 1.4 this morning Tolerating the stent without significant urgency or discomfort Urine culture with gram-negative rods preliminary, blood cultures pending. Still on broad-spectrum antibiotics with Zosyn. Physical Exam Physical Exam: Seated in bed, slightly flushed, NAD Results & Data Vital Signs (Past 12 Hours) Vital Signs Temp Pulse Pulse Resp BP BP Pulse Ox 12/21/23 08:39 66 12/21/23 07:27 36.7 C 67 16 113/77 94 12/21/23 03:57 88 12/21/23 03:45 36.8 C 83 18 127/79 92 12/21/23 03:24 37 C 79 18 108/68 96 12/21/23 02:06 109/70 12/21/23 00:01 36.8 C 66 18 103/68 95 O2 Del Method 12/21/23 08:39 12/21/23 07:27 Room Air 12/21/23 03:57 12/21/23 03:45 Room Air 12/21/23 03:24 Room Air 12/21/23 02:06 12/21/23 00:01 Room Air PG Care Time/CCT Total # of Minutes Spent Total Time Spent with Patient: Total time spent is greater than 50% in coordination of care (as documented) at patient's floor/unit and/or counseling patient: Coding Level of Care Code 04941 SUB INP/OBS CARE 1/25MIN Diagnoses Sepsis A41.9 Left ureteral calculus N20.1 Hydronephrosis, left N13.30 Pyelonephritis N12
--- NOTE | 2023-12-21 15:20 | Hospitalist Progress Note ---
Date of Service December 21, 2023 Assessment & Plan (1) Calculus of distal left ureter: Plan Obstructive uropathy Left UPJ renal stone Left-sided hydronephrosis Concern for infected stone Patient coming in with acute onset left-sided flank pain, has left cva tender at presentation. Admitting CTAP: 14 mm obstructive calculus at the left UPJ causing moderate left-sided hydronephrosis. Left-sided perinephric fluid suggesting calyceal rupture. Foci of gas within the left renal collecting system suggestive of superimposed urinary tract infection. Urine analysis ? UTI, 12/19 UCx w/ GNB, f/u Bl Cx 12/19 Continue with Zosyn 01/05, c/w probiotic Urology on board, s/p stent, pt improving appropriately as of now. f/u uro as op. DVT prophylaxis: Hep SC. Full code Admission and Anticipated Discharge Date Admission Date: December 20, 2023 Subjective Patient was seen and examined at bedside. Patient was sitting up in bed, on room air, NAD, resting comfortably. Overnight patient was hypotensive and needed IV fluids, patient has been afebrile. Patient reports somewhat improvement in her condition. Patient denies nausea, vomiting. Patient reports eating okay. Physical Exam Physical Exam: GENERAL: Alert and oriented x3. NAD, on RA. HEENT: No pallor, no icterus. Pupils equal, round and reactive to light. Oral mucosa moist. NECK: No JVD, no neck masses. HEART: S1 and S2 heard. Regular rate and rhythm. No murmur, no gallop. RESPIRATORY SYSTEM: Normal AP diameter. No accessory muscle use. No wheezing, no crackles. ABDOMEN: Soft, bowel sounds present, left abd tender, no distention. CENTRAL NERVOUS SYSTEM: No facial droop. Speech is clear. Obeys simple commands. Moves extremities. EXTREMITIES: No edema, no erythema seen. Left CVA tenderness +, mild. Results & Data Results & Data Vital Signs (Past 12 Hours) Vital Signs Temp Pulse Pulse Resp BP BP Pulse Ox 12/21/23 13:46 67 12/21/23 11:34 37.2 C 71 16 113/76 97 12/21/23 08:39 66 12/21/23 07:27 36.7 C 67 16 113/77 94 12/21/23 03:57 88 12/21/23 03:45 36.8 C 83 18 127/79 92 12/21/23 03:24 37 C 79 18 108/68 96 O2 Del Method 12/21/23 13:46 12/21/23 11:34 Room Air 12/21/23 08:39 12/21/23 07:27 Room Air 12/21/23 03:57 12/21/23 03:45 Room Air 12/21/23 03:24 Room Air
[2023-12-21] MEDS: HEPARIN SOD 5,000 UNIT/0.5 ML VIAL SQ SCH (19:55)
[2023-12-21] MEDS: CALCIUM CARBONATE 500 MG CHEWABLE TAB PO PRN (20:08)
[2023-12-22 06:42] LABS: Hematocrit (blood only) 39.1 % (37.0-47.0); Hemoglobin 12.5 g/dl (12.0-16.0); Mean Corpuscular Hemoglobin 28.9 pg (25.0-34.0); Mean Corpuscular Volume 90.3 fL (80.0-100.0); Mean Platelet Volume 12.5 fL (9.4-12.4); Platelet Count 104 K/uL (130-400); RDW Coefficient of Variation 13.9 % (11.5-14.5); RDW Standard Deviation 46.3 fL (36.4-46.3); Red Blood Count 4.33 M/uL (4.20-5.40); White Blood Count 14.11 K/ul (4.8-10.8)
[2023-12-22 07:07] LABS: Calcium 8.8 mg/dl (8.6-10.3); Creatinine Clr Calc Pharmacy 100.7 ml/min; Est GFR (African American) 112.6 ml/min; Est GFR (Non-African American) 97.2 ml/min; Magnesium 1.9 mg/dl (1.7-2.4); Phosphorus 2.2 mg/dl (2.5-4.9); Potassium 4.1 mmol/L (3.5-5.1)
[2023-12-22 07:33] LABS: A calco-baum cmplx NotReported Not Detected (NotDetected); Bact fragilis Not Reported Not Detected (NotDetected); Blood Culture Id Panel See PCR Comment (NotDetected); C auris Not Reported Not Detected (NotDetected); CTX-M Resistant Gene Not Detected (NotDetected); Calbicans Not Reported Not Detected (NotDetected); Candida glabrata Not Reported Not Detected (NotDetected); Candida krusei Not Reported Not Detected (NotDetected); Cneoformans/gatti Not Reported Not Detected (NotDetected); Cparapsilosis Not Reported Not Detected (NotDetected); E cloacae compx Not Reported Not Detected (NotDetected); Efaecalis Not Reported Not Detected (NotDetected); Efaecium Not Reported Not Detected (NotDetected); Enterobacterales DETECTED (NotDetected); Enterobacterales Not Reported DETECTED (NotDetected); Escherichia coli Not Reported DETECTED (NotDetected); H influenzae Not Reported Not Detected (NotDetected); IMP Resistant Gene Not Detected (NotDetected); K aerogenes Not Reported Not Detected (NotDetected); KPC Resistant Gene Not Detected (NotDetected); Koxytoca Not Reported Not Detected (NotDetected); Kpneumoniae grp Not Reported Not Detected (NotDetected); Lmonocyt Not Reported Not Detected (NotDetected); N meningitidis Not Reported Not Detected (NotDetected); NDM Resistant Gene Not Detected (NotDetected); OXA 48 Like Resistant Gene Not Detected (NotDetected); P aeruginosa Not Reported Not Detected (NotDetected); Proteus spp Not Reported Not Detected (NotDetected); Salmonella spp Not Reported Not Detected (NotDetected); Staph lugdunensis Not Reported Not Detected (NotDetected); Staph spp. Not Reported Not Detected (NotDetected); Staphaureus Not Reported Not Detected (NotDetected); Staphepi Not Reported Not Detected (NotDetected); Stenmaltophilia Not Reported Not Detected (NotDetected); Strep agal(GrpB) Not Reported Not Detected (NotDetected); Strep pneum Not Reported Not Detected (NotDetected); Strep pyog (GrpA) Not Reported Not Detected (NotDetected); Strep spp Not Reported Not Detected (NotDetected); VIM Resistant Gene Not Detected (NotDetected); mcr-1 Colistin Resistant Gene Not Detected (NotDetected)
--- NOTE | 2023-12-22 08:31 | Hospitalist Progress Note ---
Date of Service December 22, 2023 Assessment & Plan (1) Calculus of distal left ureter: Plan Obstructive uropathy Left UPJ renal stone Left-sided hydronephrosis Concern for infected stone Patient coming in with acute onset left-sided flank pain, has left cva tender at presentation. Admitting CTAP: 14 mm obstructive calculus at the left UPJ causing moderate left-sided hydronephrosis. Left-sided perinephric fluid suggesting calyceal rupture. Foci of gas within the left renal collecting system suggestive of superimposed urinary tract infection. Urine analysis ? UTI, 12/19 UCx w/ GNB, f/u Bl Cx 12/19 Continue with Zosyn 01/05, c/w probiotic Urology on board, s/p stent, pt improving appropriately as of now. f/u with Urology as an outpatient which is being arranged by Uro. 12/21: POD #2 s/p L Ureteral stent post cysto. She is tolerating her L ureteral stent with minimal discomfort VSS and leukocytosis improving; initially 24.53--> 14.11 Continue IV Zosyn; awaiting ID input Urine and kidney culture growing lovett-sensitive E.Coli x2 without detected resistance markers in the blood Moving towards de-escalation. If no input from ID by end of day today, will switch from IV Zosyn to IV Cefazolin IV Q8. Patient does have rash from ceft riaxone documented. DVT prophylaxis: Hep SC. Full code I spent a total of 56 minutes coordinating, documenting, and providing care for this patient excluding time spent in the performance of separately billed services. All of the aforementioned completed while collaborating with the assigned attending physician for a full treatment plan. Please see their addendum for further details. Admission and Anticipated Discharge Date Admission Date: December 20, 2023 Supervising Physician Co-Signing Physician Notes pt seen and examined. urosepsis s/p stent x left Bacteremia pt feels better, de escalate zosyn to cefazolin. ID consult. repeat bl cx. Additional 20 min spent in addition to LANGUAGE INSTRUCTOR's time. I have seen and examined the patient and have discussed the case with the provider above. I agree with the assessment and plan as stated. Subjective Pt sitting on the bedside with both of her daughters at bedside. She is feeling a little better than yesterday. She denies LEIJA, dizziness, fever, chills, SOB, chest pain. Plans to ambulate a little in the [place] today. Review of Systems Review of Systems: Neuro: (-) Falls, trauma, slurred speech HEENT: (-) LEIJA, dizziness, dysphagia, visual or auditory changes CV: (-) CP, palpitations, swelling Resp: (-) SOB GI: (-) appetite changes, N/V/D, bowel changes : (-) urinary changes Skin: (-) rashes Psych: (-) anxiety, depression Physical Exam Physical Exam: Neuro: AAOx4, PERRLA, no aphagia, memory changes, CNII-XII grossly intact HEENT: head normocephalic, moist mucus membranes CV: S1/S2, (-) M/G/R, (-) edema, cap refill < 3 seconds Resp: Lungs CTA in all torres. On RA GI: Abdomen S/NT/ND, Ax4 bowel sounds, (+) CVA tenderness, but improving Musculoskeletal: 5/5 B/L UE strength, 5/5 B/L LE strength. No gait disturbance Skin: (-) rashes , (-) erythema. Psych: euthymic mood Results & Data Results & Data Vital Signs (Past 12 Hours) Vital Signs Temp Pulse Pulse Resp BP Pulse Ox O2 Del Method 12/22/23 07:45 36.9 C 68 16 103/66 92 Room Air 12/22/23 02:59 37.1 C 71 16 111/75 95 Room Air 12/21/23 22:50 36.7 C 80 16 123/78 95 Room Air 12/21/23 21:59 74 12/21/23 20:39 83 Laboratory Results Short CBC 12/22/23 Range/Units 05:48 WBC 14.11 H (4.8-10.8) K/ul Hgb 12.5 (12.0-16.0) g/dl Hct 39.1 (37.0-47.0) % Plt Count 104 L (130-400) K/uL [facility] 12/22/23 05:48 Sodium 137 Potassium 4.1 D Chloride 107 Carbon Dioxide 24 BUN 13 Creatinine 0.65 Glucose 96 Calcium 8.8
--- NOTE | 2023-12-22 09:02 | Urology Progress Note ---
Date of Service December 22, 2023 Assessment & Plan (1) Calculus of distal left ureter: (2) Complicated UTI (urinary tract infection): (3) Sepsis: Plan: Follow-up of left ureteral stone, UTI/sepsis POD #2 s/p cystoscopy and left ureteral stent placement Afebrile, hemodynamically stable Labs reviewedcreatinine 0.65, WBC downtrending (14.11) Urine and kidney cultures with E. coli Blood cultures with gram negative bacilli, PCR showing E. coli and Enterobacterale Currently on IV Zosyn Continue broad-spectrum antibiotics and narrow coverage as culture data becomes available She is tolerating left ureteral stent with mild bother Continue supportive care, antibiotics, and medical management per hospital medicine Will arrange urology follow-up to set up definitive stone treatment after acute infection has been treated will sign off, please contact our service with any additional questions or concerns Admission and Anticipated Discharge Date Admission Date: December 20, 2023 Subjective Patient seen and examined at bedside this morning She reports feeling a little bit better today Reports mild left flank discomfort intermittently Voiding spontaneouslyreports dysuria, no hematuria No fever or chills Review of Systems Constitutional: as per Subjective / HPI Genitourinary: as per Subjective / HPI Physical Exam Constitutional: well developed and well nourished; no acute distress Respiratory: normal respiratory effort; no respiratory distress and no labored breathing Gastrointestinal (Abdomen): Inspection/Auscultation: abdomen normal to inspection Musculoskeletal: Head/Neck/Chest: normocephalic Neurologic: moves all extremities and awake Psychiatric: Orientation: alert and oriented x 3 Results & Data Vital Signs (Past 12 Hours) Vital Signs Temp Pulse Pulse Resp BP Pulse Ox O2 Del Method 12/22/23 07:45 36.9 C 68 16 103/66 92 Room Air 12/22/23 02:59 37.1 C 71 16 111/75 95 Room Air 12/21/23 22:50 36.7 C 80 16 123/78 95 Room Air 12/21/23 21:59 74 PG Care Time/CCT Total # of Minutes Spent Total Time Spent with Patient: Total time spent is greater than 50% in coordination of care (as documented) at patient's floor/unit and/or counseling patient: Coding Level of Care Code 12212 SUB INP/OBS CARE /25MIN Diagnoses Calculus of distal left ureter N20.1 Complicated UTI (urinary tract infection) N39.0 Sepsis A41.9
[2023-12-22] MEDS: ceFAZolin 2000MG 2,000 MG/15 ML SYR IV SCH (21:27)
[2023-12-23 06:58] LABS: Hematocrit (blood only) 34.7 % (37.0-47.0); Hemoglobin 11.3 g/dl (12.0-16.0); Mean Corpuscular Hemoglobin 28.6 pg (25.0-34.0); Mean Corpuscular Hgb Conc 32.6 g/dL (32.0-36.0); Mean Corpuscular Volume 87.8 fL (80.0-100.0); Platelet Count 116 K/uL (130-400); RDW Coefficient of Variation 13.7 % (11.5-14.5); RDW Standard Deviation 44.2 fL (36.4-46.3); Red Blood Count 3.95 M/uL (4.20-5.40); White Blood Count 9.68 K/ul (4.8-10.8)
[2023-12-23 07:22] LABS: BUN Creatinine Ratio 13.6 (10-20); Calcium 8.5 mg/dl (8.6-10.3); Creatinine Clr Calc Pharmacy 112.7 ml/min; Est GFR (African American) 116.3 ml/min; Est GFR (Non-African American) 100.3 ml/min; Potassium 3.4 mmol/L (3.5-5.1)
--- NOTE | 2023-12-23 08:43 | Discharge Summary ---
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 Pain radiation to left lower quadrant per patient. She likens the pain to prior episodes of renal stones. Denies fever or chills or chest tightness or shortness of breath or chest pain. She had associated nausea and vomiting. Patient denies smoking and drug use, drinks alcohol occasionally. Medications were reviewed with patient in detail. Plan of care discussed with patient in detail, she voiced understanding and was agreeable. Full code Admission Exam Per Admitting Provider GENERAL: Alert and oriented x3. NAD, on RA. HEENT: No pallor, no icterus. Pupils equal, round and reactive to light. Oral mucosa moist. NECK: No JVD, no neck masses. HEART: S1 and S2 heard. Regular rate and rhythm. No murmur, no gallop. RESPIRATORY SYSTEM: Normal AP diameter. No accessory muscle use. No wheezing, no crackles. ABDOMEN: Soft, bowel sounds present, left abd tender, no distention. CENTRAL NERVOUS SYSTEM: No facial droop. Speech is clear. Obeys simple commands. Moves extremities. EXTREMITIES: No edema, no erythema seen. Left CVA tenderness +, mild. Discharge Exam Neuro: AAOx4, PERRLA, no aphagia, memory changes, CNII-XII grossly intact HEENT: head normocephalic, moist mucus membranes CV: S1/S2, (-) M/G/R, (-) edema, cap refill < 3 seconds Resp: Lungs CTA in all torres. On RA GI: Abdomen S/NT/ND, Ax4 bowel sounds, (+) CVA tenderness, but improving Musculoskeletal: 5/5 B/L UE strength, 5/5 B/L LE strength. No gait disturbance Skin: (-) rashes , (-) erythema. Psych: euthymic mood Discharge Data Allergies Allergy/AdvReac Type Severity Reaction Status Date / Time hydromorphone [From Dilaudid] Allergy Severe hallucinati Verified 09/22/19 04:49 ons morphine Allergy Severe Anxiety Verified 09/22/19 04:49 caffeine Allergy Intermediate Hives Verified 09/22/19 04:49 ciprofloxacin Allergy Intermediate Hives Verified 09/22/19 04:49 codeine Allergy Intermediate muscle Verified 09/22/19 04:49 spasms ibuprofen Allergy Intermediate Palpitation Verified 09/22/19 04:49 s acetaminophen [From Percocet] Allergy Mild diaphoretic Verified 09/22/19 04:49 ceftriaxone Allergy Mild rash Verified 09/22/19 04:49 oxycodone [From Percocet] Allergy Mild diaphoretic Verified 09/22/19 04:49 propoxyphene Allergy Mild diaphoresis Verified 09/22/19 04:49 [From Darvocet-N 100] nitrofurantoin Allergy Hives Verified 12/20/23 06:05 sulfamethoxazole Allergy Hives Verified 12/20/23 06:04 [From Bactrim] trimethoprim [From Bactrim] Allergy Hives Verified 12/20/23 06:04 Consultations 12/20/23 07:26 Consult Urology Stat ED Decision to Admit Stat 12/22/23 08:21 Consult Infectious Diseases Routine Procedures Performed Operation Date: 12/20/23 11:00 Actual Procedures p Cystoscopy, Retrograde Pyelogram, Ureteral Stent Insertion-Left(Left) - Romel Bruce MD Ordered Studies 12/20/23 [place] retrograde includes kub Routine 12/20/23 05:21 CT abd pelvis wo con Stat Hospital Course (1) Calculus of distal left ureter: Plan Obstructive uropathy Left UPJ renal stone Left-sided hydronephrosis Concern for infected stone Patient coming in with acute onset left-sided flank pain, has left cva tender at presentation. Admitting CTAP: 14 mm obstructive calculus at the left UPJ causing moderate left-sided hydronephrosis. Left-sided perinephric fluid suggesting calyceal rupture. Foci of gas within the left renal collecting system suggestive of superimposed urinary tract infection. Urine analysis ? UTI, 12/19 UCx w/ GNB, f/u Bl Cx 12/19 Continue with Zosyn 01/05, c/w probiotic Urology on board, s/p stent, pt improving appropriately as of now. f/u with Urology as an outpatient which is being arranged by Uro. 12/21: POD #2 s/p L Ureteral stent post cysto. She is tolerating her L ureteral stent with minimal discomfort VSS and leukocytosis improving; initially 24.53--> 14.11 Continue IV Zosyn; awaiting ID input Urine and kidney culture growing lovett-sensitive E.Coli x2 without detected resistance markers in the blood Moving towards de-escalation. If no input from ID by end of day today, will switch from IV Zosyn to IV Cefazolin IV Q8. Patient does have rash from ceftriaxone documented. DVT prophylaxis: Hep SC. Full code I spent a total of 56 minutes coordinating, documenting, and providing care for this patient excluding time spent in the performance of separately billed services. All of the aforementioned completed while collaborating with the assigned attending physician for a full treatment plan. Please see their addendum for further details. Discharge Plan Discharge Items Reason For Visit: LEFT FLANK PAIN Follow-up/Referrals: Elise Zhang MD [Primary Care Provider] - Medications and DC Order Prescriptions: No Action acetaminophen [Tylenol] 325 mg Tablet 650 mg PO DIRECTED ondansetron HCl [Zofran] 4 mg tablet 4 mg PO Q8H PRN (Reason: nausea and vomiting) Qty: 4 0RF Admission Data Admit Date/Time: 12/20/23 07:40 Attending Provider: Noa Guzman Admit Provider: Noa Guzman Primary Care Provider: Elise Zhang Other Providers: Romel Bruce; Rylee Alvarado; Divya Colon I.; Martina Wood; Ariadna Corona; Vivien Campbell; Yina Munguia; Janneth Soto; Ranjit Zavala; Denis Reyes; Suhail Betts; Arjun Gibson; Yesica Bray; Rajeev Bo; Sasha Du; Krystin Bush; Kadi Zaragoza; Neville Donaldson; Lauren Lovell; Noe Milian; Marnie Ocampo I.; John Hurd; Cami Salazar; Noa Guzman; Zana Ontiveros; Todd Gil; Lloyd Merino; Sia Nicolas; Naya Powell; Gena Zapata; Porter Barrett; Lb Ordaz; David Harris; Jay Soto I.; Del Saenz II; Elise Delvalle; Ambrose Mart; Reggie Turner; Rick Neves
[2023-12-23] MEDS: POTASSIUM CHLORIDE CRTAB 20 MEQ TABCR PO STA (10:34)
--- NOTE | 2023-12-23 15:22 | Infectious Disease Consult ---
Date of Service December 23, 2023 Telehealth Information I performed this visit using a real-time telehealth connection between my location and the patients location ([facility]). After connecting through interactive tele-video, patient was identified by name and date of and/or wristband check.Patient (or authorized healthcare payroll representative) was informed that this was a telemedicine visit and it was being conducted confidentially over secure lines. My office door was closed and no one else was present in the room with me.Patient (or authorized healthcare payroll representative) provided consent to proceed with the visit, expressed an understanding of privacy and security of the telemedicine visit, and gave permission to have a hospital payroll representative in the room in order to assist with the visit and to conduct portions of the visit, as needed. I informed the patient (or authorized healthcare payroll representative) that I reviewed their record and presented the opportunity for them to ask any questions regarding the visit today. The patient agreed to participate. Assessment & Plan (1) Complicated UTI (urinary tract infection): Plan: Continue ancef can switch to augmentin on discharge if blood cultures have similar susceptibilities (2) Pyelonephritis: Plan: Continue ancef and can switch to augmentin on dc for a total of 14 days (3) E coli bacteremia: Plan: Recommend waiting on susceptibilities for her blood cultures prior to de- escalating to augmentin to complete a total of 14 days Plan Patient who presented with left flank pain and was found to have GNB in blood cultures and E Coli in urine and she is on ancef .If her blood cultures have identical susceptibilities as the urine can consider switching to augmentin on discharge to complete a total of 14 days .Thank you for allowing us to participate in the care of this patient ID will sign off History of Present Illness History of Present Illness 58 y/o F PMHx of recurrent nephrolithiasis, chronic elevated LFT, Hx of complicated UTI presented to the ED with complaint of acute onset left flank pain that began around midnight 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 Pain radiation to left lower quadrant per patient She had associated nausea and vomiting. Her blood cultures have grown GNB and her urine is growing E Coli and she is on ancef Allergies Allergy/AdvReac Type Severity Reaction Status Date / Time hydromorphone [From Dilaudid] Allergy Severe hallucinati Verified 09/22/19 04:49 ons morphine Allergy Severe Anxiety Verified 09/22/19 04:49 caffeine Allergy Intermediate Hives Verified 09/22/19 04:49 ciprofloxacin Allergy Intermediate Hives Verified 09/22/19 04:49 codeine Allergy Intermediate muscle Verified 09/22/19 04:49 spasms ibuprofen Allergy Intermediate Palpitation Verified 09/22/19 04:49 s acetaminophen [From Percocet] Allergy Mild diaphoretic Verified 09/22/19 04:49 ceftriaxone Allergy Mild rash Verified 09/22/19 04:49 oxycodone [From Percocet] Allergy Mild diaphoretic Verified 09/22/19 04:49 propoxyphene Allergy Mild diaphoresis Verified 09/22/19 04:49 [From Darvocet-N 100] nitrofurantoin Allergy Hives Verified 12/20/23 06:05 sulfamethoxazole Allergy Hives Verified 12/20/23 06:04 [From Bactrim] trimethoprim [From Bactrim] Allergy Hives Verified 12/20/23 06:04 Home Medications Medication Instructions Recorded Confirmed Type acetaminophen 325 mg tablet 650 mg PO DIRECTED 09/04/19 12/20/23 History (Tylenol) ondansetron HCl 4 mg tablet 4 mg PO Q8H PRN nausea and 09/06/19 12/20/23 Rx (Zofran) vomiting #4 tabs Patient History Medical History (Updated 12/23/23 @ 15:43 by Elise Dlevalle MD) Prediabetes Surgical History Hx of cholecystectomy History of appendectomy Family History Brother Bilateral kidney stones Social History Smoking Status: Former smoker Second Hand Exposure: No; Do You Dip or Chew Tobacco: No; Hx Alcohol Use: Yes Hx Substance Use: No Preferred Language: Czech Communication Ability: Effective [employer] Rock [employer]er Blasting Required: No Beliefs That Will Affect Care: None Current Living Situation: Alone Feels Safe at Home: Yes Assistive Devices: None Review of Systems No respiratory distress afebrile Physical Exam Awake alert oriented no respiratory distress acyanotic anicteric Results & Data Vital Signs (Past 12 Hours) Vital Signs Temp Pulse Pulse Resp BP Pulse Ox O2 Del Method 07/16/24 11:07 36.9 C 75 18 105/70 94 Room Air 12/23/23 07:58 37.2 C 72 18 132/83 95 Room Air 12/23/23 07:22 70 Laboratory Results E coli RX M.I.C. --- --------- Amox/Clav S <=8/4 Ampicillin S <=8 Amp/Sul S <=8/4 Cefazolin S <=2 Cefepime S <=2 Ceftriaxone S <=1 Ciprofloxacin S <=0.25 Ertapenem S <=0.5 Gentamicin S <=4 Levofloxacin S <=0.5 Meropenem S <=1 Nitrofurantoin S <=32 Tobramycin S <=4 Trimeth/Sulfa S <=2/38 Pip/Tazo S <=16 S = SENSITIVE I = INTERMEDIATE R = RESISTANT Diagnostic Findings IMPRESSION: 1. There is a 14 mm obstructing calculus at the left ureteropelvic junction. This causes moderate left-sided hydronephrosis. 2. There is left-sided perinephric fluid suggesting calyceal rupture. 3. There are numerous additional punctate nonobstructing calculi seen in both kidneys. 4. There are foci of gas within left renal collecting system. Correlate with clinical findings and urinalysis for evidence of superimposed urinary tract infection.
--- NOTE | 2023-12-23 15:57 | Hospitalist Progress Note ---
Date of Service December 23, 2023 Assessment & Plan (1) Calculus of distal left ureter: Plan: Obstructive uropathy Left UPJ renal stone Left-sided hydronephrosis Concern for infected stone Patient coming in with acute onset left-sided flank pain, has left cva tender at presentation. Admitting CTAP: 14 mm obstructive calculus at the left UPJ causing moderate left-sided hydronephrosis. Left-sided perinephric fluid suggesting calyceal rupture. Foci of gas within the left renal collecting system suggestive of superimposed urinary tract infection. Urine analysis ? UTI, 12/19 UCx w/ GNB, f/u Bl Cx 12/19 Continue with Zosyn 01/05, c/w probiotic Urology on board, s/p stent, pt improving appropriately as of now. f/u with Urology as an outpatient which is being arranged by Uro. 12/21: POD #2 s/p L Ureteral stent post cysto. She is tolerating her L ureteral stent with minimal discomfort VSS and leukocytosis improving; initially 24.53--> 14.11 Continue IV Zosyn; awaiting ID input Urine and kidney culture growing lovett-sensitive E.Coli x2 without detected resistance markers in the blood Moving towards de-escalation. If no input from ID by end of day today, will switch from IV Zosyn to IV Cefazolin IV Q8. Patient does have rash from ceftriaxone documented. 12/22: POD #3 status post left ureteral pain has improved significantly and is she is able to ambulate without discomfort Leukocytosis continues to improve today 9.68 stent post cystoscopy Yesterday was switched to cefazolin IV Q8; infectious disease telehealth consult performed today Awaiting final susceptibilities on blood cultures Continue Ancef for now and recommended to switch to Augmentin on discharge for total of 14 days. DVT prophylaxis: Heparin SQ. Full code I spent a total of 58 minutes coordinating, documenting, and providing care for this patient excluding time spent in the performance of separately billed services. All of the aforementioned completed while collaborating with the assigned attending physician for a full treatment plan. Please see their addendum for further details. Admission and Anticipated Discharge Date Admission Date: December 20, 2023 Supervising Physician Co-Signing Physician Notes pt seen and examined. urosepsis s/p stent x left Bacteremia pt feels better, de escalate zosyn to cefazolin. ID consult, appreciate recs. repeat bl cx pending Additional 20 min spent in addition to YOUTH PROBATION OFFICER's time. I have seen and examined the patient and have discussed the case with the provider above. I agree with the assessment and plan as stated. Subjective Pt sitting on the bedside in no apparent distress She is feeling a little better than yesterday. She denies LEIJA, dizziness, fever, chills, SOB, chest pain. Feels even more improved from yesterday. Intermittent headache reported. Review of Systems Review of Systems: Neuro: (-) Falls, trauma, slurred speech HEENT: (-) LEIJA, dizziness, dysphagia, visual or auditory changes CV: (-) CP, palpitations, swelling Resp: (-) SOB GI: (-) appetite changes, N/V/D, bowel changes : (-) urinary changes Skin: (-) rashes Psych: (-) anxiety, depression Physical Exam Physical Exam: Neuro: AAOx4, PERRLA, no aphagia, memory changes, CNII-XII grossly intact HEENT: head normocephalic, moist mucus membranes CV: S1/S2, (-) M/G/R, (-) edema, cap refill < 3 seconds Resp: Lungs CTA in all torres. On RA GI: Abdomen S/NT/ND, Ax4 bowel sounds, (-) CVA tenderness Musculoskeletal: 5/5 B/L UE strength, 5/5 B/L LE strength. No gait disturbance Skin: (-) rashes , (-) erythema. Psych: euthymic mood Results & Data Results & Data Vital Signs (Past 12 Hours) Vital Signs Temp Pulse Pulse Resp BP Pulse Ox O2 Del Method 12/23/23 15:00 36.8 C 73 18 97/65 L 95 Room Air 12/23/23 11:07 36.9 C 75 18 105/70 94 Room Air 12/23/23 07:58 37.2 C 72 18 132/83 95 Room Air 12/23/23 07:22 70 Laboratory Results Short CBC 12/23/23 Range/Units 06:10 WBC 9.68 (4.8-10.8) K/ul Hgb 11.3 L (12.0-16.0) g/dl Hct 34.7 L (37.0-47.0) % Plt Count 116 L (130-400) K/uL BMP 12/23/23 06:10 Sodium 138 Potassium 3.4 L Chloride 104 Carbon Dioxide 27 BUN 8 Creatinine 0.59 L Glucose 102 H Calcium 8.5 L
[2023-12-24 06:59] LABS: Hematocrit (blood only) 35.3 % (37.0-47.0); Hemoglobin 11.6 g/dl (12.0-16.0); Mean Corpuscular Hemoglobin 28.6 pg (25.0-34.0); Mean Corpuscular Hgb Conc 32.9 g/dL (32.0-36.0); Mean Corpuscular Volume 87.2 fL (80.0-100.0); Platelet Count 157 K/uL (130-400); RDW Coefficient of Variation 13.7 % (11.5-14.5); RDW Standard Deviation 43.7 fL (36.4-46.3); Red Blood Count 4.05 M/uL (4.20-5.40); White Blood Count 8.03 K/ul (4.8-10.8)
[2023-12-24 07:29] LABS: BUN Creatinine Ratio 17.9 (10-20); Calcium 8.9 mg/dl (8.6-10.3); Creatinine Clr Calc Pharmacy 116.9 ml/min; Est GFR (African American) 118.3 ml/min; Est GFR (Non-African American) 102.1 ml/min; Potassium 3.4 mmol/L (3.5-5.1)
--- NOTE | 2023-12-24 07:46 | Discharge Summary ---
Date of Service December 24, 2023 Admission Exam Per Admitting Provider GENERAL: Alert and oriented x3. NAD, on RA. HEENT: No pallor, no icterus. Pupils equal, round and reactive to light. Oral mucosa moist. NECK: No JVD, no neck masses. HEART: S1 and S2 heard. Regular rate and rhythm. No murmur, no gallop. RESPIRATORY SYSTEM: Normal AP diameter. No accessory muscle use. No wheezing, no crackles. ABDOMEN: Soft, bowel sounds present, left abd tender, no distention. CENTRAL NERVOUS SYSTEM: No facial droop. Speech is clear. Obeys simple commands. Moves extremities. EXTREMITIES: No edema, no erythema seen. Left CVA tenderness +, mild. Principal Diagnosis left flank pain Discharge Exam Neuro: AAOx4, PERRLA, no aphagia, memory changes, CNII-XII grossly intact HEENT: head normocephalic, moist mucus membranes CV: S1/S2, (-) M/G/R, (-) edema, cap refill < 3 seconds Resp: Lungs CTA in all torres. On RA GI: Abdomen S/NT/ND, Ax4 bowel sounds, (-) CVA tenderness Musculoskeletal: 5/5 B/L UE strength, 5/5 B/L LE strength. No gait disturbance Skin: (-) rashes , (-) erythema. Psych: euthymic mood Discharge Data Allergies Allergy/AdvReac Type Severity Reaction Status Date / Time hydromorphone [From Dilaudid] Allergy Severe hallucinati Verified 09/22/19 04:49 ons morphine Allergy Severe Anxiety Verified 09/22/19 04:49 caffeine Allergy Intermediate Hives Verified 09/22/19 04:49 ciprofloxacin Allergy Intermediate Hives Verified 09/22/19 04:49 codeine Allergy Intermediate muscle Verified 09/22/19 04:49 spasms ibuprofen Allergy Intermediate Palpitation Verified 09/22/19 04:49 s acetaminophen [From Percocet] Allergy Mild diaphoretic Verified 09/22/19 04:49 ceftriaxone Allergy Mild rash Verified 09/22/19 04:49 oxycodone [From Percocet] Allergy Mild diaphoretic Verified 09/22/19 04:49 propoxyphene Allergy Mild diaphoresis Verified 09/22/19 04:49 [From Darvocet-N 100] nitrofurantoin Allergy Hives Verified 12/20/23 06:05 sulfamethoxazole Allergy Hives Verified 12/20/23 06:04 [From Bactrim] trimethoprim [From Bactrim] Allergy Hives Verified 12/20/23 06:04 Consultations 12/20/23 07:26 Consult Urology Stat ED Decision to Admit Stat 12/22/23 08:21 Consult Infectious Diseases Routine Procedures Performed Operation Date: 12/20/23 11:00 Actual Procedures p Cystoscopy, Retrograde Pyelogram, Ureteral Stent Insertion-Left(Left) - Romel Bruce MD Ordered Studies 12/20/23 [place] retrograde includes kub Routine 12/20/23 05:21 CT abd pelvis wo con Stat Hospital Course (1) Calculus of distal left ureter: Ms. Barnes was admitted on December 29 with left sided flank pain. An abominal and pelvic CT was performed with results revealing a 14 mm obstructive calculus at the left UPJ causing moderate left-sided hydronephrosis. Left-sided perinephric fluid suggesting calyceal rupture. Foci of gas within the left renal collecting system suggestive of superimposed urinary tract infection. She was evaluated by Urology and underwent a cystoscopy with left ureteral stent placement on 12/19. Initially, she had leukocytosis that initially was 24.53 and has since resolved back to normal 8.03 today upon discharge. Her urine and kidney cultures grew lovett-sensitive E.Coli x2 without detected resistance markers in the blood. She was switched from Zosyn to Cefazolin and will be de-escalated to Augmentin upon discharge today to complete and additional 11 day course of antibiotic coverage. She was evaluated by Infectious Disease as well. She will follow up with her PCP (12/28) and Urology (01/04) upon discharge. A work release has been provided to her clearing her until 12/29. Total Time Total Time Spent Total Time Spent (In Minutes): I spent a total of 62 minutes coordinating, documenting, and providing care for this patient excluding time spent in the performance of separately billed services. All of the aforementioned completed while collaborating with the assigned attending physician for a full treatment plan. Please see their addendum for further details. Discharge Plan Discharge Items Patient Disposition: Home - Self-Care Reason For Visit: LEFT FLANK PAIN Discharge Diagnosis: bacteremia and left flank pain with ureteral stone placement s/p cystoscopy Condition on Discharge: Good Activity: Resume your previous activity Non-emergency contact: Primary Care Provider and Urologist Call non-emergency contact if: you have any medication questions, your symptoms worsen, your pain is not controlled, your pain is worsening, your pain is unusual for you, your pain is concerning for you, you have a fever and your temperature is above 101 Follow-up/Referrals: Deirdre Gauthier CRNP [Nurse Practitioner] - 01/05/24 8:00 am Elise Zhang MD [Primary Care Provider] - 12/29/23 5:40 pm (Date & Time 12/29/2023 5:40 PM Provider Elise Zhang MD Department Family Medicine [facility] ) Diet: Regular Addtl Attending Provider Instructions: You were admitted to the hospital on 12/19 for left lower back discomfort. You had an abdominal and pelvis CT performed results indicating that there was a 14 mm obstructing calculus at the left ureteropelvic junction causing moderate hydronephrosis on your left side. You were seen by urology and underwent a cystoscopy and left ureteral stent placement. You had blood cultures performed and they resulted in gram negative bacilli, and E.Coli and Enterobacterale. You initially were placed on intravenous Zosyn and were switched to intravenous Cefazolin. You were seen by Infectious Disease during your stay who suggested continuation of antibiotics upon your discharge for a total of eleven more days. You will have the following outpatient appointments after your discharge: * PCP Dr. Zhang Thursday 12/28 * Urology Dr. Franco Thursday 01/04 @ 8:00 AM for possible ureteroscopy and lithotripsy. * You have a work release form attached in your discharge instructions clearing you from work until Friday 12/29; unless otherwise extended by your PCP. You will go home on the following new medications: * Augmentin 875mg by mouth twice daily, starting with one pill today and starting twice daily tomorrow 12/24 until completed on Wednesday 01/03 * Continue taking your probiotic daily for one additional week after completing your antibiotic to promote healthy gut ender. [facility] Hospitalist service thanks you kindly for allowing us to take part in your care. Thank you kindly, Divya LUCIANO Pending Studies at Discharge: No Stand-Alone Forms: My [facility], Work/School Release, Smoking Cessation Medications and DC Order Prescriptions: New polyethylene glycol 3350 [Miralax] 17 gram Powder In Packet 17 g PO DAILY PRN (Reason: constipation) Qty: 14 0RF calcium carbonate [Tums] 200 mg calcium (500 mg) Tablet,Chewable 500 mg PO QID PRN (Reason: dyspepsia) Qty: 14 0RF Advanced Probiotic 625 mg (10 billion cell) Capsule 1 cap PO DAILY Qty: 14 0RF acetaminophen [Tylenol Extra Strength] 500 mg Tablet 500 mg PO Q6H PRN (Reason: pain) Qty: 14 0RF amoxicillin-pot clavulanate 875-125 mg tablet 1 tab PO BID Qty: 22 0RF Continued acetaminophen [Tylenol] 325 mg Tablet 650 mg PO DIRECTED ondansetron HCl [Zofran] 4 mg tablet 4 mg PO Q8H PRN (Reason: nausea and vomiting) Qty: 4 0RF Discharge Orders: Discharge Order (Routine); Ordered 12/24/23 Ordered By: Divya Colon Admission Data Admit Date/Time: 12/20/23 07:40 Attending Provider: Noa Guzman Admit Provider: Noa Guzman Primary Care Provider: Elise Zhang Other Providers: Romel Bruce; Rylee Alvarado; Divya Colon I.; Martina Wood; Ariadna Corona; Vivien Campbell; Yina Munguia; Janneth Soto; Ranjit Zavala; Denis Reyes; Suhail Betts; Arjun Gibson; Yesica Bray; Rajeev Bo; Sasha Du; Krystin Bush; Kadi Zaragoza; Neville Donaldson; Lauren Lovell; Noe Milian; Marnie Ocampo I.; John Hurd; Cami Salazar; Noa Guzman; Zana Ontiveros; Todd Gil; Lloyd Merino; Sia Nicolas; Naya Powell; Gena Zapata; Porter Barrett; Lb Ordaz; David Harris; Jay Soto I.; Del Saenz II; Elise Delvalle; Ambrose Mart; Reggie Turner; Rick Neves Other Interventions: Discharge Summary Assessment (RN) Last Done: 12/24/23 13:39 Supervising Physician Co-Signing Physician Notes pt seen and examined. urosepsis s/p stent x left Bacteremia pt feels better, dc on Augment to complete 14 days therapy from neg blood cx. ID consult, appreciate recs. repeat bl cx no growth 48 hours. No CVA angle tenderness on exam today. Additional 20 min spent in addition to STERILE TECH's time. I have seen and examined the patient and have discussed the case with the provider above. I agree with the assessment and plan as stated.
[2023-12-24] MEDS: POTASSIUM CHLORIDE CRTAB 20 MEQ TABCR PO STA (08:25)
== END 2023-12-24 14:35 | disposition home or self-care (01) | DRG 854 ==
LOC: ED 05:08 → 3E 07:40 → 2N 12-21 03:50

== ENCOUNTER 2024-01-13 21:30 | Inpatient (IN) ==
[2024-01-13 22:10] LABS: Basophils # (auto) 0.03 K/uL (0.00-0.20); Basophils % (auto) 0.3 %; Eosinophils # (auto) 0.06 K/uL (0.00-0.50); Eosinophils % (auto) 0.6 %; Hematocrit (blood only) 37.5 % (37.0-47.0); Hemoglobin 12.1 g/dl (12.0-16.0); Immature Granulocytes # (auto) 0.02 K/uL (0.01-0.20); Immature Granulocytes % (auto) 0.2 %; Lymphocytes # (auto) 1.86 K/uL (1.20-3.40); Lymphocytes % (auto) 17.2 %; Mean Corpuscular Hemoglobin 28.4 pg (25.0-34.0); Mean Corpuscular Hgb Conc 32.3 g/dL (32.0-36.0); Mean Platelet Volume 10.9 fL (9.4-12.4); Monocytes # (auto) 1.04 K/uL (0.11-0.59); Monocytes % (auto) 9.6 %; Neutrophils % (auto) 72.1 %; Platelet Count 250 K/uL (130-400); RDW Coefficient of Variation 13.4 % (11.5-14.5); RDW Standard Deviation 42.8 fL (36.4-46.3); Red Blood Count 4.26 M/uL (4.20-5.40); White Blood Count 10.81 K/ul (4.8-10.8)
[2024-01-13 22:11] LABS: Appearance Urine Cloudy (Clear); Bacteria Urine Automated 3+ (None Seen); Bilirubin Urine Negative (Negative); Blood Urine 2+ (Negative); Color Urine Yellow; Epithelial Cell Urine Auto 0-2 /hpf (0-2); Glucose Urine UA Negative (Negative); Ketones Urine Negative (Negative); Leukocyte Esterase Urine 3+ (Negative); Nitrite Urine Positive (Negative); Protein Urine 1+ (Negative); RBC Urine Automated >20 /hpf (0-2); Urobilinogen Urine Negative (Negative); WBC Urine Automated >50 /hpf (0-5)
[2024-01-13 22:26] LABS: Albumin Globulin Ratio 1.4 (0.9-2); Albumin Level 4.3 gm/dl (3.4-5.0); BUN Creatinine Ratio 15.5 (10-20); Bilirubin,Total 0.9 mg/dl (0.2-1.0); Calcium 9.2 mg/dl (8.6-10.3); Est GFR (African American) 108.1 ml/min; Est GFR (Non-African American) 93.2 ml/min; Potassium 3.3 mmol/L (3.5-5.1); Total Protein 7.3 gm/dl (6.0-8.3)
[2024-01-13] MEDS: SODIUM CHLORIDE 0.9% 1,000 ML IV ONE (22:29)
[2024-01-13 22:45] LABS: Influenza A virus by PCR Negative (Neg); Influenza B virus by PCR Negative (Neg); RSV by PCR Negative (Neg); SARS CoV2 RNA(COVID-19) Ceph NEGATIVE (Negative)
[2024-01-13] MEDS: PIPERACILLIN/TAZOBACTAM 4.5 GM in DEXTROSE 5% MINI-B 100 ML IV ONE (23:22)
--- NOTE | 2024-01-14 00:56 | History & Physical Report ---
Date of Service January 14, 2024 Assessment & Plan (1) Complicated UTI (urinary tract infection): Plan: 58-year-old female with past medical history significant for hiatal hernia, recently in the hospital with left UPJ renal stone and left-sided hydronephrosis status post left ureteral stent placement on 12/21 was treated with IV antibiotics culture growing pansensitive E. coli and followed up with urology and plan for left ureteroscopy seems on 01/16/2024 comes because today again she was feeling chills and warm and concerned and came to the hospital and found to have UTI. Hemodynamics are okay. Denies abdominal pain. No burning micturition but Some uncomfortable feeling thinks from the stent. Normal bowel movements. No chest pain or shortness of breath. No cough. No headache. No runny nose or sore throat. Resting comfortably. Complicated UTI Recently was in the hospital with left UPJ renal stone and status post stent placement Plan for left uteroscopy Comes with chills and feeling feverish UA is positive ER started on Zosyn which will be continued Will follow cultures N.p.o. for now IV fluids Continue Flomax Consult urology in a.m. for further recommendations DVT prophylaxis SCDs for now Disposition Medical floor History of Present Illness Chief Complaint: UTI and kidney stone Primary Care Provider: Elise Zhang MD 58-year-old female with past medical history significant for hiatal hernia, recently in the hospital with left UPJ renal stone and left-sided hydronephrosis status post left ureteral stent placement on 12/21 was treated with IV antibiotics culture growing pansensitive E. coli and followed up with urology and plan for left ureteroscopy seems on 01/16/2024 comes because today again she was feeling chills and warm and concerned and came to the hospital and found to have UTI. Hemodynamics are okay. Denies abdominal pain. No burning micturition but Some uncomfortable feeling thinks from the stent. Normal bowel movements. No chest pain or shortness of breath. No cough. No headache. No runny nose or sore throat. Resting comfortably. Past medical history. As mentioned above Past surgical history. Cystoscopy with stent placement cystourethroscopy with lithotripsy appendectomy Social history. No smoking. Alcohol social drinking. No drug use. Family history. Father had throat cancer. Mother had diabetes. Maternal grandfather had heart disorder. Brother had nephrolithiasis. Allergies Allergy/AdvReac Type Severity Reaction Status Date / Time hydromorphone [From Dilaudid] Allergy Severe hallucinati Verified 01/13/24 23:13 ons caffeine Allergy Intermediate Hives Verified 01/13/24 23:13 ciprofloxacin Allergy Intermediate Hives Verified 01/13/24 23:13 nitrofurantoin Allergy Intermediate Hives Verified 01/13/24 23:13 sulfamethoxazole Allergy Intermediate Hives Verified 01/13/24 23:13 [From Bactrim] trimethoprim [From Bactrim] Allergy Intermediate Hives Verified 01/13/24 23:13 ceftriaxone Allergy Mild rash Verified 01/13/24 23:13 morphine AdvReac Severe Anxiety Verified 01/13/24 23:13 codeine AdvReac Intermediate muscle Verified 01/13/24 23:13 spasms ibuprofen AdvReac Intermediate Palpitation Verified 01/13/24 23:13 s oxycodone [From Percocet] AdvReac Mild diaphoretic Verified 01/13/24 23:13 propoxyphene AdvReac Mild diaphoresis Verified 01/13/24 23:13 [From Darvocet-N 100] Home Medications Medication Instructions Recorded Confirmed Type acetaminophen 500 mg tablet 500 mg PO Q6H PRN pain #14 tabs 12/24/23 01/13/24 Rx (Tylenol Extra Strength) calcium carbonate (Tums) 500 mg (2.5 x 200 mg calcium (500 12/24/23 01/13/24 Rx mg)) PO QID PRN dyspepsia #14 tabs tamsulosin 0.4 mg capsule (Flomax) 0.4 mg PO HS kidney stone 01/07/24 01/13/24 History Past Med/Surg History Problem List E coli bacteremia Calculus of distal left ureter Complicated UTI (urinary tract infection) Sepsis Hydronephrosis, left (Acute) Pyelonephritis (Acute) Hypokalemia (Acute) Hydronephrosis (Acute) UTI (urinary tract infection) (Acute) Left ureteral calculus (Acute) Sepsis Medical History Acid reflux Hx of sepsis 12/2023 hospital admission - 2020 x2 hospital admission Complicated UTI (urinary tract infection) "Urine is clear now since last surgery 12/2023" Hiatal hernia Kidney stones Multiple Prediabetes Pt unsure Surgical History S/P cystoscopy with ureteral stent placement 12/2023 Hx of lithotripsy Left Hx of cholecystectomy History of appendectomy Family History Brother Bilateral kidney stones Social History Smoking Status: Never smoker Second Hand Exposure: No; Do You Dip or Chew Tobacco: No; Hx Alcohol Use: Yes Alcohol type: wine Hx Substance Use: No Preferred Language: Urdu Communication Ability: Effective Ultrasound Supervisor Required: No Beliefs That Will Affect Care: None Current Living Situation: Alone Other Information That Helps Us Care for You: No Feels Safe at Home: Yes Safety Concerns: Feels Safe At This Time Assistive Devices: None Review of Systems Review of Systems: All systems reviewed & are unremarkable except as noted in HPI & below Physical Exam Physical Exam: General- Not in distress Head- atraumatic Eyes- PERRL. ENT- oropharynx clear Neck- supple, no JVD. Lungs- clear to auscultation no wheezing or crackles Heart- regular rhythm; no murmur, no gallop. Abdomen- normal bowel sounds, soft, nontender, no distension Extremities- no pretibial edema, no erythema seen Neuro- alert, oriented PERRL, EOMI; no facial palsy; no dysarthria; moves extremities Results & Data Results & Data Vital Signs (Past 12 Hours) Vital Signs Temp Pulse Resp BP Pulse Ox O2 Del Method 01/13/24 22:02 79 01/13/24 21:34 36.8 C 87 20 114/80 95 Room Air Diagnostic Findings Laboratory Results WBC 10.81 K/ul (4.8-10.8) H 01/13/24 21:50 RBC 4.26 M/uL (4.20-5.40) 01/13/24 21:50 Hgb 12.1 g/dl (12.0-16.0) 01/13/24 21:50 Hct 37.5 % (37.0-47.0) 01/13/24 21:50 MCV 88.0 fL (80.0-100.0) 01/13/24 21:50 MCH 28.4 pg (25.0-34.0) 01/13/24 21:50 MCHC 32.3 g/dL (32.0-36.0) 01/13/24 21:50 RDW Std Deviation 42.8 fL (36.4-46.3) 01/13/24 21:50 RDW Coeff of Arlene 13.4 % (11.5-14.5) 01/13/24 21:50 Plt Count 250 K/uL (130-400) 01/13/24 21:50 MPV 10.9 fL (9.4-12.4) 01/13/24 21:50 Immature Gran % (Auto) 0.2 % 01/13/24 21:50 Neut % (Auto) 72.1 % 01/13/24 21:50 Lymph % (Auto) 17.2 % 01/13/24 21:50 [place] % (Auto) 9.6 % 01/13/24 21:50 Eos % (Auto) 0.6 % 01/13/24 21:50 Baso % (Auto) 0.3 % 01/13/24 21:50 Neut # (Auto) 7.80 K/uL (1.40-6.50) H 01/13/24 21:50 Lymph # (Auto) 1.86 K/uL (1.20-3.40) 01/13/24 21:50 [place] # (Auto) 1.04 K/uL (0.11-0.59) H 01/13/24 21:50 Eos # (Auto) 0.06 K/uL (0.00-0.50) 01/13/24 21:50 Baso # (Auto) 0.03 K/uL (0.00-0.20) 01/13/24 21:50 Immature Gran # (Auto) 0.02 K/uL (0.01-0.20) 01/13/24 21:50 Sodium 134 mmol/L (136-145) L 01/13/24 21:50 Potassium 3.3 mmol/L (3.5-5.1) L 01/13/24 21:50 Chloride 101 mmol/L (98-107) 01/13/24 21:50 Carbon Dioxide 24 mmol/L (21-32) 01/13/24 21:50 Anion Gap 9 (3-11) 01/13/24 21:50 BUN 11 mg/dl (6-23) 01/13/24 21:50 Creatinine 0.71 mg/dl (0.6-1.2) 01/13/24 21:50 Est Cr Clr Drug Dosing 89.0 ml/min 01/13/24 21:50 Est GFR ( Amer) 108.1 ml/min 01/13/24 21:50 Est GFR (Non-Af Amer) 93.2 ml/min 01/13/24 21:50 BUN/Creatinine Ratio 15.5 (10-20) 01/13/24 21:50 Glucose 143 mg/dl (70-99(Fasting)) H 01/13/24 21:50 Calcium 9.2 mg/dl (8.6-10.3) 01/13/24 21:50 Total Bilirubin 0.9 mg/dl (0.2-1.0) 01/13/24 21:50 AST 28 U/L (13-39) 01/13/24 21:50 ALT 41 U/L (7-52) 01/13/24 21:50 Alkaline Phosphatase 134 U/L (34-104) H 01/13/24 21:50 Total Protein 7.3 gm/dl (6.0-8.3) 01/13/24 21:50 Albumin 4.3 gm/dl (3.4-5.0) 01/13/24 21:50 Globulin 3.0 gm/dl (2.5-4.0) 01/13/24 21:50 Albumin/Globulin Ratio 1.4 (0.9-2) 01/13/24 21:50 Urine Color Yellow 01/13/24 21:50 Urine Appearance Cloudy (Clear) A 01/13/24 21:50 Urine pH 6.0 (4.5-7.5) 01/13/24 21:50 Ur Specific [place] 1.010 (1.000-1.030) 01/13/24 21:50 Urine Protein 1+ (Negative) H 01/13/24 21:50 Urine Glucose (UA) Negative (Negative) 01/13/24 21:50 Urine Ketones Negative (Negative) 01/13/24 21:50 Urine Blood 2+ (Negative) H 01/13/24 21:50 Urine Nitrite Positive (Negative) A 01/13/24 21:50 Urine Bilirubin Negative (Negative) 01/13/24 21:50 Urine Urobilinogen Negative (Negative) 01/13/24 21:50 Ur Leukocyte Esterase 3+ (Negative) H 01/13/24 21:50 Urine WBC (Auto) >50 /hpf (0-5) H 01/13/24 21:50 Urine RBC (Auto) >20 /hpf (0-2) H 01/13/24 21:50 U Hyaline Cast (Auto) 3-5 /lpf (0-2) H 01/13/24 21:50 U Epithel Cells (Auto) 0-2 /hpf (0-2) 01/13/24 21:50 Urine Bacteria (Auto) 3+ (None Seen) H 01/13/24 21:50 SARS-CoV-2 (PCR) NEGATIVE (Negative) 01/13/24 21:50 Influenza Type A (PCR) Negative (Neg) 01/13/24 21:50 Influenza Type B (PCR) Negative (Neg) 01/13/24 21:50 RSV (RT-PCR) Negative (Neg) 01/13/24 21:50 Code Status & VTE Plan VTE Prophylaxis Plan VTE Prophylaxis will be ordered: Yes
[2024-01-14] MEDS ORDERED: ACETAMINOPHEN 325 MG TAB PO PRN (01:31)
[2024-01-14] MEDS ORDERED: POLYETHYLENE (MIRALAX) 17 GM PACK PO PRN (01:31)
[2024-01-14] MEDS: SODIUM CHLORIDE 0.9% 1,000 ML IV SCH (01:49)
[2024-01-14] MEDS: PIPERACILLIN/TAZOBACTAM 4.5 GM in DEXTROSE 5% MINI-B 100 ML IV SCH (05:18)
[2024-01-14 06:37] LABS: Basophils # (auto) 0.03 K/uL (0.00-0.20); Basophils % (auto) 0.3 %; Eosinophils # (auto) 0.05 K/uL (0.00-0.50); Eosinophils % (auto) 0.5 %; Hematocrit (blood only) 33.7 % (37.0-47.0); Hemoglobin 10.8 g/dl (12.0-16.0); Immature Granulocytes # (auto) 0.04 K/uL (0.01-0.20); Immature Granulocytes % (auto) 0.4 %; Lymphocytes # (auto) 1.27 K/uL (1.20-3.40); Lymphocytes % (auto) 13.5 %; Mean Corpuscular Hemoglobin 28.4 pg (25.0-34.0); Mean Corpuscular Volume 88.7 fL (80.0-100.0); Mean Platelet Volume 11.2 fL (9.4-12.4); Monocytes # (auto) 0.92 K/uL (0.11-0.59); Monocytes % (auto) 9.8 %; Neutrophils % (auto) 75.5 %; Platelet Count 213 K/uL (130-400); RDW Coefficient of Variation 13.4 % (11.5-14.5); RDW Standard Deviation 43.8 fL (36.4-46.3); White Blood Count 9.41 K/ul (4.8-10.8)
[2024-01-14 06:51] LABS: BUN Creatinine Ratio 11.6 (10-20); Calcium 8.3 mg/dl (8.6-10.3); Creatinine Clr Calc Pharmacy 92.1 ml/min; Est GFR (African American) 110.4 ml/min; Est GFR (Non-African American) 95.3 ml/min; Magnesium 1.7 mg/dl (1.7-2.4); Potassium 3.2 mmol/L (3.5-5.1)
--- NOTE | 2024-01-14 07:45 | XRay Report ---
XR KUB/Abdomen 1 view CLINICAL HISTORY: ureteral stent TECHNIQUE: 1 view of the abdomen was obtained. Comparison: Comparison is made to abdomen radiograph 09/22/2019 FINDINGS: Left nephroureteral stent is seen. The osseous structures are grossly unremarkable. The bowel gas pat tern is nonobstructive. A moderate amount of stool is noted within the large bowel. IMPRESSION: Satisfactory positioning of ureteral stent. Previously noted left ureteral stone is not seen on today 's exam. ACT 112: Negative or not required by law. Electronically signed by: Derick Brothers M.D. 01/14/2024 7:43 AM
--- NOTE | 2024-01-14 10:31 | Urology Consultation ---
<Statement entered by Romel Bruce MD - 01/14/24 15:05> I have discussed Ms. Barnes's case with MUSTAPHA Pereyra and agree with the above documentation. Currently receiving antibiotics for urinary tract infection. We will hold off surgical intervention for now. Her stent appears to be in good position and is draining well. CT does not identify any persistent gas in the kidney or suggest any renal abscess. Okay for diet for now, urology will follow along. -Romel Bruce MD. Date of Consultation January 14, 2024 Assessment & Plan (1) Complicated UTI (urinary tract infection): (2) Ureteral stent present: Plan 58 yo/F who is s/p left ureteral stent placement on 12/19 for an infected stone now admitted with complicated UTI. - Tmax 37.7C. Vitals stable. - Labs today show no leukocytosis and normal renal function. - Urine culture prelim gram negative bacilli. - She is voiding spontaneously. Bladder scan PRN. - KUB shows the ureteral stent in appropriate position. - Prior CT imaging (12/19) noted gas within the left collecting system. Will plan for reassessment with CT abdomen pelvis, order placed. - Continue antibiotics and tailor as culture data becomes available. - Continue supportive care. - No plan for acute intervention at this time. Okay for diet today. - Will need to reschedule/postpone her outpatient procedure on 01/16/24 until she has been treated with an appropriate course of antibiotics. - Urology will follow along. Update: - CT A/P reviewed and there is resolution of left collecting system gas from prior CT and the left ureteral stent is in place - Continue antibiotics and supportive care - Urology will follow along. Plan reviewed with Dr. Bruce. History of Present Illness Attending Physician: Noa Guzman MD History of Present Illness This is a 58-year-old female who was recently hospitalized with an obstructing left UPJ stone status post left ureteral stent placement on 12/19. Blood/urine cultures grew pansensitive E. coli and she was treated with Zosyn to cefazolin and discharged with Augmentin for 11 days. She had outpatient follow-up with our service and plan was for left ureteroscopy and stone treatment on 01/16/24. She returned to the ED on 01/13/24 due to chills/shakes and feeling feverish at home. In the ED she was afebrile and hemodynamically stable. Labs showing a mild leukocytosis of 10.81 and normal renal function. Urinalysis with 2+ blood, positive nitrite, 3+ LE, 3+ bacteria. Urine culture collected and pending. She is on IV Zosyn. KUB shows satisfactory positioning of the left ureteral stent. She is admitted to medicine service. Urology consulted for complicated UTI. Patient seen at bedside today. Awake, resting in bed on arrival. No acute distress. She has been NPO. Tolerating the stent with minimal bother. She does report some occasional discomfort. Denies fever, chills, nausea, vomiting at present. Voiding without issue. Allergies Allergy/AdvReac Type Severity Reaction Status Date / Time hydromorphone [From Dilaudid] Allergy Severe hallucinati Verified 01/13/24 23:13 ons caffeine Allergy Intermediate Hives Verified 01/13/24 23:13 ciprofloxacin Allergy Intermediate Hives Verified 01/13/24 23:13 nitrofurantoin Allergy Intermediate Hives Verified 01/13/24 23:13 sulfamethoxazole Allergy Intermediate Hives Verified 01/13/24 23:13 [From Bactrim] trimethoprim [From Bactrim] Allergy Intermediate Hives Verified 01/13/24 23:13 ceftriaxone Allergy Mild rash Verified 01/13/24 23:13 morphine AdvReac Severe Anxiety Verified 01/13/24 23:13 codeine AdvReac Intermediate muscle Verified 01/13/24 23:13 spasms ibuprofen AdvReac Intermediate Palpitation Verified 01/13/24 23:13 s oxycodone [From Percocet] AdvReac Mild diaphoretic Verified 01/13/24 23:13 propoxyphene AdvReac Mild diaphoresis Verified 01/13/24 23:13 [From Darvocet-N 100] Home Medications Medication Instructions Recorded Confirmed Type acetaminophen 500 mg tablet 500 mg PO Q6H PRN pain #14 tabs 12/24/23 01/13/24 Rx (Tylenol Extra Strength) calcium carbonate (Tums) 500 mg (2.5 x 200 mg calcium (500 12/24/23 01/13/24 Rx mg)) PO QID PRN dyspepsia #14 tabs tamsulosin 0.4 mg capsule (Flomax) 0.4 mg PO HS kidney stone 01/07/24 01/13/24 History Patient History Medical History Acid reflux Hx of sepsis 12/2023 hospital admission - 2020 x2 hospital admission Complicated UTI (urinary tract infection) "Urine is clear now since last surgery 12/2023" Hiatal hernia Kidney stones Multiple Prediabetes Pt unsure Surgical History S/P cystoscopy with ureteral stent placement 12/2023 Hx of lithotripsy Left Hx of cholecystectomy History of appendectomy Family History Brother Bilateral kidney stones Social History Smoking Status: Never smoker Second Hand Exposure: No; Do You Dip or Chew Tobacco: No; Hx Alcohol Use: Yes Alcohol type: wine Hx Substance Use: No Preferred Language: Japanese Communication Ability: Effective Psychologist Educational Required: No Beliefs That Will Affect Care: None Current Living Situation: Alone Other Information That Helps Us Care for You: No Feels Safe at Home: Yes Safety Concerns: Feels Safe At This Time Assistive Devices: None Review of Systems Review of Systems: All systems reviewed & are unremarkable except as noted in HPI & below Physical Exam Constitutional: no acute distress Respiratory: no respiratory distress and no labored breathing Musculoskeletal: Head/Neck/Chest: normocephalic Skin: No visible rashes or lesions to exposed skin areas Neurologic: moves all extremities and awake Psychiatric: A+Ox3, euthymic affect Results & Data Vital Signs (Past 12 Hours) Vital Signs Temp Pulse Pulse Pulse Resp BP BP 01/14/24 07:21 37.7 C H 81 18 108/69 01/14/24 01:10 36.7 C 74 16 144/85 H 01/14/24 01:00 73 18 144/84 H 01/14/24 00:37 64 18 135/79 01/13/24 22:02 79 01/13/24 21:34 36.8 C 87 20 114/80 Pulse Ox O2 Del Method 01/14/24 07:21 94 Room Air 01/14/24 01:10 97 Room Air 01/14/24 01:00 98 Room Air 01/14/24 00:37 96 Room Air 01/13/24 22:02 01/13/24 21:34 95 Room Air PG Care Time/CCT Total # of Minutes Spent Total Time Spent with Patient: Total time spent is greater than 50% in coordination of care (as documented) at patient's floor/unit and/or counseling patient: Coding Level of Care Code 65103 IN/OBS CONSULT LVL 3,45M Diagnoses Complicated UTI (urinary tract infection) N39.0 Ureteral stent present Z96.0
--- NOTE | 2024-01-14 12:02 | CT Scan Report ---
CT OF THE ABDOMEN AND PELVIS WITHOUT CONTRAST CLINICAL HISTORY: complicated UTI, prior CT w/gas in collecting system. COMPARISON STUDY: CT of the abdomen pelvis December 20, 2023. KUB January 14, 2024. TECHNIQUE: Axial images of the abdomen and pelvis were obtained without IV contrast. Images were revi ewed in the axial, sagittal, and coronal planes. Automated exposure control was utilized for the shabana dy. A dose lowering technique was utilized adhering to the principles of ALARA. FINDINGS: A left ureteral stent is well positioned. There is been slight distal migration of a 1.2 x 0.7 cm left ureteropelvic junction calculus. No additional ureteral calculi are present. There is per sistent moderate left hydronephrosis, similar to prior exam. Gas within the left collecting system hines s resolved. Left perinephric stranding and fluid has improved. Multiple small additional bilateral re nal calculi are present. There is no right hydronephrosis. Suspected right-sided parapelvic cysts are present. Evaluation of the remainder of the abdomen and pelvis is suboptimal on this unenhanced exam . Liver, spleen, adrenal glands and pancreas are unremarkable. There is no biliary ductal dilatation status post cholecystectomy. There is no evidence for a bowel obstruction. IMPRESSION: 1. Interval placement of a left ureteral stent. Persistent moderate left hydronephrosis. Slight dista l migration of a 1.2 x 0.7 cm left ureteropelvic junction calculus. 2. Resolution of left collecting system gas. Interval improvement in left perinephric fluid and stran ding. 3. Bilateral nephrolithiasis. ACT 112: Negative or not required by law. Electronically signed by: Marcelo Bains M.D. 01/14/2024 12:00 PM
[2024-01-14] MEDS: POTASSIUM CHLORIDE CRTAB 20 MEQ TABCR PO STA (12:03)
--- NOTE | 2024-01-14 13:17 | Communication Note ---
Date of Service: January 14, 2024 Patient was seen and examined at bedside 58-year-old lady with PMH of hiatal hernia, recently in the hospital with left UPJ renal stone and left-sided hydronephrosis is status post left ureteral stent placement on 12/21 and was treated with IV antibiotic for E. coli UTI [transition to oral antibiotic on discharge], with a plan for left ureteroscopy on 01/16/2024 presented 01/12/2022 for at ED with co feeling of chills/warm and found to have UTI in the ED. Patient has history of going into sepsis frequently iso UTI. Hence she was concerned and presented to ED. She is being managed for the following: Complicated UTI (urinary tract infection): Recently was in the hospital with left UPJ renal stone and status post stent placement, was treated for UTI. Plan for left uteroscopy was monique on 01/16/2024 (pt admitted 01/12). Comes with chills and feeling feverish 01/12. 01/13 CTAP: Interval placement of a left ureteral stent. Persistent moderate left hydronephrosis. Slight distal migration of a 1.2 x 0.7 cm left ureteropelvic junction calculus. Resolution of left collecting system gas. Interval improvement in left perinephric fluid and stranding. Bilateral nephrolithiasis. UA is positive in ED c/w zosyn 01/13, follow urine Cx 01/12 Continue Flomax Uro evaluating, await recs. DVT prophylaxis: SCDs for now Disposition: Medical floor For detailed information on the patient, refer to today's H&P note.
[2024-01-14] MEDS: ADVANCED PROBIOTIC 625 MG CAPSULE PO SCH (14:20)
[2024-01-14] MEDS: TAMSULOSIN HCL 0.4 MG CAP PO SCH (19:35)
[2024-01-15 07:21] LABS: Hematocrit (blood only) 33.2 % (37.0-47.0); Hemoglobin 10.6 g/dl (12.0-16.0); Mean Corpuscular Hgb Conc 31.9 g/dL (32.0-36.0); Mean Corpuscular Volume 87.8 fL (80.0-100.0); Mean Platelet Volume 11.4 fL (9.4-12.4); Platelet Count 202 K/uL (130-400); RDW Coefficient of Variation 13.3 % (11.5-14.5); RDW Standard Deviation 43.1 fL (36.4-46.3); Red Blood Count 3.78 M/uL (4.20-5.40); White Blood Count 6.18 K/ul (4.8-10.8)
[2024-01-15 07:56] LABS: BUN Creatinine Ratio 11.9 (10-20); Calcium 8.7 mg/dl (8.6-10.3); Creatinine Clr Calc Pharmacy 94.8 ml/min; Est GFR (African American) 111.5 ml/min; Est GFR (Non-African American) 96.2 ml/min; Magnesium 1.8 mg/dl (1.7-2.4); Phosphorus 2.8 mg/dl (2.5-4.9); Potassium 3.6 mmol/L (3.5-5.1)
--- NOTE | 2024-01-15 13:13 | Urology Progress Note ---
<Statement entered by Romel Bruce MD - 01/16/24 06:36> I have discussed Ms. Barnes's case with MUSTAPHA Harry and agree with the above documentation. Will hold off intervention in the short-term due to acute UTI. We will plan to reschedule her ureteroscopy and stone removal in approximately 1-2 weeks -Romel Bruce MD. Date of Service January 15, 2024 Assessment & Plan (1) Complicated UTI (urinary tract infection): (2) Ureteral stent present: Plan 58 yo/F who is s/p left ureteral stent placement on 12/19 for an infected stone now admitted with complicated UTI. - Vital signs stable - Labs today show no leukocytosis and normal renal function. - Urine culture positive for E. coli - She is voiding spontaneously. Bladder scan PRN. - KUB shows the ureteral stent in appropriate position. - Continue antibiotics per primary team - Continue supportive care. - No plan for acute intervention at this time. - Will need to arrange reschedule of her cystoscopy, left ureteroscopy with stone removal outpatient. She will likely be on 2 weeks of Augmentin and we will try to reschedule during this timeframe. (Temporarily rescheduling for 01/21) - Urology will follow peripherally Admission and Anticipated Discharge Date Admission Date: January 14, 2024 Subjective Patient resting comfortably in chair Denies dysuria, gross hematuria, fevers, chills, nausea, and vomiting. Baseline urinary symptoms Denying any other acute urological concerns Review of Systems Constitutional: as per Subjective / HPI Genitourinary: as per Subjective / HPI Physical Exam 2 Constitutional: well developed and well nourished; no acute distress Respiratory: normal respiratory effort and able to speak in complete sentences Musculoskeletal: Extremities: extremities normal to inspection Psychiatric: Orientation: alert and oriented x 3 Results & Data Vital Signs (Past 12 Hours) Vital Signs Temp Pulse Resp BP Pulse Ox O2 Del Method 01/15/24 08:02 37.0 C 65 18 110/74 94 Room Air PG Care Time/CCT Total # of Minutes Spent Total Time Spent with Patient: Total time spent is greater than 50% in coordination of care (as documented) at patient's floor/unit and/or counseling patient: Coding Level of Care Code 11231 SUB INP/OBS CARE 07/03MIN Diagnoses Complicated UTI (urinary tract infection) N39.0 Ureteral stent present Z96.0
--- NOTE | 2024-01-15 16:01 | Hospitalist Progress Note ---
Date of Service January 15, 2024 Assessment & Plan (1) Complicated UTI (urinary tract infection): Plan 58-year-old lady with PMH of hiatal hernia, recently in the hospital with left UPJ renal stone and left-sided hydronephrosis is status post left ureteral stent placement on 12/21 and was treated with IV antibiotic for E. coli UTI [transition to oral antibiotic on discharge], with a plan for left ureteroscopy on 01/16/2024 presented 01/12/2022 for at ED with co feeling of chills/warm and found to have UTI in the ED. Patient has history of going into sepsis frequently iso UTI. Hence she was concerned and presented to ED. She is being managed for the following: Complicated UTI (urinary tract infection): Recently was in the hospital with left UPJ renal stone and status post stent placement, was treated for UTI. Plan for left uteroscopy was monique on 01/16/2024 (pt admitted 01/12). Comes with chills and feeling feverish 01/12. 01/13 CTAP: Interval placement of a left ureteral stent. Persistent moderate left hydronephrosis. Slight distal migration of a 1.2 x 0.7 cm left ureteropelvic junction calculus. Resolution of left collecting system gas. Interval improvement in left perinephric fluid and stranding. Bilateral nephrolithiasis. UA is positive in ED, UCx reviewed. c/w zosyn 01/13, to po atb from fady Continue Flomax Uro evaled, appreciate recs. f/u w/ uro on dc for definitive stone Rx. DVT prophylaxis: SCDs for now Disposition: Medical floor Admission and Anticipated Discharge Date Admission Date: January 14, 2024 Subjective Patient was seen and examined at bedside. Patient was sitting up in chair, on room air, NAD, resting comfortably. Patient denies dysuria or abdominal pain, reports urine getting more clear. Patient reports eating okay move bowels okay. Physical Exam Physical Exam: General- Not in distress Head- atraumatic Eyes- PERRL. ENT- oropharynx clear Neck- supple, no JVD. Lungs- clear to auscultation no wheezing or crackles Heart- regular rhythm; no murmur, no gallop. Abdomen- normal bowel sounds, soft, nontender, no distension Extremities- no pretibial edema, no erythema seen Neuro- alert, oriented PERRL, EOMI; no facial palsy; no dysarthria; moves extremities Results & Data Results & Data Vital Signs (Past 12 Hours) Vital Signs Temp Pulse Resp BP Pulse Ox O2 Del Method 01/15/24 08:02 37.0 C 65 18 110/74 94 Room Air
[2024-01-15] MEDS: HEPARIN SOD 5,000 UNIT/0.5 ML VIAL SQ SCH (21:13)
[2024-01-15] MEDS: CALCIUM CARBONATE 500 MG CHEWABLE TAB PO PRN (21:14)
[2024-01-15 21:47] VITALS: BP 122/80; PULSE 67; RESP 16; TEMP 98.1; O2SAT 97
--- NOTE | 2024-01-16 07:37 | Emergency Department Note ---
Impression & Plan Calculus of distal left ureter, UTI (urinary tract infection), S/P ureteral stent placement ED Provider Note CHIEF COMPLAINT: Low-grade fever HISTORY OF PRESENT ILLNESS: This 58-year-old female with past medical history of septic kidney stone and recent hospitalization status post stent, presents to the emergency department with complaints of a low-grade fever. She has not been feeling well for about 24 hours. She took a home COVID test that was negative. Patient recently completed a course of Augmentin after her hospitalization. patient has been having some nausea, but no vomiting. She denies any significant pain. She has noticed that the urine has been discolored. REVIEW OF SYSTEMS: A review of systems was performed with positives and pertinent negatives listed in the history of present illness. 10 systems were reviewed and are otherwise negative. ALLERGIES: see below MEDICATIONS: see below PMH: see below SOCIAL HISTORY: see below DDx: UTI/pyelonephritis, hematuria, viral etiology, ureteral stent dislodgment, pneumonia among others. PHYSICAL EXAM: Vital signs reviewed. General: Well-appearing 58-year-old female, in no significant distress. HEENT: No scleral icterus, PERRLA, neck supple. moist mucous membranes Cardiovascular: Regular rate and rhythm, no extra sounds. Pulmonary: Clear to auscultation bilaterally, normal work of breathing. Abdomen: Soft, nontender, nondistended, positive bowel sounds. no CVA tenderness. Musculoskeletal: Atraumatic, no peripheral edema. Neurologic: Patient awake alert and oriented x 3, speech is clear Skin: Warm, dry, no rash EMERGENCY DEPARTMENT COURSE/MDM: This patient was evaluated and appeared to be in no significant distress. IV access was obtained and laboratory work was drawn. The patient was placed on the shelter monitor noted to be in a normal sinus rhythm. She was hydrated with normal saline solution. patient's past medical records were reviewed. Patient's laboratory work is reassuring. UA is concerning for infection and will be sent for culture. Patient was covered with IV Zosyn. KUB was performed and reveals the left ureteral stent in good position. [facility]. The patient was advised of the findings and plan and agreed. MONITORING: An order for cardiac monitoring was placed and the patient is noted to be in a normal sinus rhythm at 67 beats per minute. RADIOLOGY: KUB to my interpretation reveals left ureteral stent in proper position. DISPOSITION: Admission Past Med/Surg History Problem List (Updated 01/18/24 @ 08:52 by Oriana Bernard MD) S/P ureteral stent placement (Acute) Ureteral stent present E coli bacteremia Calculus of distal left ureter (Acute) Complicated UTI (urinary tract infection) Sepsis Hydronephrosis, left (Acute) Pyelonephritis (Acute) Hypokalemia (Acute) Hydronephrosis (Acute) UTI (urinary tract infection) (Acute) Left ureteral calculus (Acute) Sepsis Medical History Acid reflux Hx of sepsis 12/2023 hospital admission - 2020 x2 hospital admission Complicated UTI (urinary tract infection) "Urine is clear now since last surgery 12/2023" Hiatal hernia Kidney stones Multiple Prediabetes Pt unsure Surgical History S/P cystoscopy with ureteral stent placement 12/2023 Hx of lithotripsy Left Hx of cholecystectomy History of appendectomy Family History Brother Bilateral kidney stones Social History Smoking Status: Never smoker Second Hand Exposure: No; Do You Dip or Chew Tobacco: No; Tobacco Cessation Education Requested by Patient: No Hx Alcohol Use: Yes Alcohol type: wine Hx Substance Use: No Preferred Language: Georgian Communication Ability: Effective Profiler Operator Required: No Beliefs That Will Affect Care: None Current Living Situation: Alone Other Information That Helps Us Care for You: No Feels Safe at Home: Yes Safety Concerns: Feels Safe At This Time Assistive Devices: None Allergies Allergies Allergy/AdvReac Type Severity Reaction Status Date / Time hydromorphone [From Dilaudid] Allergy Severe hallucinati Verified 01/13/24 23:13 ons caffeine Allergy Intermediate Hives Verified 01/13/24 23:13 ciprofloxacin Allergy Intermediate Hives Verified 01/13/24 23:13 nitrofurantoin Allergy Intermediate Hives Verified 01/13/24 23:13 sulfamethoxazole Allergy Intermediate Hives Verified 01/13/24 23:13 [From Bactrim] trimethoprim [From Bactrim] Allergy Intermediate Hives Verified 01/13/24 23:13 ceftriaxone Allergy Mild rash Verified 01/13/24 23:13 morphine AdvReac Severe Anxiety Verified 01/13/24 23:13 codeine AdvReac Intermediate muscle Verified 01/13/24 23:13 spasms ibuprofen AdvReac Intermediate Palpitation Verified 01/13/24 23:13 s oxycodone [From Percocet] AdvReac Mild diaphoretic Verified 01/13/24 23:13 propoxyphene AdvReac Mild diaphoresis Verified 01/13/24 23:13 [From Darvocet-N 100] Home Meds Home Medications Medication Instructions Recorded Confirmed tamsulosin 0.4 mg capsule (Flomax) 0.4 mg PO HS kidney stone 01/07/24 01/13/24 Previous Rx's Medication Instructions Recorded acetaminophen 500 mg tablet 500 mg PO Q6H PRN pain #14 tabs 12/24/23 (Tylenol Extra Strength) calcium carbonate (Tums) 500 mg (2.5 x 200 mg calcium (500 12/24/23 mg)) PO QID PRN dyspepsia #14 tabs L.acidop,casei,lactis,rham-B.lact,everardo 1 cap PO DAILY 2 weeks #14 caps 01/16/24 625 mg (10 billion cell) capsule (Advanced Probiotic) amoxicillin 875 mg-potassium 1 tab PO BID 12 days #24 tabs 01/16/24 clavulanate 125 mg tablet Results & Data (ED) Home Medications Current Medication List: was personally reviewed by me Laboratory Data Attestation: I reviewed the patient's lab results. 01/15/24 06:44 01/15/24 06:44 Lab Results 01/13/24 Range/Units 21:50 WBC 10.81 H (4.8-10.8) K/ul RBC 4.26 (4.20-5.40) M/uL Hgb 12.1 (12.0-16.0) g/dl Hct 37.5 (37.0-47.0) % MCV 88.0 (80.0-100.0) fL MCH 28.4 (25.0-34.0) pg MCHC 32.3 (32.0-36.0) g/dL RDW Std Deviation 42.8 (36.4-46.3) fL RDW Coeff of Arlene 13.4 (11.5-14.5) % Plt Count 250 (130-400) K/uL MPV 10.9 (9.4-12.4) fL Immature Gran % (Auto) 0.2 % Neut % (Auto) 72.1 % Lymph % (Auto) 17.2 % [place] % (Auto) 9.6 % Eos % (Auto) 0.6 % Baso % (Auto) 0.3 % Neut # (Auto) 7.80 H (1.40-6.50) K/uL Lymph # (Auto) 1.86 (1.20-3.40) K/uL [place] # (Auto) 1.04 H (0.11-0.59) K/uL Eos # (Auto) 0.06 (0.00-0.50) K/uL Baso # (Auto) 0.03 (0.00-0.20) K/uL Immature Gran # (Auto) 0.02 (0.01-0.20) K/uL Sodium 134 L (136-145) mmol/L Potassium 3.3 L (3.5-5.1) mmol/L Chloride 101 (98-107) mmol/L Carbon Dioxide 24 (21-32) mmol/L Anion Gap 9 (3-11) BUN 11 (6-23) mg/dl Creatinine 0.71 (0.6-1.2) mg/dl Est Cr Clr Drug Dosing 89.0 ml/min Est GFR ( Amer) 108.1 ml/min Est GFR (Non-Af Amer) 93.2 ml/min BUN/Creatinine Ratio 15.5 (10-20) Glucose 143 H (70-99(Fasting)) mg/dl Calcium 9.2 (8.6-10.3) mg/dl Total Bilirubin 0.9 (0.2-1.0) mg/dl AST 28 (13-39) U/L ALT 41 (7-52) U/L Alkaline Phosphatase 134 H (34-104) U/L Total Protein 7.3 (6.0-8.3) gm/dl Albumin 4.3 (3.4-5.0) gm/dl Globulin 3.0 (2.5-4.0) gm/dl Albumin/Globulin Ratio 1.4 (0.9-2) Urine Color Yellow Urine Appearance Cloudy A (Clear) Urine pH 6.0 (4.5-7.5) Ur Specific [place] 1.010 (1.000-1.030) Urine Protein 1+ H (Negative) Urine Glucose (UA) Negative (Negative) Urine Ketones Negative (Negative) Urine Blood 2+ H (Negative) Urine Nitrite Positive A (Negative) Urine Bilirubin Negative (Negative) Urine Urobilinogen Negative (Negative) Ur Leukocyte Esterase 3+ H (Negative) Urine WBC (Auto) >50 H (0-5) /hpf Urine RBC (Auto) >20 H (0-2) /hpf U Hyaline Cast (Auto) 3-5 H (0-2) /lpf U Epithel Cells (Auto) 0-2 (0-2) /hpf Urine Bacteria (Auto) 3+ H (None Seen) SARS-CoV-2 (PCR) NEGATIVE (Negative) Influenza Type A (PCR) Negative (Neg) Influenza Type B (PCR) Negative (Neg) RSV (RT-PCR) Negative (Neg) Administered Medications Discontinued Medications Calcium Carbonate (Calcium Carbonate 500 Mg Chewable Tab) 500 mg PO QID PRN PRN Reason: dyspepsia Stop: 02/13/24 01:30 Last Admin: 01/15/24 21:14 Dose: 500 mg Documented By: ALONDRA Heparin Sodium (Porcine) (Heparin Sod 5,000 Unit/0.5 Ml Vial) 5,000 units SQ Q12 CHRIS Stop: 02/14/24 20:59 Last Admin: 01/16/24 07:46 Dose: Not Given Documented By: [facility] [place]: 01/15/24 21:13 Dose: Not Given Documented By: ALONDRA Sodium Chloride (Nss) 1,000 mls @ 999 mls/hr IV .Q1H1M ONE Stop: 01/13/24 23:06 Last Infusion: 01/13/24 23:30 Dose: Infused Documented By: Admin: 01/13/24 22:29 Dose: 999 mls/hr Documented By: DINAH Piperacillin Sod/Tazobactam (Sod 4.5 gm/ Dextrose) 100 mls @ 200 mls/hr IV NOW ONE; Protocol Stop: 01/13/24 23:24 Last Infusion: 01/13/24 23:52 Dose: Infused Documented By: Admin: 01/13/24 23:22 Dose: 200 mls/hr Documented By: DINAH Sodium Chloride (Nss) 1,000 mls @ 100 mls/hr IV .Q10H CHRIS Stop: 02/13/24 01:30 Last Infusion: 01/14/24 13:34 Dose: Infused Documented By: Admin: 01/14/24 11:32 Dose: 100 mls/hr Documented By: Infusion: 01/14/24 11:32 Dose: Infused Documented By: Admin: 01/14/24 01:49 Dose: 100 mls/hr Documented By: ROBERTA Piperacillin Sod/Tazobactam (Sod 4.5 gm/ Dextrose) 100 mls @ 25 mls/hr IV Q8H CHRIS; Protocol Stop: 01/24/24 05:59 Last Infusion: 01/16/24 10:02 Dose: Infused Documented By: Admin: 01/16/24 05:35 Dose: 25 mls/hr Documented By: Infusion: 01/16/24 01:21 Dose: Infused Documented By: Admin: 01/15/24 21:19 Dose: 25 mls/hr Documented By: Infusion: 01/15/24 18:23 Dose: Infused Documented By: Admin: 01/15/24 14:21 Dose: 25 mls/hr Documented By: Infusion: 01/15/24 09:33 Dose: Infused Documented By: Admin: 01/15/24 05:06 Dose: 25 mls/hr Documented By: Infusion: 01/15/24 02:00 Dose: Infused Documented By: Admin: 01/14/24 21:43 Dose: 25 mls/hr Documented By: Infusion: 01/14/24 19:31 Dose: Infused Documented By: Admin: 01/14/24 15:27 Dose: 25 mls/hr Documented By: Infusion: 01/14/24 09:03 Dose: Infused Documented By: Admin: 01/14/24 05:18 Dose: 25 mls/hr Documented By: ROBERTA Lactobacillus Acidophilus (Advanced Probiotic 625 Mg Capsule) 1,250 mg PO DAILY CHRIS Stop: 02/13/24 13:14 Last Admin: 01/16/24 07:45 Dose: 1,250 mg Documented By: Admin: 01/15/24 09:08 Dose: 1,250 mg Documented By: Admin: 01/14/24 14:20 Dose: 1,250 mg Documented By: DONTAE Potassium Chloride (Potassium Chloride Crtab 20 Meq Tabcr) 40 meq PO NOW STA Stop: 01/14/24 08:55 Last Admin: 01/14/24 12:03 Dose: 40 meq Documented By: DONTAE Tamsulosin HCl (Tamsulosin Hcl 0.4 Mg Cap) 0.4 mg PO HS CHRIS Stop: 02/13/24 20:59 Last Admin: 01/15/24 21:14 Dose: 0.4 mg Documented By: MLShlomo Admin: 01/14/24 19:35 Dose: 0.4 mg Documented By: TKB Imaging Data Radiologist's Impression: KUB X-Ray 01/13/24 23:46 XR KUB/Abdomen 1 view CLINICAL HISTORY: ureteral stent TECHNIQUE: 1 view of the abdomen was obtained. Comparison: Comparison is made to abdomen radiograph 09/22/2019 FINDINGS: Left nephroureteral stent is seen. The osseous structures are grossly unremarkable. The bowel gas pattern is nonobstructive. A moderate amount of stool is noted within the large bowel. IMPRESSION: Satisfactory positioning of ureteral stent. Previously noted left ureteral stone is not seen on today's exam. ACT 112: Negative or not required by law. Electronically signed by: Derick Brothers M.D. 01/14/2024 7:43 AM Discharge Plan Visit Data Chief Complaint: Flu Like Symptoms Stated Complaint: CHILLS, POSSIBLE FEVER/INFECTION ED Provider: Oriana Bernard Discharge Problem: Calculus of distal left ureter, UTI (urinary tract infection), S/P ureteral stent placement Patient Disposition: Admitted As Inpatient Discharge Instructions Interventions: ED Discharge Assessment Last Done: 01/14/24 01:08 Discharge Problem: UTI (urinary tract infection) Qualifiers: Urinary tract infection type: acute cystitis Hematuria presence: with hematuria Qualified Code(s): N30.01 - Acute cystitis with hematuria
--- NOTE | 2024-01-16 10:43 | Discharge Summary ---
Date of Service January 16, 2024 Admission HPI Per Admitting Provider 58-year-old female with past medical history significant for hiatal hernia, recently in the hospital with left UPJ renal stone and left-sided hydronephrosis status post left ureteral stent placement on 12/21 was treated with IV antibiotics culture growing pansensitive E. coli and followed up with urology and plan for left ureteroscopy seems on 01/16/2024 comes because today again she was feeling chills and warm and concerned and came to the hospital and found to have UTI. Hemodynamics are okay. Denies abdominal pain. No burning micturition but Some uncomfortable feeling thinks from the stent. Normal bowel movements. No chest pain or shortness of breath. No cough. No headache. No runny nose or sore throat. Resting comfortably. Past medical history. As mentioned above Past surgical history. Cystoscopy with stent placement cystourethroscopy with lithotripsy appendectomy Social history. No smoking. Alcohol social drinking. No drug use. Family history. Father had throat cancer. Mother had diabetes. Maternal grandfather had heart disorder. Brother had nephrolithiasis. Admission Exam Per Admitting Provider General- Not in distress Head- atraumatic Eyes- PERRL. ENT- oropharynx clear Neck- supple, no JVD. Lungs- clear to auscultation no wheezing or crackles Heart- regular rhythm; no murmur, no gallop. Abdomen- normal bowel sounds, soft, nontender, no distension Extremities- no pretibial edema, no erythema seen Neuro- alert, oriented PERRL, EOMI; no facial palsy; no dysarthria; moves extremities Principal Diagnosis Complicated UTI Discharge Exam General- Not in distress Head- atraumatic Eyes- PERRL. ENT- oropharynx clear Neck- supple, no JVD. Lungs- clear to auscultation no wheezing or crackles Heart- regular rhythm; no murmur, no gallop. Abdomen- normal bowel sounds, soft, nontender, no distension Extremities- no pretibial edema, no erythema seen Neuro- alert, oriented PERRL, EOMI; no facial palsy; no dysarthria; moves extremities Discharge Data Allergies Allergy/AdvReac Type Severity Reaction Status Date / Time hydromorphone [From Dilaudid] Allergy Severe hallucinati Verified 01/13/24 23:13 ons caffeine Allergy Intermediate Hives Verified 01/13/24 23:13 ciprofloxacin Allergy Intermediate Hives Verified 01/13/24 23:13 nitrofurantoin Allergy Intermediate Hives Verified 01/13/24 23:13 sulfamethoxazole Allergy Intermediate Hives Verified 01/13/24 23:13 [From Bactrim] trimethoprim [From Bactrim] Allergy Intermediate Hives Verified 01/13/24 23:13 ceftriaxone Allergy Mild rash Verified 01/13/24 23:13 morphine AdvReac Severe Anxiety Verified 01/13/24 23:13 codeine AdvReac Intermediate muscle Verified 01/13/24 23:13 spasms ibuprofen AdvReac Intermediate Palpitation Verified 01/13/24 23:13 s oxycodone [From Percocet] AdvReac Mild diaphoretic Verified 01/13/24 23:13 propoxyphene AdvReac Mild diaphoresis Verified 01/13/24 23:13 [From Darvocet-N 100] Consultations 01/13/24 23:59 ED Decision to Admit Stat 01/14/24 08:00 Consult Urology Routine Ordered Studies 01/14/24 10:33 CT abd pelvis wo con Routine Hospital Course (1) Complicated UTI (urinary tract infection): Plan 58-year-old lady with PMH of hiatal hernia, recently in the hospital with left UPJ renal stone and left-sided hydronephrosis is status post left ureteral stent placement on 12/21 and was treated with IV antibiotic for E. coli UTI [transition to oral antibiotic on discharge], with a plan for left ureteroscopy on 01/16/2024 presented 01/12/2022 for at ED with co feeling of chills/warm and found to have UTI in the ED. Patient has history of going into sepsis frequently iso UTI. Hence she was concerned and presented to ED. She was managed for the following: Complicated UTI (urinary tract infection): Recently was in the hospital with left UPJ renal stone and status post stent placement, was treated for UTI. Plan for left uteroscopy was monique on 01/16/2024 (pt admitted 01/12). Comes with chills and feeling feverish 01/12. 01/13 CTAP: Interval placement of a left ureteral stent. Persistent moderate left hydronephrosis. Slight distal migration of a 1.2 x 0.7 cm left ureteropelvic junction calculus. Resolution of left collecting system gas. Interval improvement in left perinephric fluid and stranding. Bilateral nephrolithiasis. UA is positive in ED, UCx reviewed. zosyn 8/ --> Augmentin on DC to complete 14 day course. Continue Flomax Uro evaled, appreciate recs. f/u w/ uro on dc for definitive stone Rx. DVT prophylaxis: SCDs for now Disposition: Medical floor Patient is being discharged to home with following instruction at the point of discharge: Follow-up with your primary care physician within a week time and likely you will need labs CBC/CMP/magnesium/phosphorus. Complete the antibiotic to complete 14-day course. You will need to follow-up with urology for cystoscopy and left ureteroscopy with stone removal as an outpatient within 2 weeks time upon discharge. Take your medications as prescribed. Please make sure that you are able to get your medications today by calling your pharmacy before you leave the hospital so that your treatment continuity is not broken. Home Health Attestation I certify that this patient is under my care and that I, or a physicians account management assistant working with me, had a face to-face encounter that meets the home health [id number] encounter requirements with this patient. The encounter with the patient was in whole, or in part, for the following medical condition, which is the primary reason for home health care (list medical condition): I certify that, based on my findings, the following services are medically necessary home health services: My clinical findings support the need for the above services because: Further, I certify that my clinical findings support that this patient is homebound (i.e. absences from home require considerable and taxing effort and are for medical reasons or orthodoxy services or infrequently or of short duration when for other reasons) because: Certification for Home Health Services: Based on the above findings, I certify that this patient is confined to the home and needs intermittent custodial care, physical therapy and/or speech therapy or continues to need occupational therapy. The patient is under my care, and I have initiated the establishment of the plan of care. This patient will be followed by a physician who will periodically review the plan of care. Total Time Total Time Spent Total Time Spent (In Minutes): 40 Discharge Plan Discharge Items Patient Disposition: Home - Self-Care Reason For Visit: UTI, KIDNEY STONE Discharge Diagnosis: Complicated UTI Activity: Resume your previous activity Non-emergency contact: Primary Care Provider Call non-emergency contact if: you have any medication questions and your symptoms worsen Follow-up/Referrals: Elise Zhang MD [Primary Care Provider] - (Date & Time 01/22/2024 10:40 AM Provider Sherry Mccollum PA-C Department Family Medicine [facility] ) Diet: Heart Healthy Addtl Attending Provider Instructions: Follow-up with your primary care physician within a week time and likely you will need labs CBC/CMP/magnesium/phosphorus. Complete the antibiotic to complete 14-day course. You will need to follow-up with urology for cystoscopy and left ureteroscopy with stone removal as an outpatient within 2 weeks time upon discharge. Take your medications as prescribed. Please make sure that you are able to get your medications today by calling your pharmacy before you leave the hospital so that your treatment continuity is not broken. Pending Studies at Discharge: No Stand-Alone Forms: My [facility], Smoking Cessation Medications and DC Order Prescriptions: New Advanced Probiotic 625 mg (10 billion cell) Capsule 1 cap PO DAILY 14 Days Qty: 14 0RF amoxicillin-pot clavulanate 875-125 mg tablet 1 tab PO BID 12 Days Qty: 24 0RF Continued calcium carbonate [Tums] 200 mg calcium (500 mg) Tablet,Chewable 500 mg PO QID PRN (Reason: dyspepsia) Qty: 14 0RF acetaminophen [Tylenol Extra Strength] 500 mg Tablet 500 mg PO Q6H PRN (Reason: pain) Qty: 14 0RF tamsulosin [Flomax] 0.4 mg capsule 0.4 mg PO HS Discharge Orders: Discharge Order (Routine); Ordered 01/16/24 Ordered By: Noa Guzman Admission Data Admit Date/Time: 01/14/24 00:31 Attending Provider: Noa Guzman Admit Provider: Suhail Betts Primary Care Provider: Elise Zhang Other Providers: Suhail Betts; Romel Bruce
== END 2024-01-16 11:50 | disposition home or self-care (01) | DRG 690 ==
LOC: ED 21:30 → 3E 01-14 00:31